=== PATIENT | male | born 1965 | race Caucasian/White ===

== ENCOUNTER → 2016-04-06 | Outpatient (REF) | payer MEDICARE ==
[~2016-04-06] MED LIST: /AUGM875TA PO; /ESOM40CA OR; /HYDR1TAB PO; /ONDA4TA PO; /PANT40TA PO; ACET65TA OR; ALBU0.084 INH; ALBU83IN INH; ALDA25TA2 PO; ALLE180T33 PO; ALLEGRA OR; ASTE0.15; ASTE0.15 INH; Allegra PO; CEFT2VL IV; CIPR500T4 OR; DOXYCYCLINE OR; EYESOL OU; FAMO20TA2 OR; FAMO40TA3 PO; FURO20TA2 PO; FURO40TA2 PO; GLUC500T OR; HYDR1CR TOP; INSULANT SC; LANTUS INSULIN SC; LASI40TA PO; LISI-542 PO; LISPRO SQ; MILK200C PO; MOM30SS PO; MULTIVIT PO; MULTTAB4 PO; NADO40TA PO; NOVOLOG100 MG/ML SC; No Historical Meds; PANT40TA2 PO; PEPC40SU PO; POTA-77 PO; PRIL20CA PO; PROA1AER INH; PROAAER INH; PROTPAK PO; SLF IV; SPIR50TA2 PO; SUCR1SS PO; VITA2000 PO; VITMTA PO; ZINC220C3 PO; [UNRECOGNIZED DRUG - CODE] IV; penicillin vk OR
[2016-04-06 14:26] LABS: BASO % 0.8 % (0.0-1.0); CALCIUM LEVEL 11.8 MG/DL (8.5-10.1); CREATININE FOR GFR 1.44 MG/DL (0.70-1.30); EOS # 0.1 K/mm3 (0.0-0.50); EOS % 2.9 % (0.0-3.0); GLOMERULAR FILTRATION RATE 55.3 (>56); LARGE UNSTAINED CELL # 0.1 K/mm3 (0.0-0.4); LARGE UNSTAINED CELL % 2.5 % (0.0-4.0); LYMPH # 0.5 K/mm3 (1.5-4.5); LYMPH % 12.9 % (24.0-44.0); MEAN CORPUSCULAR HEMOGLOBIN 32.1 pg (27.0-33.0); MEAN CORPUSCULAR HGB CONC 31.9 g/dl (32.0-36.5); MEAN CORPUSCULAR VOLUME 100.7 fl (80.0-96.0); MONO # 0.5 K/mm3 (0.0-0.8); MONO % 15.1 % (0.0-5.0); NEUTROPHILS % 65.7 % (36.0-66.0); POTASSIUM SERUM 4.1 MEQ/L (3.5-5.1); RED CELL DISTRIBUTION WIDTH 17.4 % (11.5-14.5); WHITE BLOOD COUNT 3.1 K/mm3 (4.0-10.0)
[2016-04-06 14:43] LABS: PLATELET COUNT, AUTOMATED 32 k/mm3 (150-450)
== END ==
LOC: M SFHCLERA 12:03
PROVIDERS: ATTEND Family Medicine
DX: D69.6 Thrombocytopenia, unspecified (principal); E83.52 Hypercalcemia; Z79.899 Other long term (current) drug therapy

== ENCOUNTER → 2016-05-16 | Outpatient (CLI) | payer MEDICARE ==
[~2016-05-16] VITALS: Ht 167.6 cm; Wt 81.6 kg
[~2016-05-16] MED LIST changes: +AFRI0.0511; +LIDOCAINE 2% INJ 100 MG/5 ML SDV (FOR ANES.) As Ordered ONE; +NS 1,000 ML IV SCH; +PROPOFOL 500 MG/50 ML VIAL As Ordered ONE; +TUMS500C PO
--- NOTE | 2016-05-16 09:20 | ROOR ---
Patient Name: Will Monet Procedure Date: 05/16/2016 9:02 AM Date of : 1965 Age: 50 Room: [facility] Gender: Male Note Status: Finalized Procedure: Upper GI endoscopy Indications: Cirrhosis rule out esophageal varices, Portal hypertension rule out esophageal varices, Follow-up of esophageal varices Providers: Gamaliel Lopez MD Referring MD: Padilla Zendejas Do Requesting Provider: Medicines: Monitored Anesthesia Care Complications: No immediate complications. Procedure: Pre-Anesthesia Assessment: - The heart rate, respiratory rate, oxygen saturations, blood pressure, adequacy of pulmonary ventilation, and response to care were monitored throughout the procedure. The Endoscope was introduced through the mouth, and advanced to the second part of duodenum. The upper GI endoscopy was accomplished without difficulty. The patient tolerated the procedure well. Findings: The Z-line was regular and was found 40 cm from the incisors. Grade I varices were found in the lower third of the esophagus. They were small in size. Moderate portal hypertensive gastropathy was found in the entire examined stomach. The exam of the duodenum was otherwise normal. Impression: - Z-line regular, 40 cm from the incisors. - Grade I esophageal varices. - Portal hypertensive gastropathy. - No specimens collected. - The examination was otherwise normal. Recommendation: - Patient has a contact number available for emergencies. The signs and symptoms of potential delayed complications were discussed with the patient. Return to normal activities tomorrow. Written discharge instructions were provided to the patient. - High fiber diet. - Discharge patient to home. - Continue present medications. - Return to referring physician. - The findings and recommendations were discussed with the patient's family. Gamaliel Lopez MD Gamaliel Lopez MD 05/16/2016 9:19:58 AM This report has been signed electronically. Number of Addenda: 0 Note Initiated On: 05/16/2016 9:02 AM Estimated Blood Loss: Estimated blood loss: none.
--- NOTE | 2016-05-16 09:44 | ROOR ---
Patient Name: Will Monet Procedure Date: 05/16/2016 9:03 AM Date of : 1965 Age: 50 Room: [facility] Gender: Male Note Status: Finalized Procedure: Colonoscopy to Cecum + Cold Snare Polypectomy + Hemoclips Indications: Rectal bleeding Providers: Gamaliel Lopez MD Referring MD: Padilla Zendejas Do Requesting Provider: Medicines: Monitored Anesthesia Care Complications: No immediate complications. Procedure: Pre-Anesthesia Assessment: - The heart rate, respiratory rate, oxygen saturations, blood pressure, adequacy of pulmonary ventilation, and response to care were monitored throughout the procedure. The Colonoscope was introduced through the anus and advanced to the cecum, identified by appendiceal orifice and ileocecal valve. The colonoscopy was performed without difficulty. The patient tolerated the procedure well. The quality of the bowel preparation was excellent. Findings: The perianal and digital rectal examinations were normal. A small polyp was found in the hepatic flexure. The polyp was sessile. The polyp was removed with a cold snare. Resection and retrieval were complete. To prevent bleeding after the polypectomy, one hemostatic clip was successfully placed (MR conditional). There was no bleeding at the end of the procedure. A small polyp was found at 60 cm proximal to the anus. The polyp was sessile. The polyp was removed with a cold snare. Resection and retrieval were complete. To prevent bleeding post-intervention, one hemostatic clip was successfully placed (MR conditional). There was no bleeding at the end of the procedure. Medium sized, non-bleeding rectal varices were found. The exam was otherwise without abnormality. Impression: - One small polyp at the hepatic flexure, removed with a cold snare. Resected and retrieved. Clip (MR conditional) was placed. - One small polyp at 60 cm proximal to the anus, removed with a cold snare. Resected and retrieved. Clip (MR conditional) was placed. - Rectal varices. - The examination was otherwise normal. - The exam was otherwise normal to the cecum. Recommendation: - Patient has a contact number available for emergencies. The signs and symptoms of potential delayed complications were discussed with the patient. Return to normal activities tomorrow. Written discharge instructions were provided to the patient. - High fiber diet. - Discharge patient to home. - Continue present medications. - Await pathology results. - Check Portal Online for Path Results. - Repeat colonoscopy in 5 years for surveillance based on pathology results. - Return to referring physician. - The findings and recommendations were discussed with the patient's family. Gamaliel Lopez MD Gamaliel Lopez MD 05/16/2016 9:44:11 AM This report has been signed electronically. Number of Addenda: 0 Note Initiated On: 05/16/2016 9:03 AM Estimated Blood Loss: Estimated blood loss: none.
[2016-05-16 10:15] VITALS: BP 133/57
== END | disposition home or self-care (01) ==
LOC: M OPP 08:02
PROVIDERS: ATTEND Internal Medicine Gastroenterology
DX: K62.5 Hemorrhage of anus and rectum (principal); D12.4 Benign neoplasm of descending colon; D12.3 Benign neoplasm of transverse colon; K64.8 Other hemorrhoids; K74.60 Unspecified cirrhosis of liver; I85.10 Secondary esophageal varices without bleeding; K76.6 Portal hypertension; K31.89 Other diseases of stomach and duodenum; Z86.79 Personal history of other diseases of the circulatory system; E10.9 Type 1 diabetes mellitus without complications; R12 Heartburn; D64.9 Anemia, unspecified; Z86.14 Personal history of Methicillin resistant Staphylococcus aureus infection; J45.909 Unspecified asthma, uncomplicated; G47.30 Sleep apnea, unspecified; F10.21 Alcohol dependence, in remission; Z79.4 Long term (current) use of insulin; Z79.899 Other long term (current) drug therapy

== ENCOUNTER 2016-07-30 10:19 | Inpatient (IN) | payer MEDICARE ==
[~2016-07-30] VITALS: Ht 167.6 cm; Wt 20.2 kg
[~2016-07-30 10:19] MED LIST changes: -LIDOCAINE 2% INJ 100 MG/5 ML SDV (FOR ANES.) As Ordered ONE; -NS 1,000 ML IV SCH; -PROPOFOL 500 MG/50 ML VIAL As Ordered ONE
[2016-07-30] MEDS ORDERED: SUCR1SS PO (10:33)
[2016-07-30] MEDS ORDERED: NADO40TA PO (10:33)
[2016-07-30] MEDS ORDERED: NS 500 ML IV ONE (13:00)
[2016-07-30 13:18] LABS: ALBUMIN 2.8 GM/DL (3.2-5.2); ALBUMIN/GLOBULIN RATIO 0.67 (1.00-1.93); ALKALINE PHOSPHATASE 156 U/L (45-117); ALT/SGPT 29 U/L (12-78); ANION GAP 11 MEQ/L (8-16); AST/SGOT 53 U/L (15-37); BILIRUBIN,DIRECT 3.3 MG/DL (0.0-0.2); BILIRUBIN,TOTAL 4.3 MG/DL (0.2-1.0); BLOOD UREA NITROGEN 31 MG/DL (7-18); CALCIUM LEVEL 12.7 MG/DL (8.5-10.1); CARBON DIOXIDE LEVEL 19 MEQ/L (21-32); CHLORIDE LEVEL 105 MEQ/L (98-107); CREATININE FOR GFR 2.06 MG/DL (0.70-1.30); GLOMERULAR FILTRATION RATE 36.6 (>56); GLUCOSE, FASTING 160 MG/DL (70-105); POTASSIUM SERUM 3.9 MEQ/L (3.5-5.1); SODIUM LEVEL 135 MEQ/L (136-145)
[2016-07-30 13:27] LABS: DIFF SLIDE NUMBER 255; MEAN CORPUSCULAR HEMOGLOBIN 26.7 pg (27.0-33.0); MEAN CORPUSCULAR VOLUME 88.9 fl (80.0-96.0); WHITE BLOOD COUNT 3.1 K/mm3 (4.0-10.0)
[2016-07-30 13:36] LABS: ADD MORPHOLOGY? YES; PLATELET COUNT, AUTOMATED 37 k/mm3 (150-450)
[2016-07-30 13:38] LABS: ANISOCYTOSIS 2+; HYPOCHROMASIA 3+; OVALOCYTES 2+
--- NOTE | 2016-07-30 14:19 | REP ---
PA and lateral chest: Comparison is a 2011. There are no focal infiltrates or pleural effusions. Cardiac size is mildly enlarged and has increased from the prior study. There is interstitial coarsening with cephalization of pulmonary vascular flow compatible with pulmonary vascular engorgement as an interval change. . The bandar and mediastinum are unremarkable. There is mild thoracic scoliosis convex right, unchanged. Signed by Trevon Sadler MD 07/30/2016 02:11 P
[2016-07-30 14:45] LABS: PERCENT SATURATION 8.1 % (19.7-37.4); TOTAL IRON BINDING CAPACITY 394 UG/DL (250-450)
[2016-07-30 14:50] LABS: FERRITIN 21 NG/ML (26-388)
[2016-07-30 15:01] LABS: RETIC HEMOGLOBIN CONTENT CHr 31.9 PG (24-36); RETICULOCYTE ABSOLUTE ADVIA212 98 x10(9)/L (17-77)
[2016-07-30] MEDS ORDERED: FURO40TA2 PO (15:11)
[2016-07-30] MEDS ORDERED: ONDANSETRON 4MG/2ML VIAL (J2405) IV PRN (16:00)
[2016-07-30] MEDS ORDERED: BISACODYL 5 MG TAB PO PRN (16:00)
[2016-07-30 16:07] LABS: INR 1.49
[2016-07-30] MEDS ORDERED: LORazepam 2 MG/ML VIAL (J2060) IV PRN (16:15)
[2016-07-30] MEDS ORDERED: CALCIUM CARBONATE 500 MG CHEW U/D PO PRN (16:15)
[2016-07-30] MEDS ORDERED: FEXOFENADINE 60 MG TAB PO PRN (16:15)
[2016-07-30] MEDS ORDERED: AZELASTINE 137MCG NASAL SPY 30 ML (ASTELIN) PRN (16:15)
[2016-07-30 17:50] VITALS: BP 140/71
--- NOTE | 2016-07-30 17:59 | REP ---
CT ABDOMEN: REASON: Elevated bilirubin. COMPARISON: 12/12/2015. The lack of intravenous contrast decreases the sensitivity of the exam. There are chronic lung base changes status quo. There are no pleural or pericardial effusions. Note is again made of a micronodular surface to the liver with an abnormal caudate to left lobe ratio. There is evidence of pericholecystic edema, difficult to evaluate on this noncontrast enhanced exam. There are no choleliths. There is splenomegaly. Limited evaluation of the pancreas and adrenal glands show no gross abnormalities or significant changes from the prior exam. There are no nephroliths. There is no evidence of ureterolithiasis or hydronephrosis. There is a small amount of free fluid anterior to the anterior hepatic edge representing a change from the prior exam. There is no evidence of free intraperitoneal air. The bowel loops and their mesenteries are within normal limits on this noncontrast enhanced exam. There is a small amount of fluid in the right pericolic gutter of uncertain etiology but representing a change from the prior exam. There is no free fluid or free air in the pelvis. There is no pelvic mass or adenopathy. Limited evaluation of the abdominal aorta and paraortic regions show no gross abnormalities or significant changes from the prior exam. Bone window technique throughout the examination shows the osseous structures to be stable and intact. IMPRESSION: 1. Cirrhosis of the liver and splenomegaly status quo. 2. Pericholecystic edema is suspected and seem in a limited fashion as described above but essentially unchanged from the contrast enhanced examination of 12/12/2015. This should be correlated clinically for acute cholecystitis. 3. Small amount of free intraperitoneal fluid of uncertain etiology as described above. Consider followup examination after the administration of both oral bowel preparatory contrast and intravenous contrast agents. 4. Other findings as described above. Signed by Maged Licea DO 07/31/2016 10:07 A
[2016-07-30] MEDS: HumaLOG INSULIN (NovoLOG) PER UNIT SC SCH ×2 (18:48→21:00)
[2016-07-30] MEDS: PANTOPRAZOLE 40MG INJ (PROTONIX) (C9113) IV SCH (18:50)
[2016-07-30 19:45] VITALS: BP 130/62
[2016-07-30 20:00] VITALS: BP 118/59
[2016-07-30] MEDS: cefTRIAXone SOD 1 GM in D5W MINI-BAG PLUS 50 ML IV SCH (21:00)
[2016-07-30] MEDS ORDERED: MULTIVITAMINS/MINERALS THERAP 1 TAB PO SCH (21:00)
[2016-07-30] MEDS: OXYMETAZOLINE NASAL SPRAY (AFRIN) SCH (21:00)
[2016-07-30] MEDS: VITAMIN D 1,000 INTERNATIONAL UNITS TABLET PO SCH (21:10)
[2016-07-30] MEDS: OXAZEPAM 10 MG CAP PO SCH (21:13)
[2016-07-30] MEDS: SUCRALFATE SUSP 1GM/10ML UD PO SCH (21:13)
[2016-07-30] MEDS: NADOLOL 20MG TABLET PO SCH (21:13)
[2016-07-30] MEDS: MULTIVITAMIN -ADULT INJECTION 10 ML, THIAMINE INJection 100 MG, FOLIC ACID 1 MG in NS 1... IV ONE (22:00)
[2016-07-30 22:20] VITALS: BP 115/57
[2016-07-30 23:30] VITALS: BP 107/54
[2016-07-31] VITALS (8 sets, daily range): BP systolic 97–133; BP diastolic 54–70
[2016-07-31] MEDS ORDERED: FUROSEMIDE 20 MG/2 ML VIAL (J1940) IV ONE (00:45)
[2016-07-31] MEDS: MULTIVITAMIN -ADULT INJECTION 10 ML, THIAMINE INJection 100 MG, FOLIC ACID 1 MG in NS 1... IV ONE (05:07)
[2016-07-31 05:39] LABS: DIFF SLIDE NUMBER 86; MEAN CORPUSCULAR HEMOGLOBIN 28.3 pg (27.0-33.0); MEAN CORPUSCULAR HGB CONC 31.9 g/dl (32.0-36.5); MEAN CORPUSCULAR VOLUME 88.7 fl (80.0-96.0); RED CELL DISTRIBUTION WIDTH 19.2 % (11.5-14.5)
[2016-07-31 05:46] LABS: PLATELET COUNT, AUTOMATED 41 k/mm3 (150-450)
[2016-07-31 05:49] LABS: ALBUMIN 2.9 GM/DL (3.2-5.2); ALBUMIN/GLOBULIN RATIO 0.66 (1.00-1.93); BILIRUBIN,TOTAL 6.6 MG/DL (0.2-1.0); CREATININE FOR GFR 1.83 MG/DL (0.70-1.30); GLOMERULAR FILTRATION RATE 41.9 (>56); MAGNESIUM LEVEL 1.4 MG/DL (1.8-2.4); POTASSIUM SERUM 3.4 MEQ/L (3.5-5.1); TOTAL PROTEIN 7.3 GM/DL (6.4-8.2)
[2016-07-31 06:15] LABS: ANISOCYTOSIS 2+; BANDS 1 % (< 11); BASOPHILS 1 % (0-4); EOSINOPHILS 2 % (0-5); NUCLEATED RED BLOOD CELL 1 % (0-0)
[2016-07-31] MEDS ORDERED: MAG SULF 1GM/100ML (MAG RUN) 1 GM in APPROPRIATE DILUENT 1 EA IV ONE (06:15)
[2016-07-31 06:16] LABS: HYPOCHROMASIA 2+
[2016-07-31 06:17] LABS: OVALOCYTES 2+
[2016-07-31] MEDS: OXAZEPAM 10 MG CAP PO SCH ×3 (06:36→21:55)
[2016-07-31] MEDS: HumaLOG INSULIN (NovoLOG) PER UNIT SC SCH ×4 (07:30→21:00)
--- NOTE | 2016-07-31 09:15 | HPE ---
DATE OF ADMISSION: 07/30/2016 PRIMARY CARE PHYSICIAN: Dr. Lee BREAKER MACHINE OPERATOR/ONCOLOGIST: Dr. Cardona DEV TECHNICAL MGR: Dr. Lopez CHIEF COMPLAINT: Weakness as well as shortness of breath. HISTORY OF PRESENT ILLNESS: Mr. Monet is a 50-year-old male with multiple past medical history who presented to emergency room (ER) due to experiencing weakness as well as shortness of breath since yesterday afternoon. 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 Patient expressed that his mother told him that he might have heat stroke. He went back home and he laid down and he felt better. However, he noticed that, with any activities, he became out of breath and he felt tired. This morning, patient continued to feel tired. Patient denies having hematochezia, hemoptysis, or melena. Patient also denied syncope or seizure-type activities; however, patient had two episodes of lightheadedness and he expressed that the lightheadedness and dizziness is not positional and he had them while he was standing. Patient denies sick contact. Patient denies fever, chills, or night sweats. Patient denies weight loss. Patient expressed that last time he drank alcohol was about a week and a half ago. Patient denies problem with bleeding, including when he is brushing his teeth or epistaxis. Patient denies losing his appetite, and he was tolerating oral. Patient expressed that he has been experiencing diarrhea, which started about on Saturday and he had more than five episodes of diarrhea; however, diarrhea became better until Saturday, when it was gone, and he did not have any diarrhea today. HOME MEDICATIONS: - azelastine hydrochloride two sprays NA daily as needed nasal congestion - Tums 500 mg by mouth daily as needed indigestion - vitamin D3, 2000 units by mouth nightly - Shamika Allergy 180 mg by mouth daily as needed congestion - furosemide 40 mg by mouth nightly - Lantus 30 dose subcutaneously (SC) every morning - Lantus 40 units SC nightly - multivitamin one tablet by mouth nightly - nadolol 40 mg by mouth nightly - Afrin 12 hours two sprays NA twice a day nasal congestion - pantoprazole sodium 40 mg by mouth nightly - spironolactone 100 mg by mouth nightly - Carafate 20 mL by mouth nightly ALLERGIES: Environmental allergies. However, patient does not have known drug allergies. PAST MEDICAL HISTORY: 1. Diabetes mellitus type 2. 2. Gastroesophageal reflux disease (GERD). 3. Asthma. 4. Alcoholic cirrhosis. 5. Subcutaneous bacterial endocarditis. 6. Hypertension. 7. Hypercholesterolemia. 8. 12/01/2011 colonoscopy plus adenomas, recurrent colonoscopy in 7-10 years. 9. 12/10/2011 esophagogastroduodenoscopy (EGD) none to mild small varices noted. 10. Grade 1 esophageal varices in one banding and portal hypertension, gastrotomy. 11. 10/15/2014 model for end-stage liver disease (MELD) score 17. PAST SURGICAL HISTORY: 1. Right rotator cuff surgery 2005. 2. EGD with varices banding 09/08/2014. 3. EGD 2015. 4. EGD 05/16/2016, which indicated rectal varices and one small polyp at 60 cm from proximal in anus and one small polyp at the hepatic flexure. 5. EGD which was done 05/16/2016, which indicated portal hypertensive gastrotomy and grade 1 esophageal varices. REVIEW OF SYSTEMS: GENERAL: Patient denies fevers, chills, night sweats, weight loss, weight gain. HEENT: Patient reported two episodes of lightheadedness and dizziness. However, patient denies acute vision or hearing changes. Patient denies sinusitis or problem with chewing food. NECK: Patient denies lumps, bumps, or decreased range of motion of his neck. HEART: Patient denies palpitations, racing or skipping heartbeat, chest pain. LUNGS: Patient expressed that he has been having dyspnea with activities since yesterday. Patient also has chronic cough. However, patient denies increase of his cough. ABDOMEN: Patient denies abdominal pain, nausea, vomiting, diarrhea, constipation , melena, hematochezia, hematemesis. NEUROLOGICAL: Patient denies history of transient ischemic attack (TIA), cerebrovascular accident (CVA), seizure-type activities. PHYSICAL EXAMINATION: VITAL SIGNS: Temperature 99.3, pulse 66, respiratory rate 18, blood pressure 116/55, pulse oximetry 94% on room air. GENERAL APPEARANCE: Patient was lying in bed in no acute distress. Patient was awake, alert, and oriented to time, place, and person. HEENT: Normocephalic, atraumatic. Pupils are equal and reactive to light. Patient has scleral icterus. Oral mucosa is moist. NECK: Soft, supple. No lymphadenopathy or thyromegaly. No jugular venous distention (JVD). HEART: Regular rate and rhythm. Normal S1, S2. ABDOMEN: Soft, extended. Positive bowel sounds in all quadrants. Patient has distended liver. LUNGS: Patient has clear breath sounds bilaterally. Good air movement. EXTREMITIES: Patient has lower extremity edema. +2 pulses in both lower extremities. Feet are warm. Patient's feet sensation has decreased, mostly on the toes, equally. However, patient has normal range of motion both upper and lower extremities. NEUROLOGICAL: Cranial nerves II-XII are intact. No focal deficiencies. LABORATORY DATA: White blood cells 3.1, red blood cells 2.24, hemoglobin 6, hematocrit 19.9, MCV 88.9, MCH 26.7, MCHC 30, RDW 20, platelet count 37, platelet estimate markedly decreased, hypochromasia 3+, anisocytosis 2+, ovalocytes 2+, absolute reticulocyte 98, percent reticulocyte 4.30, reticulocyte hemoglobin content (CHr) 31.9. PT 18.1, INR 1.49. Sodium 135, potassium 3.9, chloride 105, carbon dioxide 19, BUN 31, anion gap 11 , creatinine 2.06, glomerular filtration rate 36.6, fasting glucose 160. Lactic acid 2.1. Calcium 12.7, iron 32, TIBC 394, transferrin percentage saturation 8.1 , ferritin 21, total bilirubin 4.3, direct bilirubin 3.3, AST 53, ALT 29, alkaline phosphatase 156. Ammonia 68. Total creatinine kinase 63, CK-MB 1.8, CK-MB relative index 2.85, troponin I less than 0.02, total protein 7, albumin 2.8, TSH 3.23. Urinalysis (UA): Urine color yellow, urine appearance clear, urine pH 6, urine specific gravity 1.008, urine protein negative, urine glucose negative, urine ketones negative, urine blood negative, urine nitrite negative, urine bilirubin negative, urine urobilinogen 0.2, urine leukocyte esterase negative, urine white blood cells 1, urine red blood cells 0, urine hyaline casts 1, urine bacteria negative, urine squamous epithelial cells 0. Urine toxicology: Ethyl alcohol 0.14. Blood culture is pending. Chest x-ray, which is compared to 10/03/2011, shows no focal infiltrate or pleural effusion. Cardiac size is mildly enlarged and increased from the prior study. There is interstitial coarsening with cephalization of the pulmonary vascular flow compatible with the pulmonary vascular engorgement as an interval change. The bandar and mediastinum are unremarkable. There is mild thoracic scoliosis convex right, unchanged. ASSESSMENT AND PLAN: 1. Symptomatic anemia. This is possibly secondary to gastrointestinal (GI) bleeding. At this time, we made the patient nothing by mouth. Will give 2 units of red blood cells. We will continue monitoring the hemoglobin and hematocrit. I have consulted Dr. Lopez, who will see the patient tomorrow. Patient has had colonoscopy, which was done on 05/16/2016 which was done by Dr. Lopez, which indicated rectal varices and EGD on the same date, which was done by Dr. Lopez, which indicated grade 1 esophageal varices. these varices possibly contributed to patient's current GI bleeding. Also, we have performed iron studies, which indicated decreased iron, which is possibly secondary to GI bleeding. 2. Pancytopenia. This is possibly multifactorial, related to liver cirrhosis, alcoholism, folate deficiency. At this time, we will continue monitoring patient's complete blood count (CBC); however, we have not ordered platelet transfusion at this time due to patient being stable. However, if patient develop gross bleeding, we will infuse platelets. 3. Alcoholic cirrhosis. This is a chronic issue for the patient. At this time, we will continue patient on nadolol due to varices. Dr. Lopez will visit the patient tomorrow. 4. Diabetes type 2. At home, patient is on Levemir 40 units nightly and 30 units every morning; however, at this time, we made the patient nothing by mouth and, therefore, we have held the Levemir. We will continue patient on the sliding scale and fingersticks every 6 hours. 5. Acute kidney injury. This is possibly pre-azotemia (hepatorenal effect versus hypovolemia secondary to anemia) as well as azotemia (medications including spironolactone and furosemide). At this time, we have started patient with blood transfusion. Also, I have stopped spironolactone and furosemide. We will continue monitoring patient for any abnormal symptoms. 6. Deep venous thrombosis (DVT) prophylaxis. Patient has thrombocytopenia as well as GI bleeding disorder. At this time, we will continue patient on thromboembolism deterrents (TEDs) and sequentials. 7. Alcoholism. I have started patient on a banana bag for day. However, tomorrow , I have started patient on PO folic acid, B12, and thiamine. Also, due to patient continuing alcohol abuse and the toxicology indicated high level of ethyl alcohol, we have started patient on Serax 10 mg every 8 hours by mouth and Ativan 1 mg every 1 hour as needed agitation and withdrawal. 8. Elevated lactic acid. This is possibly secondary to stress. We will repeat the lactic acid in 4 hours. Result is pending at this time. However, we have ordered blood culture and the result is pending. 9. Allergies. We will continue patient on Astelin two sprays daily as needed nasal congestion as well as Shamika as well as Afrin one spray each nostril twice a day. 10. Antibiotic prophylaxis for patients with risk factors for spontaneous bacterial peritonitis (SBP): since patient has cirrhosis and gastrointestinal bleeding with possible Child-Flores class B or C cirrhosis, therefore I have started him on ceftriaxone for prophylaxis. 11. Iron deficiency: we have performed iron studies, which indicated decreased iron level, which is possibly secondary to GI bleeding. Patient schedule to receive two unit of RBC. My preceptor for this patient encounter was Dr. Bong Ayala. The preceptor was physically present in the building during the encounter and was fully available. As needed, all aspects of the patient interview, examination, medical decision making process, and medical care plan development were reviewed and approved by the preceptor. The preceptor is aware and concurs with the plan as stated in the body of this note and will attest to such by his/her cosignature. SIMI
--- NOTE | 2016-07-31 09:19 | ECGEPIP ---
Stationary ECG Study [facility] - ED Test Date: 2016-07-30 Pat Name: ROSE ARMIJO Department: Room: [place] [address] Gender: M Cable Splicer: kecia : 1965 Requested By: JORGE Giron Order Number: [id number] Reading MD: Dottie Eric Measurements Intervals [place] Rate: 64 P: 51 MN: 232 QRS: 94 QRSD: 118 T: 12 QT: 409 QTc: 423 Interpretive Statements SINUS RHYTHM WITH FIRST DEGREE AV BLOCK BORDERLINE RIGHT AXIS DEVIATION MODERATE INTRAVENTRICULAR CONDUCTION DELAY Electronically Signed On 07-31-2016 9:18:50 EDT by Dottie Eric
[2016-07-31] MEDS: OXYMETAZOLINE NASAL SPRAY (AFRIN) SCH ×2 (09:44→21:00)
[2016-07-31] MEDS: cefTRIAXone SOD 1 GM in D5W MINI-BAG PLUS 50 ML IV SCH ×2 (09:44→21:54)
[2016-07-31] MEDS: THIAMINE 100 MG TAB PO SCH (09:44)
[2016-07-31] MEDS: CYANOCOBALAMIN 500 MCG TAB PO SCH (09:44)
[2016-07-31] MEDS: FOLIC ACID 1 MG TAB PO SCH (09:44)
[2016-07-31] MEDS ORDERED: NS 1,000 ML IV SCH (12:26)
--- NOTE | 2016-07-31 15:00 | IPNPDOC ---
Subjective Date Seen The patient was seen on 07/31/16. Subjective Chief Complaint/HPI The patient is a 50-year-old male admitted with a reason for visit of Acute Renal Failure. Events since last encounter Feeling a little stronger, no blood per rectum, no melena, would like to try diet, no abd pain Constitutional: Denies: Chills, Fever Pulmonary: Denies: Dyspnea, Cough Cardiovascular: Denies: Chest Pain Gastrointestinal: Denies: Nausea, Vomiting Objective Physical Examination General Exam: Positive: Alert, Cooperative, No Acute Distress Eye Exam: Positive: PERRLA ENT Exam: Positive: Mucous membr. moist/pink Chest Exam: Positive: Clear to auscultation, Negative: Rales, Rhonchi Heart Exam: Positive: Rate Normal, Normal S1 Telemetry: Positive: No significant arrhythmia Abdomen Exam: Positive: BS Hypoactive, Soft, Negative: Tenderness Extremity Exam: Positive: Edema Assessment /Plan Problems (1) Anemia due to gastrointestinal blood loss Status: Acute Discussed With: Shampooer Problem Text: Symptomatic anemia, with heme positive stool Discussed plans for egd 08/01/[address] Lopez Can have diet today, NPO at midnight for procedure 3 Units PRBC transfused (2) ARF (acute renal failure) Status: Acute Response to Treatment: Improving Problem Text: Given IVF Now eating , will restart fluid in am (3) Alcohol withdrawal Status: Acute Problem Text: on serax, ativan received banana bag no tremor/anxiety/over sedation- monitor for withdrawal (4) Alcoholic cirrhosis Status: Chronic (5) Thrombocytopenia Status: Chronic (6) DM2 (diabetes mellitus, type 2) Status: Chronic Plan/VTE VTE Prophylaxis Ordered?: Yes VS, I&O, 24H, [facility] Vital Signs/I&O Vital Signs Date Time Temp Pulse Resp B/P (MAP) Pulse Ox O2 Delivery O2 Flow Rate FiO2 07/31/16 11:31 98.1 64 18 115/65 (82) 97 Room Air I&O- Last 24 Hours up to 6 AM 07/31/16 05:59 Intake Total 1497 ml Output Total 1650 ml Balance -153 ml Laboratory Data 24H LABS Laboratory Tests 2 07/30/16 17:12: Urine Appearance CLEAR, Urine Color YELLOW, Urine pH 6.0, Urine Specific Kemp 1.008, Urine Protein NEGATIVE, Urine Glucose (UA) NEGATIVE, Urine Ketones NEGATIVE, Urine Urobilinogen 0.2, Urine Bilirubin NEGATIVE, Urine Leukocyte Esterase NEGATIVE, Urine Blood NEGATIVE, Urine Nitrite NEGATIVE, Urine WBC (Auto) 1, Urine RBC (Auto) 0, Urine Hyaline Casts (Auto) 1, Urine Bacteria (Auto) NEGATIVE, Urine Squamous Epithelial Cells 0, Urine Sperm (Auto) 07/30/16 18:26: Lactic Acid Followup at 4 Hours 1.4, Total Creatine Kinase 80, Creatine Kinase MB 1.3, Creatine Kinase MB Relative Index 1.62, Troponin I < 0.02 07/30/16 21:17: Bedside Glucose (Misc Panel) 175H 07/30/16 23:29: Total Creatine Kinase 74, Creatine Kinase MB 1.6, Creatine Kinase MB Relative Index 2.16, Troponin I 0.04# 07/31/16 01:48: Bedside Glucose (Misc Panel) 158H 07/31/16 05:08: Neutrophils 75, Band Neutrophils 1, Lymphocytes (Manual) 14L, Monocytes (Manual ) 7, Eosinophils (Manual) 2, Basophils (Manual) 1, Nucleated Red Blood Cells 1H , Platelet Estimate MARKED DECREASE, Hypochromasia 2+, Anisocytosis 2+, Ovalocytes 2+, Anion Gap 9, Glomerular Filtration Rate 41.9L, Blood Urea Nitrogen 32H, Creatinine 1.83H, Sodium Level 137, Potassium Level 3.4L, Chloride Level 107, Carbon Dioxide Level 21, Calcium Level 12.0H, Aspartate Amino Transf (AST/SGOT) 53H, Alanine Aminotransferase (ALT/SGPT) 25, Alkaline Phosphatase 143H, Total Bilirubin 6.6#H, Total Protein 7.3, Albumin 2.9L, Magnesium Level 1.4L, Albumin/Globulin Ratio 0.66L 07/31/16 12:09: Bedside Glucose (Misc Panel) 167H CBC/BMP Laboratory Tests 07/30/16 18:26 07/30/16 23:29 07/31/16 05:08 Red Blood Count 2.98 L, Mean Corpuscular Volume 88.7, Mean Corpuscular Hemoglobin 28.3, Mean Corpuscular Hemoglobin Concent 31.9 L, Red Cell Distribution Width 19.2 H, Calcium Level 12.0 H, Aspartate Amino Transf (AST/ SGOT) 53 H, Alanine Aminotransferase (ALT/SGPT) 25, Alkaline Phosphatase 143 H, Total Bilirubin 6.6 #H, Total Protein 7.3, Albumin 2.9 L 07/31/16 10:14 Microbiology Microbiology 07/30/16 Blood Culture - Preliminary, Resulted No growth after 24 hours . All specim... 07/30/16 Blood Culture - Preliminary, Resulted No growth after 24 hours . All specim... JORGE TRUJILLO MD Jul 31, 2016 15:00
[2016-07-31] MEDS: PANTOPRAZOLE 40MG INJ (PROTONIX) (C9113) IV SCH (17:51)
[2016-07-31] MEDS: NADOLOL 20MG TABLET PO SCH (21:00)
[2016-07-31] MEDS: VITAMIN D 1,000 INTERNATIONAL UNITS TABLET PO SCH (21:54)
[2016-07-31] MEDS: SUCRALFATE SUSP 1GM/10ML UD PO SCH (21:55)
[2016-07-31] MEDS: MULTIVITAMINS/MINERALS THERAP 1 TAB PO SCH (21:55)
[2016-08-01] MEDS: OXAZEPAM 10 MG CAP PO SCH ×3 (05:13→22:16)
[2016-08-01 06:00] VITALS: BP 168/95
[2016-08-01 06:10] LABS: BASO % 0.8 % (0.0-1.0); EOS # 0.2 K/mm3 (0.0-0.50); EOS % 5.2 % (0.0-3.0); LARGE UNSTAINED CELL # 0.1 K/mm3 (0.0-0.4); LARGE UNSTAINED CELL % 3.8 % (0.0-4.0); LYMPH # 0.5 K/mm3 (1.5-4.5); LYMPH % 15.8 % (24.0-44.0); MEAN CORPUSCULAR HEMOGLOBIN 28.1 pg (27.0-33.0); MEAN CORPUSCULAR HGB CONC 31.1 g/dl (32.0-36.5); MEAN CORPUSCULAR VOLUME 90.3 fl (80.0-96.0); MONO # 0.4 K/mm3 (0.0-0.8); MONO % 13.1 % (0.0-5.0); NEUTROPHILS # 1.8 K/mm3 (1.8-7.7); NEUTROPHILS % 61.3 % (36.0-66.0); RED CELL DISTRIBUTION WIDTH 19.7 % (11.5-14.5); WHITE BLOOD COUNT 2.9 K/mm3 (4.0-10.0)
[2016-08-01 06:11] LABS: PLATELET COUNT, AUTOMATED 39 k/mm3 (150-450)
[2016-08-01 06:29] LABS: ALBUMIN 2.9 GM/DL (3.2-5.2); ALBUMIN/GLOBULIN RATIO 0.64 (1.00-1.93); BILIRUBIN,TOTAL 5.5 MG/DL (0.2-1.0); CALCIUM LEVEL 11.6 MG/DL (8.5-10.1); CREATININE FOR GFR 1.57 MG/DL (0.70-1.30); MAGNESIUM LEVEL 1.4 MG/DL (1.8-2.4); POTASSIUM SERUM 3.2 MEQ/L (3.5-5.1); TOTAL PROTEIN 7.4 GM/DL (6.4-8.2)
[2016-08-01] MEDS: HumaLOG INSULIN (NovoLOG) PER UNIT SC SCH ×4 (07:30→21:00)
[2016-08-01] MEDS: THIAMINE 100 MG TAB PO SCH (07:52)
[2016-08-01] MEDS: FOLIC ACID 1 MG TAB PO SCH (07:52)
[2016-08-01] MEDS: CYANOCOBALAMIN 500 MCG TAB PO SCH (07:53)
[2016-08-01] MEDS ORDERED: KCL 10MEQ IN 100ML SWI (KRUN) 10 MEQ in APPROPRIATE DILUENT 1 EA IV ONE ×2 (08:00)
[2016-08-01] MEDS ORDERED: NS 1,000 ML IV SCH (08:00)
[2016-08-01] MEDS: OXYMETAZOLINE NASAL SPRAY (AFRIN) SCH (09:00)
[2016-08-01] MEDS: cefTRIAXone SOD 1 GM in D5W MINI-BAG PLUS 50 ML IV SCH ×2 (09:28→22:18)
[2016-08-01] MEDS: MAG SULF 1GM/100ML (MAG RUN) 1 GM in APPROPRIATE DILUENT 1 EA IV SCH ×2 (09:29→10:44)
[2016-08-01] MEDS ORDERED: PROPOFOL 200 MG/20 ML VIAL As Ordered ONE (15:00)
[2016-08-01] MEDS ORDERED: LIDOCAINE 2% INJ 100 MG/5 ML SDV (FOR ANES.) As Ordered ONE (15:00)
--- NOTE | 2016-08-01 15:22 | IPNPDOC ---
Subjective Date Seen The patient was seen on 08/01/16. Subjective Chief Complaint/HPI The patient is a 50-year-old male admitted with a reason for visit of Acute Renal Failure. Events since last encounter Somewhat anxious about egd, not tremulous, not hungry, no pain, no n/v Constitutional: Denies: Chills, Fever Pulmonary: Denies: Dyspnea, Cough Cardiovascular: Denies: Chest Pain, Palpitations Gastrointestinal: Denies: Nausea, Vomiting, Abdominal Pain Psych: Reports: Anxiety Objective Physical Examination General Exam: Positive: Alert, Cooperative, No Acute Distress Eye Exam: Positive: PERRLA, Negative: Sclera icteric ENT Exam: Positive: Mucous membr. moist/pink Chest Exam: Positive: Clear to auscultation, Negative: Rales, Rhonchi, Wheezing Heart Exam: Positive: Rate Normal, Normal S1 Abdomen Exam: Positive: BS Hypoactive, Soft, Negative: Tenderness Extremity Exam: Positive: Edema Assessment /Plan Problems (1) Anemia due to gastrointestinal blood loss Status: Acute Discussed With: Manager Academic Problem Text: Symptomatic anemia, with heme positive stool Discussed plans for egd 08/01/[address] Lopez NPO for procedure today, egd with banding if needed 3 Units PRBC transfused (2) ARF (acute renal failure) Status: Acute Response to Treatment: Improving Problem Text: on IVF while npo (3) Alcohol withdrawal Status: Acute Problem Text: on serax, ativan received banana bag no tremor/anxiety/over sedation- monitor for withdrawal- not interested in rehab (4) Alcoholic cirrhosis Status: Chronic (5) Thrombocytopenia Status: Chronic (6) DM2 (diabetes mellitus, type 2) Status: Chronic Plan/VTE VTE Prophylaxis Ordered?: Yes VS, I&O, 24H, Fishbone Vital Signs/I&O Vital Signs Date Time Temp Pulse Resp B/P (MAP) Pulse Ox O2 Delivery O2 Flow Rate FiO2 08/01/16 06:00 98.0 57 17 168/95 (119) 95 Room Air I&O- Last 24 Hours up to 6 AM 08/01/16 06:00 Intake Total 1862.5 ml Output Total 800 ml Balance 1062.5 ml Laboratory Data 24H LABS Laboratory Tests 2 07/31/16 17:16: Bedside Glucose (Misc Panel) 165H 07/31/16 21:12: Bedside Glucose (Misc Panel) 179H 08/01/16 05:37: White Blood Count 2.9L, Red Blood Count 3.09L, Hemoglobin 8.7L, Hematocrit 27.9L , Mean Corpuscular Volume 90.3, Mean Corpuscular Hemoglobin 28.1, Mean Corpuscular Hemoglobin Concent 31.1L, Red Cell Distribution Width 19.7H, Platelet Count 39L, Neutrophils (%) (Auto) 61.3, Lymphocytes (%) (Auto) 15.8L, Monocytes (%) (Auto) 13.1H, Eosinophils (%) (Auto) 5.2H, Basophils (%) (Auto) 0.8, Neutrophils # (Auto) 1.8, Lymphocytes # (Auto) 0.5L, Monocytes # (Auto) 0.4 , Eosinophils # (Auto) 0.2, Basophils # (Auto) 0.0, Large Unclassified Cells % 3.8, Large Unclassified Cells # 0.1, Anion Gap 9, Glomerular Filtration Rate 50.0L, Blood Urea Nitrogen 28H, Creatinine 1.57H, Sodium Level 141, Potassium Level 3.2L, Chloride Level 111H, Carbon Dioxide Level 21, Calcium Level 11.6H, Aspartate Amino Transf (AST/SGOT) 59H, Alanine Aminotransferase (ALT/SGPT) 30, Alkaline Phosphatase 125H, Total Bilirubin 5.5H, Total Protein 7.4, Albumin 2.9L , Magnesium Level 1.4L, Albumin/Globulin Ratio 0.64L CBC/BMP Laboratory Tests 07/31/16 15:55 07/31/16 22:00 08/01/16 05:37 Red Blood Count 3.09 L, Mean Corpuscular Volume 90.3, Mean Corpuscular Hemoglobin 28.1, Mean Corpuscular Hemoglobin Concent 31.1 L, Red Cell Distribution Width 19.7 H, Neutrophils (%) (Auto) 61.3, Lymphocytes (%) (Auto) 15.8 L, Monocytes (%) (Auto) 13.1 H, Eosinophils (%) (Auto) 5.2 H, Basophils (% ) (Auto) 0.8, Neutrophils # (Auto) 1.8, Lymphocytes # (Auto) 0.5 L, Monocytes # (Auto) 0.4, Eosinophils # (Auto) 0.2, Basophils # (Auto) 0.0, Calcium Level 11.6 H, Aspartate Amino Transf (AST/SGOT) 59 H, Alanine Aminotransferase (ALT/ SGPT) 30, Alkaline Phosphatase 125 H, Total Bilirubin 5.5 H, Total Protein 7.4, Albumin 2.9 L Microbiology Microbiology 07/30/16 Blood Culture - Preliminary, Resulted No Growth after 48 hours. All Specime... 07/30/16 Blood Culture - Preliminary, Resulted No Growth after 48 hours. All Specime... JORGE TRUJILLO MD Aug 01, 2016 15:22
[2016-08-01] MEDS: PANTOPRAZOLE 40MG INJ (PROTONIX) (C9113) IV SCH (17:18)
[2016-08-01 22:00] VITALS: BP 139/71
[2016-08-01] MEDS: SUCRALFATE SUSP 1GM/10ML UD PO SCH (22:16)
[2016-08-01] MEDS: MULTIVITAMINS/MINERALS THERAP 1 TAB PO SCH (22:16)
[2016-08-01] MEDS: VITAMIN D 1,000 INTERNATIONAL UNITS TABLET PO SCH (22:16)
[2016-08-01 22:18] VITALS: BP 139/73
[2016-08-01] MEDS: NADOLOL 20MG TABLET PO SCH (22:18)
[2016-08-02 05:47] LABS: BASO # 0.1 K/mm3 (0.0-0.2); EOS # 0.1 K/mm3 (0.0-0.50); EOS % 4.8 % (0.0-3.0); LARGE UNSTAINED CELL # 0.1 K/mm3 (0.0-0.4); LARGE UNSTAINED CELL % 3.8 % (0.0-4.0); LYMPH # 0.5 K/mm3 (1.5-4.5); LYMPH % 16.8 % (24.0-44.0); MEAN CORPUSCULAR HEMOGLOBIN 27.5 pg (27.0-33.0); MEAN CORPUSCULAR HGB CONC 30.1 g/dl (32.0-36.5); MEAN CORPUSCULAR VOLUME 91.4 fl (80.0-96.0); MONO # 0.4 K/mm3 (0.0-0.8); MONO % 12.9 % (0.0-5.0); NEUTROPHILS # 1.8 K/mm3 (1.8-7.7); NEUTROPHILS % 59.6 % (36.0-66.0); RED CELL DISTRIBUTION WIDTH 19.7 % (11.5-14.5)
[2016-08-02 05:48] LABS: PLATELET COUNT, AUTOMATED 34 k/mm3 (150-450)
[2016-08-02 05:51] LABS: ALBUMIN 2.6 GM/DL (3.2-5.2); ALBUMIN/GLOBULIN RATIO 0.58 (1.00-1.93); CALCIUM LEVEL 10.8 MG/DL (8.5-10.1); CREATININE FOR GFR 1.52 MG/DL (0.70-1.30); GLOMERULAR FILTRATION RATE 51.9 (>56); MAGNESIUM LEVEL 1.7 MG/DL (1.8-2.4); POTASSIUM SERUM 3.4 MEQ/L (3.5-5.1); TOTAL PROTEIN 7.1 GM/DL (6.4-8.2)
[2016-08-02 06:00] VITALS: BP 107/66
[2016-08-02] MEDS: OXAZEPAM 10 MG CAP PO SCH (06:16)
[2016-08-02] MEDS: HumaLOG INSULIN (NovoLOG) PER UNIT SC SCH ×2 (07:30→12:00)
[2016-08-02] MEDS: THIAMINE 100 MG TAB PO SCH (09:36)
[2016-08-02] MEDS: CYANOCOBALAMIN 500 MCG TAB PO SCH (09:36)
[2016-08-02] MEDS: FOLIC ACID 1 MG TAB PO SCH (09:36)
[2016-08-02] MEDS: cefTRIAXone SOD 1 GM in D5W MINI-BAG PLUS 50 ML IV SCH (09:37)
[2016-08-02] MEDS ORDERED: OXAZ10CA PO (11:23)
[2016-08-02] MEDS ORDERED: VITA100T60 PO (11:23)
[2016-08-02] MEDS ORDERED: FOLI1TAB2 PO (11:23)
[2016-08-02] MEDS ORDERED: POTASSIUM CHLORIDE 10 MEQ SR TABLET PO ONE (11:30)
--- NOTE | 2016-08-02 21:54 | CR ---
DATE OF CONSULTATION: 08/01/2016 This is a 50-year-old white male who was admitted to [facility] ([facility]) for evaluation of acute anemia. The patient has a known history of heavy alcohol abuse. He has had an upper endoscopy and colonoscopy in April which showed some grade 1 varices, but no obvious active bleeding. The patient now admitted to the emergency room for increasing weakness and shortness of breath. The patient denies any complaints of melena, hematochezia, or bright blood per rectum. The patient continues to drink alcohol and he refuses to stop drinking. The patient is now being admitted for treatment of his anemia and evaluation. PAST MEDICAL HISTORY: Includes: 1. Diabetes mellitus. 2. Reflux. 3. Asthma. 4. Alcoholic induced cirrhosis. 5. History of subcutaneous bacterial endocarditis. 6. Hypertension. 7. Hypercholesterolemia. 8. History of EGD and colonoscopy back in April of this year. PAST SURGICAL HISTORY: Status post rotator cuff surgery in 2005, EGD with varices and banding in 2014, EGD 05/16/2016 positive rectal varices with small polyp and the patient had an upper endoscopy which showed portal hypertension with grade 1 varices. REVIEW OF SYSTEMS: Noncontributory to the above problem. PHYSICAL EXAMINATION: He is a well-developed, well-nourished white male who is obviously icteric. Chest: Clear to auscultation. Cardiovascular exam showed regular rhythm. No murmurs or gallops. Normal physiological split of S1, S2. Abdomen: Soft, nontender. No masses, guarding or rebound. No hepatosplenomegaly. Bowel sounds positive. Diagnostic imaging showed abdominal CT on 07/30/2016, which showed cirrhosis and hepatosplenomegaly. No other clinical pathology was noted on CT. Laboratory studies on admission showed a hemoglobin and hematocrit of 6 and 19.9, platelets of 37,000. White count was 2000. The patient has pancytopenia. Chemistry shows a total bilirubin of 5.5, AST 59, alkaline phosphatase 125, albumin is 2.9. ANALYSIS: Anemia secondary to probable hypertensive portal gastropathy due to alcohol induced cirrhosis. PLAN: Will be to set the patient up for an upper endoscopy for evaluation of his upper gastrointestinal (GI) tract and to transfuse as needed. I have discussed cessation of alcohol. The patient refuses.
--- NOTE | 2016-08-03 06:40 | DSES ---
DATE OF ADMISSION: 07/30/2016 DATE OF DISCHARGE: 08/02/2016 SPECIALISTS INVOLVED IN CARE: Dr. Lopez. PROCEDURES PERFORMED DURING STAY: Esophagogastroduodenoscopy (EGD). DISCHARGE DIAGNOSES: 1. Anemia due to suspected gastrointestinal (GI) blood loss. 2. Acute renal failure. 3. Alcohol withdrawal. 4. Alcoholic cirrhosis. 5. Thrombocytopenia. 6. Type two diabetes. SUMMARY OF HOSPITALIZATION: This is a 50-year-old who presented with weakness, thought he might need another blood transfusion again. Was found to have heme-positive stool in the emergency department. Was admitted to the hospitalist service. Received three units of blood in total during his stay. Underwent and EGD which showed no evidence of active bleeding. There is no banding required. Diet was advanced. Hemoglobin and hematocrit (H and H) remained stable. On the day of discharge, he is feeling well, felt back to his baseline. No complaints of pain, chest pain, shortness of breath. OBJECTIVE: VITAL SIGNS: Temperature 97.9, pulse 65, respiratory rate 17, blood pressure 107/66, 96% on room air. LUNGS: Breathing is symmetrical and rested. HEART: Regular rate and rhythm. ABDOMEN: Soft, doughy, nontender. LABORATORY DATA: White cell count is 3.0, hemoglobin 8.7, and platelets of 30. Pancytopenia appears to be chronic. He has had a previous peripheral smear that appeared to show that pancytopenia was related to cirrhosis. DISCHARGE INSTRUCTIONS: Followup with Dr. Lozano on 08/10 at 11 a.m. at the resident clinic. Call outpatient rehabilitation, followup as soon as possible. Activity as tolerated. Diet as tolerated. Avoid alcohol. Medications include: - folic acid 1 mg by mouth daily - Serax tapering dose over the course of five days - thiamine 100 mg by mouth daily - Astelin nasal spray once daily as needed - calcium carbonate once daily as needed - vitamin D supplement - Shamika 180 mg as needed - Lasix 40 mg by mouth daily at bedtime - Lantus 30 units every morning, 40 units at bedtime - multivitamin tablet daily - nadolol 40 mg by mouth daily at bedtime - Afrin nasal spray as needed - Protonix 40 mg by mouth daily at bedtime - spironolactone 100 mg by mouth daily at bedtime - Sucralfate 20 mg by mouth daily at bedtime
== END 2016-08-02 12:50 | disposition home or self-care (01) | DRG 812 ==
LOC: M ED 11:33 → M ED INP 15:38 → M PCU 17:35 → M MSPAV 07-31 17:03
PROVIDERS: ADMIT Internal Medicine; ATTEND Internal Medicine
PROC: 30233N1 Transfusion of Nonautologous Red Blood Cells into Peripheral Vein, Percutaneous Approach (ICD-10-PCS; 2016-07-30)
PROC: 0DJ08ZZ Inspection of Upper Intestinal Tract, Via Natural or Artificial Opening Endoscopic (ICD-10-PCS; principal; 2016-08-01 14:45)
DX: D64.9 Anemia, unspecified (principal); K92.2 Gastrointestinal hemorrhage, unspecified; N17.9 Acute kidney failure, unspecified; F10.239 Alcohol dependence with withdrawal, unspecified; K70.30 Alcoholic cirrhosis of liver without ascites; E78.00 Pure hypercholesterolemia, unspecified; J30.89 Other allergic rhinitis; I10 Essential (primary) hypertension; K21.9 Gastro-esophageal reflux disease without esophagitis; E11.9 Type 2 diabetes mellitus without complications; Z79.4 Long term (current) use of insulin; Z79.899 Other long term (current) drug therapy

== ENCOUNTER → 2016-08-09 | Outpatient (REF) | payer MEDICAID, MEDICARE ==
[~2016-08-09] MED LIST changes: +FOLI1TAB4 PO; +OXAZ10CA3 PO; -PROA1AER INH; +PROAAER10 INH; +VITA100T60 PO
== END ==
LOC: M SFHCPLAZ 11:43
PROVIDERS: ATTEND Family Medicine
DX: E11.9 Type 2 diabetes mellitus without complications (principal)

== ENCOUNTER → 2016-08-09 | Outpatient (CLI) | payer MEDICAID, MEDICARE ==
[2016-08-09 14:09] LABS: BASO # 0.1 K/mm3 (0.0-0.2); BASO % 1.4 % (0.0-1.0); EOS # 0.1 K/mm3 (0.0-0.50); EOS % 3.1 % (0.0-3.0); LARGE UNSTAINED CELL # 0.1 K/mm3 (0.0-0.4); LARGE UNSTAINED CELL % 1.8 % (0.0-4.0); LYMPH # 0.7 K/mm3 (1.5-4.5); LYMPH % 15.8 % (24.0-44.0); MEAN CORPUSCULAR HEMOGLOBIN 27.9 pg (27.0-33.0); MEAN CORPUSCULAR HGB CONC 31.6 g/dl (32.0-36.5); MEAN CORPUSCULAR VOLUME 88.3 fl (80.0-96.0); MONO # 0.3 K/mm3 (0.0-0.8); MONO % 7.1 % (0.0-5.0); NEUTROPHILS # 3.3 K/mm3 (1.8-7.7); NEUTROPHILS % 70.8 % (36.0-66.0); WHITE BLOOD COUNT 4.6 K/mm3 (4.0-10.0)
[2016-08-09 14:14] LABS: PLATELET COUNT, AUTOMATED 39 k/mm3 (150-450)
== END ==
LOC: M LRY 11:36
PROVIDERS: ATTEND Internal Medicine Gastroenterology
DX: E11.9 Type 2 diabetes mellitus without complications (principal); K76.6 Portal hypertension; I85.10 Secondary esophageal varices without bleeding; K70.31 Alcoholic cirrhosis of liver with ascites

== ENCOUNTER → 2016-11-30 | Outpatient (REF) | payer MEDICARE ==
[2016-11-30 16:50] LABS: MEAN CORPUSCULAR HEMOGLOBIN 31.5 pg (27.0-33.0); MEAN CORPUSCULAR HGB CONC 31.8 g/dl (32.0-36.5); MEAN CORPUSCULAR VOLUME 98.8 fl (80.0-96.0); RED CELL DISTRIBUTION WIDTH 17.1 % (11.5-14.5); WHITE BLOOD COUNT 2.3 10^3/uL (4.0-10.0)
[2016-11-30 17:01] LABS: INR 1.31
[2016-11-30 17:30] LABS: PLATELET COUNT, AUTOMATED 19 10^3/uL (150-450); POS COUNT POS FLAG
[2016-11-30 18:17] LABS: IMMATURE PLATELET FRACTION % 5.8 % (0.0-10.9)
== END ==
LOC: M SFHCPLAZ 12:13
PROVIDERS: ATTEND Student in an Organized Health Care Education/Training Program
DX: K70.30 Alcoholic cirrhosis of liver without ascites (principal); R58 Hemorrhage, not elsewhere classified; Z79.899 Other long term (current) drug therapy

== ENCOUNTER 2016-12-04 15:02 | Outpatient (CLI) | payer MEDICAID, MEDICARE ==
[~2016-12-04 15:02] MED LIST changes: +diphenhydrAMINE 25 MG CAP PO SCH
[2016-12-04] MEDS ORDERED: diphenhydrAMINE 50 MG CAP PO ONE (17:15)
[2016-12-04 17:26] VITALS: BP 136/70
[2016-12-04 18:26] VITALS: BP 130/64
[2016-12-04 22:00] VITALS: BP 132/60
== END 2016-12-05 03:30 | disposition home or self-care (01) ==
LOC: M INFU 15:02 → M MSPAV 16:30 → M INFU 12-05 03:30
PROVIDERS: ATTEND Family Medicine
DX: D64.9 Anemia, unspecified (principal); Z79.4 Long term (current) use of insulin; Z79.899 Other long term (current) drug therapy; E11.9 Type 2 diabetes mellitus without complications; M19.90 Unspecified osteoarthritis, unspecified site; M54.9 Dorsalgia, unspecified; N19 Unspecified kidney failure; K76.9 Liver disease, unspecified; K74.69 Other cirrhosis of liver; J30.9 Allergic rhinitis, unspecified
CPT/HCPCS: 36430; 86850; 86900; 86901; 86920; G0463; P9016; P9034

== ENCOUNTER → 2016-12-25 | Outpatient (REF) | payer MEDICARE ==
[~2016-12-25] MED LIST changes: -diphenhydrAMINE 25 MG CAP PO SCH
== END ==
LOC: M SFHCPLAZ 08:55
PROVIDERS: ATTEND Student in an Organized Health Care Education/Training Program
DX: D64.9 Anemia, unspecified (principal); Z53.9 Procedure and treatment not carried out, unspecified reason

== ENCOUNTER → 2016-12-26 | Outpatient (REF) | payer MEDICARE ==
[2016-12-26 16:51] LABS: MEAN CORPUSCULAR HEMOGLOBIN 31.7 pg (27.0-33.0); MEAN CORPUSCULAR HGB CONC 32.3 g/dl (32.0-36.5); RED CELL DISTRIBUTION WIDTH 20.5 % (11.5-14.5); WHITE BLOOD COUNT 3.3 10^3/uL (4.0-10.0)
[2016-12-26 17:27] LABS: POS COUNT POS FLAG
[2016-12-26 17:29] LABS: IMMATURE PLATELET FRACTION % 6.7 % (0.0-10.9); REASON FOR REVIEW COMPREHENSIVE REVIEW
[2016-12-26 17:42] LABS: ALBUMIN/GLOBULIN RATIO 0.64 (1.00-1.93); ALKALINE PHOSPHATASE 197 U/L (45-117); ALT/SGPT 38 U/L (12-78); ANION GAP 7 MEQ/L (8-16); AST/SGOT 124 U/L (7-37); BILIRUBIN,TOTAL 10.4 MG/DL (0.2-1.0); BLOOD UREA NITROGEN 17 MG/DL (7-18); CALCIUM LEVEL 10.7 MG/DL (8.5-10.1); CARBON DIOXIDE LEVEL 24 MEQ/L (21-32); CHLORIDE LEVEL 103 MEQ/L (98-107); CREATININE FOR GFR 1.11 MG/DL (0.70-1.30); GLOMERULAR FILTRATION RATE > 60.0 (>56); GLUCOSE, FASTING 190 MG/DL (70-105); POTASSIUM SERUM 4.4 MEQ/L (3.5-5.1); SODIUM LEVEL 134 MEQ/L (136-145); TOTAL PROTEIN 7.7 GM/DL (6.4-8.2)
[2016-12-26 22:09] LABS: PLATELET COUNT, AUTOMATED 17 10^3/uL (150-450)
== END ==
LOC: M SFHCPLAZ 10:33
PROVIDERS: ATTEND Family Medicine
DX: D64.9 Anemia, unspecified (principal)

== ENCOUNTER → 2016-12-28 | Outpatient (CLI) | payer MEDICARE | LOC: M LRY 15:31 | PROVIDERS: ATTEND Family Medicine | DX: D64.9 Anemia, unspecified (principal) ==

== ENCOUNTER 2017-01-05 09:18 | Emergency (ER) | payer MEDICARE ==
[~2017-01-05] VITALS: Ht 167.6 cm; Wt 84.0 kg
[2017-01-05] MEDS ORDERED: MORPHINE 30 MG TAB **MSIR PO PRN (10:45)
[2017-01-05 11:08] LABS: BASO % 0.7 % (0.0-1.0); EOS % 0.3 % (0.0-3.0); IMMATURE GRANULOCYTE % 0.7 % (0-0); LYMPH # 0.5 10^3/uL (1.5-4.5); LYMPH % 15.7 % (24.0-44.0); MEAN CORPUSCULAR HEMOGLOBIN 33.5 pg (27.0-33.0); MEAN CORPUSCULAR HGB CONC 33.3 g/dl (32.0-36.5); MEAN CORPUSCULAR VOLUME 100.4 fl (80.0-96.0); MONO # 0.3 10^3/uL (0.0-0.8); MONO % 10.9 % (0.0-5.0); NEUTROPHILS # 2.1 10^3/uL (1.8-7.7); NEUTROPHILS % 71.7 % (36.0-66.0); RED CELL DISTRIBUTION WIDTH 20.9 % (11.5-14.5); WHITE BLOOD COUNT 2.9 10^3/uL (4.0-10.0)
[2017-01-05 11:11] LABS: PLATELET COUNT, AUTOMATED 23 10^3/uL (150-450); POS COUNT POS FLAG
[2017-01-05 11:16] LABS: IMMATURE PLATELET FRACTION % 3.4 % (0.0-10.9)
[2017-01-05 11:23] LABS: ANION GAP 11 MEQ/L (8-16); BLOOD UREA NITROGEN 17 MG/DL (7-18); CALCIUM LEVEL 10.4 MG/DL (8.5-10.1); CARBON DIOXIDE LEVEL 20 MEQ/L (21-32); CHLORIDE LEVEL 105 MEQ/L (98-107); CREATININE FOR GFR 1.25 MG/DL (0.70-1.30); GLOMERULAR FILTRATION RATE > 60.0 (>56); GLUCOSE, FASTING 184 MG/DL (70-105); INR 1.36; POTASSIUM SERUM 3.6 MEQ/L (3.5-5.1); SODIUM LEVEL 136 MEQ/L (136-145)
[2017-01-05 12:35] VITALS: BP 168/88
[2017-01-06] MEDS ORDERED: SPIR100T PO (22:21)
== END 2017-01-05 12:36 | disposition home or self-care (01) ==
LOC: M ED 09:18 → EDBD 09:18 → M ED 12:36
DX: R04.0 Epistaxis (principal); D64.9 Anemia, unspecified; D69.6 Thrombocytopenia, unspecified; K70.30 Alcoholic cirrhosis of liver without ascites; E11.9 Type 2 diabetes mellitus without complications; J30.2 Other seasonal allergic rhinitis; K21.9 Gastro-esophageal reflux disease without esophagitis; Z79.84 Long term (current) use of oral hypoglycemic drugs; Z79.899 Other long term (current) drug therapy

== ENCOUNTER 2017-01-06 18:11 | Inpatient (IN) | payer MEDICARE ==
[~2017-01-06] VITALS: Ht 167.6 cm; Wt 84.3 kg
--- NOTE | 2017-01-06 19:25 | REP ---
Clinical: Trauma. Fall. Findings: Mild atrophy is appreciated. The ventricles and sulci are symmetric. Delgado-white differentiation is maintained. There is no evidence for acute intracranial hemorrhage, mass/mass effect, pathology or trauma/injury. No extra-axial fluid collection. Calvarium is intact. Paranasal sinuses demonstrate mixed fluid and gas consistent with maxillofacial trauma. A small scalp hematoma/contusion overlies the midline frontal bones. Impression: 1. Mild atrophy. No acute intracranial pathology or trauma/injury. 2. Mixed fluid and gas throughout the sinuses consistent with facial trauma. 3. Small scalp contusion/hematoma overlies the midline frontal bones. Signed by Sadi Uriarte MD 01/06/2017 07:17 P
[2017-01-06] MEDS ORDERED: ONDANSETRON 4MG/2ML VIAL (J2405) IV ONE (19:30)
--- NOTE | 2017-01-06 19:38 | REP ---
Clinical: Trauma. Fall. Technique: Axial noncontrast images through the facial bones to include the entire mandible with coronal and sagittal re-formations. Findings: Comminuted bilateral nasal bone fractures are identified with fracture fragments demonstrating mild maximal displacement of approximately 2.3 mm. Fracture of the nasal septum is also appreciated and fractures of the struts through multiple ethmoid air cells cannot be excluded as well. The bilateral orbits are intact and without pathology or trauma in the orbital barr remain intact. Very subtle nondisplaced fracture involving the posterior aspect of the medial wall of the left maxillary sinus and lamina papyracea cannot definitively be excluded. The bilateral zygomatic arches, temporomandibular joints and mandible are intact. The maxilla appears intact. Mixed hemorrhage/fluid and gas is noted throughout the ethmoid, sphenoid, maxillary sinuses and visualized nasopharynx. Soft tissue traumatic swelling and contusions overly the nasal bones as well as a area of contusion and hematoma overlying the midline frontal bones appreciated. Impression: 1. Comminuted fractures with minimal displacement involving the bilateral nasal bones and nasal septum. Subtle associated fractures of the ethmoid air struts, left lamina papyracea and posterior aspect of the medial wall left maxillary sinus cannot definitively be excluded. 2. Overlying traumatic swelling and infiltration over the midline face overlying the nose as well as swelling and scalp contusion overlying the midline frontal bone. Signed by Sadi Uriarte MD 01/06/2017 07:30 P
[2017-01-06 19:50] LABS: BASO # 0.1 10^3/uL (0.0-0.2); BASO % 0.9 % (0.0-1.0); IMMATURE GRANULOCYTE % 0.5 % (0-0); LYMPH # 0.5 10^3/uL (1.5-4.5); LYMPH % 8.6 % (24.0-44.0); MEAN CORPUSCULAR HEMOGLOBIN 34.4 pg (27.0-33.0); MEAN CORPUSCULAR HGB CONC 33.5 g/dl (32.0-36.5); MEAN CORPUSCULAR VOLUME 102.7 fl (80.0-96.0); MONO # 0.5 10^3/uL (0.0-0.8); MONO % 8.8 % (0.0-5.0); NEUTROPHILS # 4.6 10^3/uL (1.8-7.7); NEUTROPHILS % 81.2 % (36.0-66.0); RED CELL DISTRIBUTION WIDTH 21.3 % (11.5-14.5); WHITE BLOOD COUNT 5.6 10^3/uL (4.0-10.0)
[2017-01-06 19:51] LABS: PLATELET COUNT, AUTOMATED 40 10^3/uL (150-450)
[2017-01-06 19:53] LABS: IMMATURE PLATELET FRACTION % 3.2 % (0.0-10.9)
[2017-01-06 20:01] LABS: INR 1.49
[2017-01-06 20:20] LABS: ALBUMIN 2.5 GM/DL (3.2-5.2); ALBUMIN/GLOBULIN RATIO 0.61 (1.00-1.93); BILIRUBIN,DIRECT 10.4 MG/DL (0.0-0.2); BILIRUBIN,TOTAL 14.4 MG/DL (0.2-1.0); CREATININE FOR GFR 1.7 MG/DL (0.70-1.30); GLOMERULAR FILTRATION RATE 45.5 (>56); POTASSIUM SERUM 3.6 MEQ/L (3.5-5.1); TOTAL PROTEIN 6.6 GM/DL (6.4-8.2)
[2017-01-06] MEDS ORDERED: LANSOPRAZOLE SUSPENSION 30 MG/10 ML ORAL SYRINGE (FIRST-LANSOPRAZOLE) PO SCH (21:00)
[2017-01-06] MEDS ORDERED: LEVEMIR (INSULIN DETEMIR) 1 UNITS/0.01ML SC SCH (21:00)
[2017-01-06 21:05] LABS: VENOUS BASE EXCESS -5.1 (-2.0-2.0); VENOUS O2 SATURATION 99.7 % (60.0-80.0); VENOUS PARTIAL PRESSURE CO2 25.8 mmHg (38.0-50.0); VENOUS PARTIAL PRESSURE O2 222.4 mmHg (30.0-50.0); VENOUS STANDARD HCO3 20.3 MEQ/L; VENOUS TOTAL CO2 18.8 MEQ/L (24.0-28.0)
[2017-01-06] MEDS ORDERED: TETANUS/DIPHTHERIA TOX ADSORB ADULT 0.5ML SYR/VIAL (90714) IM ONE (21:45)
[2017-01-06] MEDS ORDERED: CLINDAMYCIN 600 MG in APPROPRIATE DILUENT 1 EA IV ONE (21:45)
[2017-01-06] MEDS ORDERED: SPIR100T PO (22:21)
[2017-01-06] MEDS ORDERED: FEXOFENADINE 60 MG TAB PO PRN (22:30)
[2017-01-06] MEDS ORDERED: CALCIUM CARBONATE 500 MG CHEW U/D PO PRN (22:30)
[2017-01-06] MEDS ORDERED: AZELASTINE 137MCG NASAL SPY 30 ML (ASTELIN) PRN (22:30)
[2017-01-06] MEDS: SPIRONOLACTONE 50 MG TAB PO SCH (23:30)
[2017-01-06] MEDS: NADOLOL 20MG TABLET PO SCH (23:30)
[2017-01-06] MEDS: FUROSEMIDE 40 MG TAB PO SCH (23:30)
[2017-01-06] MEDS: SUCRALFATE SUSP 1GM/10ML UD PO SCH (23:30)
[2017-01-07] VITALS (11 sets, daily range): BP systolic 100–115; BP diastolic 51–59
--- NOTE | 2017-01-07 01:47 | HPE ---
DATE OF ADMISSION: 01/06/2017 The patient, Will Monet, is a 51-year-old male. Patient comes in with chief complaint of having fallen on his face. Patient claims that the fall was mechanical in nature. Denies any lightheadedness or passing out before the fall. Patient noted that he was bleeding from his nose and hit himself pretty hard, so he came to the emergency department (ED). While in the ED, patient had imaging which showed head CT of mild atrophy, no acute intracranial pathology or trauma injury, mixed fluid and gas throughout the sinuses consistent with facial trauma, small scalp contusion, hematoma overlies the midline frontal bones. Maxillofacial CT which shows comminuted fractures with minimal displacement involving the bilateral nasal bones and nasal septum. Subtle associated fractures of the ethmoid air struts, left lamina papyracea and posterior aspect of the medial wall left maxillary sinus cannot be definitively excluded. Overlying traumatic swelling and infiltration midline face overlying the nose, as well as swelling, scalp contusion overlying the midfrontal bone. Otolaryngology (ENT) contacted, will see the patient in the morning. Request admission to medicine. Patient being admitted to medical service. PREVIOUS MEDICAL HISTORY: 1. Anemia secondary to previous gastrointestinal (GI) bleed. 2. History of acute renal injury. 3. Ethyl alcohol (EtOH), continues to drink, alcoholic cirrhosis. 4. Thrombocytopenia. 5. Type 2 diabetes mellitus. 6. History of gastroesophageal reflux disease (GERD). 7. Asthma. 8. Hypercholesterolemia. 9. Colon adenomas. 10. Mild varices. 11. End-stage liver disease. Patient denies any known drug allergies, only environmental allergies. Denies significant family history. PHYSICAL EXAMINATION: Patient is extremely jaundiced on presentation. Significant swelling on the face. Bleeding from the nose. Patient alert and oriented times three. Normal affect, normal mood. Patient has significant scleral icterus. S1, S2. No apparent wheezes or rales, however, patient not taking deep breaths. Abdomen is soft. No rigidity. No tenderness at this time. Patient able to move all four extremities. Patient's face in significant pain. Cranial nerve exam limited at this time. Vital signs on admission: Temperature 97.2, pulse 121, respiratory rate 20, blood pressure 116/61, pulse oximetry is 96% on room air. LABORATORY RESULTS: Show hemoglobin and hematocrit 7.7/23.0, platelet count low at 40. Blood gas VBG pH 7.461, pCO2 25.8, VBG pO2 222.4. Patient obviously on oxygen supplementation. Bicarbonate 18.0, total CO2 is 18.8, oxygen saturation 99.7. Patient's ethyl alcohol level is 0.014. Coagulation: PT 18.4, INR 1.49, aPTT 37.9. IMAGING: As noted in history of present illness (HPI). ASSESSMENT AND PLAN: Patient is a 51-year-old male status post significant maxillofacial fractures, also being admitted for multiple medical comorbidities including active bleed with anemia. Patient receiving one packed red blood cells (PRBCs) and platelets in the emergency department (ED). Orders placed for followup complete blood count (CBC) checks every six. First to take place after transfusions are complete. Continue patient's home medications excepting nasal sprays at this time given patient's inability to use the use the nasal sprays given the fractures. Otolaryngology (ENT) to see patient in the morning. No specific recommendations other than were noted above. For asthma, patient not currently on DuoNebs, will give DuoNebs as needed. Deep venous thrombosis (DVT) prophylaxis. Patient is actively bleeding, anemic with low platelets. Sequential compression devices (SCDs) only at this time. Gastrointestinal (GI) prophylaxis/gastroesophageal reflux disease (GERD). Continue proton pump inhibitors (PPIs). Fluid overload management. Continue patient's home medications. Given the significant trauma to the face, the anemia, the requirement for transfusion and evaluation by ENT, I expect this admission to be greater than two midnights. I initially saw patient 01/06/2017. Patient to be monitored in progressive care unit (PCU) unless followup imaging warrants upgrade to intensive care unit (ICU). At this time, however, patient is stable enough for PCU management.
[2017-01-07] MEDS: MULTIVITAMINS/MINERALS THERAP 1 TAB PO SCH ×2 (02:03→08:45)
[2017-01-07] MEDS: SUCRALFATE SUSP 1GM/10ML UD PO SCH (02:03)
[2017-01-07] MEDS: VITAMIN D 1,000 INTERNATIONAL UNITS TABLET PO SCH (02:03)
[2017-01-07] MEDS: CHLORHEXIDINE ORAL RINSE 0.12%/15ML 120ML BOTTLE MT SCH ×3 (02:09→21:00)
[2017-01-07] MEDS ORDERED: DEXTROSE 50% 50 ML SYRINGE IV PRN (02:45)
[2017-01-07] MEDS ORDERED: GLUCAGON FOR INJ 1 MG VIAL (J1610) SC PRN (02:45)
[2017-01-07] MEDS ORDERED: GLUCOSE 4 GM CHEW TABLET PO PRN (02:45)
[2017-01-07 06:31] LABS: BASO % 0.6 % (0.0-1.0); IMMATURE GRANULOCYTE % 0.4 % (0-0); LYMPH # 0.5 10^3/uL (1.5-4.5); LYMPH % 11.3 % (24.0-44.0); MEAN CORPUSCULAR HEMOGLOBIN 33.3 pg (27.0-33.0); MEAN CORPUSCULAR HGB CONC 33.7 g/dl (32.0-36.5); MONO # 0.6 10^3/uL (0.0-0.8); MONO % 12.8 % (0.0-5.0); NEUTROPHILS # 3.6 10^3/uL (1.8-7.7); NEUTROPHILS % 74.9 % (36.0-66.0); WHITE BLOOD COUNT 4.8 10^3/uL (4.0-10.0)
[2017-01-07] MEDS: NS 1,000 ML IV SCH ×2 (06:31→22:54)
[2017-01-07] MEDS: HumaLOG INSULIN (NovoLOG) PER UNIT SC SCH ×4 (06:34→17:48)
[2017-01-07 06:35] LABS: PLATELET COUNT, AUTOMATED 48 10^3/uL (150-450)
[2017-01-07 06:42] LABS: INR 1.59
[2017-01-07 07:04] LABS: ALBUMIN 2.4 GM/DL (3.2-5.2); ALBUMIN/GLOBULIN RATIO 0.73 (1.00-1.93); BILIRUBIN,TOTAL 12.4 MG/DL (0.2-1.0); CALCIUM LEVEL 9.2 MG/DL (8.5-10.1); CREATININE FOR GFR 1.96 MG/DL (0.70-1.30); GLOMERULAR FILTRATION RATE 38.6 (>56); MAGNESIUM LEVEL 1.1 MG/DL (1.8-2.4); POTASSIUM SERUM 3.3 MEQ/L (3.5-5.1); TOTAL PROTEIN 5.7 GM/DL (6.4-8.2)
[2017-01-07] MEDS: SPIRONOLACTONE 50 MG TAB PO SCH ×2 (08:45→21:00)
[2017-01-07] MEDS: THIAMINE 100 MG TAB PO SCH (08:45)
[2017-01-07] MEDS: FOLIC ACID 1 MG TAB PO SCH (08:45)
[2017-01-07] MEDS ORDERED: MAG SULF 1GM/100ML (MAG RUN) 1 GM in APPROPRIATE DILUENT 1 EA IV ONE (09:00)
[2017-01-07] MEDS ORDERED: LEVEMIR (INSULIN DETEMIR) 1 UNITS/0.01ML SC SCH ×4 (09:00→21:00)
[2017-01-07] MEDS ORDERED: POTASSIUM BICARBONATE 25 MEQ TAB PO ONE (10:00)
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
[2017-01-07 12:08] LABS: ALBUMIN 2.3 GM/DL (3.2-5.2); ALBUMIN/GLOBULIN RATIO 0.66 (1.00-1.93); BILIRUBIN,TOTAL 11.8 MG/DL (0.2-1.0); CALCIUM LEVEL 9.5 MG/DL (8.5-10.1); CREATININE FOR GFR 1.92 MG/DL (0.70-1.30); GLOMERULAR FILTRATION RATE 39.5 (>56); POTASSIUM SERUM 4.1 MEQ/L (3.5-5.1); TOTAL PROTEIN 5.8 GM/DL (6.4-8.2)
[2017-01-07 18:14] LABS: MEAN CORPUSCULAR HEMOGLOBIN 33.8 pg (27.0-33.0); MEAN CORPUSCULAR HGB CONC 34.4 g/dl (32.0-36.5); MEAN CORPUSCULAR VOLUME 98.3 fl (80.0-96.0); RED CELL DISTRIBUTION WIDTH 22.1 % (11.5-14.5); WHITE BLOOD COUNT 4.8 10^3/uL (4.0-10.0)
[2017-01-07 18:18] LABS: PLATELET COUNT, AUTOMATED 44 10^3/uL (150-450)
[2017-01-07 18:41] LABS: ALBUMIN 2.3 GM/DL (3.2-5.2); ALBUMIN/GLOBULIN RATIO 0.72 (1.00-1.93); BILIRUBIN,TOTAL 11.2 MG/DL (0.2-1.0); CALCIUM LEVEL 9.2 MG/DL (8.5-10.1); CREATININE FOR GFR 1.87 MG/DL (0.70-1.30); GLOMERULAR FILTRATION RATE 40.7 (>56); POTASSIUM SERUM 3.8 MEQ/L (3.5-5.1); TOTAL PROTEIN 5.5 GM/DL (6.4-8.2)
[2017-01-07] MEDS: FUROSEMIDE 40 MG TAB PO SCH (21:00)
[2017-01-07] MEDS: NADOLOL 20MG TABLET PO SCH (21:00)
[2017-01-07] MEDS ORDERED: PANTOPRAZOLE 40MG TAB (PROTONIX) PO SCH (21:00)
[2017-01-07] MEDS: PANTOPRAZOLE 40MG INJ (PROTONIX) (C9113) IV SCH (22:59)
[2017-01-07 23:16] LABS: INR 1.55
[2017-01-07 23:22] LABS: ALBUMIN 2.3 GM/DL (3.2-5.2); ALBUMIN/GLOBULIN RATIO 0.61 (1.00-1.93); BILIRUBIN,TOTAL 11.6 MG/DL (0.2-1.0); CALCIUM LEVEL 9.2 MG/DL (8.5-10.1); CREATININE FOR GFR 1.9 MG/DL (0.70-1.30); POTASSIUM SERUM 3.8 MEQ/L (3.5-5.1); TOTAL PROTEIN 6.1 GM/DL (6.4-8.2)
[2017-01-08] VITALS (7 sets, daily range): BP systolic 100–115; BP diastolic 48–73
[2017-01-08] MEDS: SUCRALFATE SUSP 1GM/10ML UD PO SCH ×2 (00:46→20:19)
[2017-01-08] MEDS: MULTIVITAMINS/MINERALS THERAP 1 TAB PO SCH ×2 (00:46→20:19)
[2017-01-08] MEDS: VITAMIN D 1,000 INTERNATIONAL UNITS TABLET PO SCH ×2 (00:47→20:19)
[2017-01-08] MEDS: HumaLOG INSULIN (NovoLOG) PER UNIT SC SCH ×4 (06:00→18:40)
[2017-01-08 06:09] LABS: MEAN CORPUSCULAR HEMOGLOBIN 33.1 pg (27.0-33.0); MEAN CORPUSCULAR HGB CONC 33.2 g/dl (32.0-36.5); MEAN CORPUSCULAR VOLUME 99.6 fl (80.0-96.0); RED CELL DISTRIBUTION WIDTH 23.6 % (11.5-14.5); WHITE BLOOD COUNT 4.9 10^3/uL (4.0-10.0)
[2017-01-08 06:10] LABS: PLATELET COUNT, AUTOMATED 66 10^3/uL (150-450)
[2017-01-08 06:11] LABS: IMMATURE PLATELET FRACTION % 5.4 % (0.0-10.9)
[2017-01-08 06:32] LABS: ALBUMIN 2.5 GM/DL (3.2-5.2); ALBUMIN/GLOBULIN RATIO 0.6 (1.00-1.93); BILIRUBIN,TOTAL 12.6 MG/DL (0.2-1.0); CALCIUM LEVEL 9.6 MG/DL (8.5-10.1); CREATININE FOR GFR 1.9 MG/DL (0.70-1.30); POTASSIUM SERUM 3.7 MEQ/L (3.5-5.1); TOTAL PROTEIN 6.7 GM/DL (6.4-8.2)
[2017-01-08] MEDS: SPIRONOLACTONE 50 MG TAB PO SCH ×2 (08:43→20:20)
[2017-01-08] MEDS: CHLORHEXIDINE ORAL RINSE 0.12%/15ML 120ML BOTTLE MT SCH ×2 (08:43→20:20)
[2017-01-08] MEDS: FOLIC ACID 1 MG TAB PO SCH (08:43)
[2017-01-08] MEDS: THIAMINE 100 MG TAB PO SCH (08:43)
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
[2017-01-08 11:07] LABS: ALBUMIN 2.6 GM/DL (3.2-5.2); ALBUMIN/GLOBULIN RATIO 0.67 (1.00-1.93); BILIRUBIN,TOTAL 13.8 MG/DL (0.2-1.0); CALCIUM LEVEL 9.3 MG/DL (8.5-10.1); CREATININE FOR GFR 1.87 MG/DL (0.70-1.30); GLOMERULAR FILTRATION RATE 40.7 (>56); MAGNESIUM LEVEL 1.5 MG/DL (1.8-2.4); PHOSPHORUS LEVEL 2.3 MG/DL (2.5-4.9); POTASSIUM SERUM 4.2 MEQ/L (3.5-5.1); TOTAL PROTEIN 6.5 GM/DL (6.4-8.2)
[2017-01-08] MEDS: NS 1,000 ML IV SCH (11:26)
[2017-01-08] MEDS: PANTOPRAZOLE 40MG INJ (PROTONIX) (C9113) IV SCH (20:19)
[2017-01-08] MEDS: NADOLOL 20MG TABLET PO SCH (20:19)
[2017-01-08] MEDS: FUROSEMIDE 40 MG TAB PO SCH (20:19)
[2017-01-08 23:17] LABS: INR 1.6
[2017-01-09] MEDS: NS 1,000 ML IV SCH (01:09)
[2017-01-09 06:00] VITALS: BP 109/53
[2017-01-09] MEDS: HumaLOG INSULIN (NovoLOG) PER UNIT SC SCH ×5 (06:00→20:32)
[2017-01-09 06:23] LABS: MEAN CORPUSCULAR HEMOGLOBIN 33.8 pg (27.0-33.0); MEAN CORPUSCULAR HGB CONC 33.8 g/dl (32.0-36.5); RED CELL DISTRIBUTION WIDTH 22.8 % (11.5-14.5)
[2017-01-09 06:25] LABS: PLATELET COUNT, AUTOMATED 37 10^3/uL (150-450)
[2017-01-09 06:44] LABS: ALBUMIN 2.2 GM/DL (3.2-5.2); ALBUMIN/GLOBULIN RATIO 0.61 (1.00-1.93); BILIRUBIN,TOTAL 10.8 MG/DL (0.2-1.0); CALCIUM LEVEL 9.4 MG/DL (8.5-10.1); CREATININE FOR GFR 1.9 MG/DL (0.70-1.30); POTASSIUM SERUM 3.4 MEQ/L (3.5-5.1); TOTAL PROTEIN 5.8 GM/DL (6.4-8.2)
[2017-01-09 09:00] VITALS: BP 113/56
[2017-01-09] MEDS: CHLORHEXIDINE ORAL RINSE 0.12%/15ML 120ML BOTTLE MT SCH ×2 (09:00→20:53)
[2017-01-09] MEDS ORDERED: MAG SULF 1GM/100ML (MAG RUN) 1 GM in APPROPRIATE DILUENT 1 EA IV ONE (09:30)
[2017-01-09] MEDS: SPIRONOLACTONE 50 MG TAB PO SCH ×2 (10:19→20:50)
[2017-01-09] MEDS: FOLIC ACID 1 MG TAB PO SCH (10:19)
[2017-01-09] MEDS: THIAMINE 100 MG TAB PO SCH (10:19)
[2017-01-09] MEDS ORDERED: POTASSIUM PHOSPHATE INJ 18 MMOL in D5W 250 ML IV ONE (11:00)
[2017-01-09 12:31] LABS: MEAN CORPUSCULAR HEMOGLOBIN 33.3 pg (27.0-33.0); MEAN CORPUSCULAR HGB CONC 33.6 g/dl (32.0-36.5); MEAN CORPUSCULAR VOLUME 99.2 fl (80.0-96.0); WHITE BLOOD COUNT 3.6 10^3/uL (4.0-10.0)
[2017-01-09 12:35] LABS: PLATELET COUNT, AUTOMATED 51 10^3/uL (150-450)
[2017-01-09 14:00] VITALS: BP 146/67
[2017-01-09 19:04] LABS: MEAN CORPUSCULAR HEMOGLOBIN 33.5 pg (27.0-33.0); MEAN CORPUSCULAR HGB CONC 33.3 g/dl (32.0-36.5); MEAN CORPUSCULAR VOLUME 100.4 fl (80.0-96.0); RED CELL DISTRIBUTION WIDTH 23.3 % (11.5-14.5); WHITE BLOOD COUNT 4.6 10^3/uL (4.0-10.0)
[2017-01-09 19:08] LABS: PLATELET COUNT, AUTOMATED 61 10^3/uL (150-450)
[2017-01-09] MEDS ORDERED: GLUCAGON FOR INJ 1 MG VIAL (J1610) SC PRN (19:30)
[2017-01-09] MEDS ORDERED: GLUCOSE 4 GM CHEW TABLET PO PRN (19:30)
[2017-01-09] MEDS ORDERED: DEXTROSE 50% 50 ML SYRINGE IV PRN (19:30)
[2017-01-09 20:01] VITALS: BP 115/63
[2017-01-09] MEDS ORDERED: POTASSIUM CHLORIDE 10 MEQ SR TABLET PO ONE (20:15)
[2017-01-09] MEDS: FUROSEMIDE 40 MG TAB PO SCH (20:50)
[2017-01-09] MEDS: MULTIVITAMINS/MINERALS THERAP 1 TAB PO SCH (20:50)
[2017-01-09] MEDS: NADOLOL 20MG TABLET PO SCH (20:51)
[2017-01-09] MEDS: SUCRALFATE SUSP 1GM/10ML UD PO SCH (20:52)
[2017-01-09] MEDS: VITAMIN D 1,000 INTERNATIONAL UNITS TABLET PO SCH (20:52)
[2017-01-09] MEDS: PANTOPRAZOLE 40MG INJ (PROTONIX) (C9113) IV SCH (20:52)
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
[2017-01-09 22:00] VITALS: BP 115/63
[2017-01-10] VITALS (9 sets, daily range): BP systolic 115–140; BP diastolic 59–70
[2017-01-10 06:58] LABS: MEAN CORPUSCULAR HEMOGLOBIN 32.6 pg (27.0-33.0); MEAN CORPUSCULAR HGB CONC 32.7 g/dl (32.0-36.5); MEAN CORPUSCULAR VOLUME 99.6 fl (80.0-96.0); RED CELL DISTRIBUTION WIDTH 23.2 % (11.5-14.5); WHITE BLOOD COUNT 3.4 10^3/uL (4.0-10.0)
[2017-01-10 07:01] LABS: PLATELET COUNT, AUTOMATED 47 10^3/uL (150-450)
[2017-01-10 07:03] LABS: IMMATURE PLATELET FRACTION % 3.9 % (0.0-10.9)
[2017-01-10 07:18] LABS: ALBUMIN 2.4 GM/DL (3.2-5.2); ALBUMIN/GLOBULIN RATIO 0.55 (1.00-1.93); BILIRUBIN,TOTAL 10.3 MG/DL (0.2-1.0); CALCIUM LEVEL 10.3 MG/DL (8.5-10.1); CREATININE FOR GFR 1.66 MG/DL (0.70-1.30); GLOMERULAR FILTRATION RATE 46.7 (>56); MAGNESIUM LEVEL 1.2 MG/DL (1.8-2.4); POTASSIUM SERUM 4.1 MEQ/L (3.5-5.1); TOTAL PROTEIN 6.8 GM/DL (6.4-8.2)
[2017-01-10] MEDS: MAG SULF 1GM/100ML (MAG RUN) 1 GM in APPROPRIATE DILUENT 1 EA IV SCH ×3 (08:48→10:05)
[2017-01-10] MEDS: THIAMINE 100 MG TAB PO SCH (09:44)
[2017-01-10] MEDS: SPIRONOLACTONE 50 MG TAB PO SCH ×2 (09:44→21:15)
[2017-01-10] MEDS: FOLIC ACID 1 MG TAB PO SCH (09:44)
[2017-01-10] MEDS: CHLORHEXIDINE ORAL RINSE 0.12%/15ML 120ML BOTTLE MT SCH ×2 (09:44→21:17)
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
[2017-01-10] MEDS: HumaLOG INSULIN (NovoLOG) PER UNIT SC SCH ×4 (10:05→21:17)
[2017-01-10 11:03] LABS: VITAMIN B12 LEVEL > 2000 PG/ML (247-911)
[2017-01-10 11:04] LABS: FOLATE 16.4 NG/ML (>5.4)
[2017-01-10] MEDS: FUROSEMIDE 40 MG TAB PO SCH (21:00)
[2017-01-10] MEDS: MULTIVITAMINS/MINERALS THERAP 1 TAB PO SCH (21:15)
[2017-01-10] MEDS: VITAMIN D 1,000 INTERNATIONAL UNITS TABLET PO SCH (21:16)
[2017-01-10] MEDS: SUCRALFATE SUSP 1GM/10ML UD PO SCH (21:16)
[2017-01-10] MEDS: NADOLOL 20MG TABLET PO SCH (21:16)
[2017-01-11 06:00] VITALS: BP 122/57
[2017-01-11 06:59] LABS: MEAN CORPUSCULAR HEMOGLOBIN 33.2 pg (27.0-33.0); MEAN CORPUSCULAR HGB CONC 32.9 g/dl (32.0-36.5); MEAN CORPUSCULAR VOLUME 100.8 fl (80.0-96.0); RED CELL DISTRIBUTION WIDTH 22.5 % (11.5-14.5); WHITE BLOOD COUNT 2.6 10^3/uL (4.0-10.0)
[2017-01-11 07:15] LABS: ALBUMIN 2.2 GM/DL (3.2-5.2); ALBUMIN/GLOBULIN RATIO 0.54 (1.00-1.93); BILIRUBIN,TOTAL 9.5 MG/DL (0.2-1.0); CALCIUM LEVEL 10.1 MG/DL (8.5-10.1); CREATININE FOR GFR 1.46 MG/DL (0.70-1.30); GLOMERULAR FILTRATION RATE 54.2 (>56); MAGNESIUM LEVEL 1.4 MG/DL (1.8-2.4); POTASSIUM SERUM 3.8 MEQ/L (3.5-5.1); TOTAL PROTEIN 6.3 GM/DL (6.4-8.2)
[2017-01-11 07:19] LABS: PLATELET COUNT, AUTOMATED 35 10^3/uL (150-450)
[2017-01-11 07:20] LABS: IMMATURE PLATELET FRACTION % 4.2 % (0.0-10.9)
[2017-01-11] MEDS ORDERED: MAGNESIUM OXIDE 400 MG TAB (MAG-OX) PO ONE (08:00)
[2017-01-11] MEDS: FOLIC ACID 1 MG TAB PO SCH (08:52)
[2017-01-11] MEDS: THIAMINE 100 MG TAB PO SCH (08:52)
[2017-01-11] MEDS: SPIRONOLACTONE 50 MG TAB PO SCH (08:52)
[2017-01-11] MEDS: CHLORHEXIDINE ORAL RINSE 0.12%/15ML 120ML BOTTLE MT SCH (08:53)
[2017-01-11] MEDS: HumaLOG INSULIN (NovoLOG) PER UNIT SC SCH ×2 (08:54→12:35)
[2017-01-11 09:00] VITALS: BP 122/52
[2017-01-11] MEDS ORDERED: THIA100TA PO (09:39)
[2017-01-11] MEDS ORDERED: FOLI1TAB4 PO (09:39)
[2017-01-11] MEDS ORDERED: MAG400TA PO (09:46)
--- NOTE | 2017-01-11 10:01 | DS.PDOC ---
Discharge Summary General Date of Admission Jan 06, 2017 at 22:24 Date of Discharge 01/10/17 Primary Care Physician: HARVINDER PINK MD Attending Physician: BRANDO GARCES MD Specialist/Consultants Involve: CAMILLE REN MD Discharge Summary PROCEDURES PERFORMED DURING STAY: None ADMITTING DIAGNOSES: 1. bleed from mechanical fall 2. JAKE DISCHARGE DIAGNOSES: 1. nasal bone fractures & frontal hematoma 2. End Stage Liver Disease 2/2 Alcoholic Cirrhosis 3. Anemia 2/2 ESDL 4. Thrombocytopenia 2/2 ESLD 5. Alcohol abuse 6. Type 2 diabetes mellitus 7. GERD 8. Asthma. 9. Hypercholesterolemia 10. HTN 11. hx variceal bleeds (s/p banding + portal HTN & HTN gastrotomy), 05/2016 EGD 12. hx spontaneous bacterial endocarditis COMPLICATIONS/CHIEF COMPLAINT: Nasal Bone Fractures. HISTORY OF PRESENT ILLNESS: Pt presented to ED after falling over a step in his garage in the dark, denied presyncopal symptoms and LOC. Admitted to coughing and vomiting blood immediately after the fall. Denied vision changes or difficulty breathing, shortness of breath, chest pain, slurred speech. Pt has history of pancytopenia 2/2 alcoholic cirrhosis. EtOH level on admission was 0.014. He presented with severe bruising haroldo-orbitally and haroldo-nasally, edematous eyelids bilaterally, vision intact, dry blood on mid-forehead and nose. In ED, H&H were 7.0/20.8 and platelets 40, and he was transfused 2 U PRBC and 1 unit platelets. HOSPITAL COURSE: Pt had JAKE on admission, resolved with volume repletion with IV fluids and transfusions. Maxillofacial CT revealed comminuted fractures along b/l nasal bones & septum, and contusion along frontal bone. ENT was consulted, and Dr. Ren recommended outpatient followup as no surgical intervention was necessary acutely. Pt was stable throughout stay and cleared physical therapy. He felt better, tolerated diet, and had no chest pain or respiratory distress or vision changes throughout stay. Pt was instructed to f/ u with PCP in 3-5 days and ENT within the week. DISCHARGE MEDICATIONS: Please see below. ALLERGIES: Please see below. PHYSICAL EXAMINATION ON DISCHARGE: VITAL SIGNS: Please see below. GENERAL: NAD, A&Ox3 HEENT: EOMI, sclera icteric, bruising encircling both eyes, spread more caudally around nose and cheeks, edematous eyelids bilaterally, vision intact, tongue midline, dry blood on mid-forehead and nose. No active bleeding currently. Conjunctival hemorrhage present b/l, no airway edema NECK: supple, no adenopathy CARDIOVASCULAR EXAMINATION: RRR, systolic murmur on left sternal border RESPIRATORY EXAMINATION: CTAB, good air movement ABDOMINAL EXAMINATION: soft, NT, ND EXTREMITIES: no edema, clubbing, cyanosis, tenderness SKIN: small petechia on b/l UE & chest, pt states is chronic. Jaundice NEUROLOGICAL EXAMINATION: no motor or sensory deficit PSYCHIATRIC EXAMINATION: normal mood, flat affect LABORATORY DATA: Please see below. IMAGING: * 01/[address]: Mild atrophy. No acute intracranial pathology or trauma/ injury. Mixed fluid and gas throughout the sinuses consistent with facial trauma. Small scalp contusion/hematoma overlies the midline frontal bones. * 01/[address]: Comminuted fractures with minimal displacement involving the bilateral nasal bones and nasal septum. Subtle associated fractures of the ethmoid air struts, left lamina papyracea and posterior aspect of the medial wall left maxillary sinus cannot definitively be excluded. Overlying traumatic swelling and infiltration over the midline face overlying the nose as well as swelling and scalp contusion overlying the midline frontal bone. PROGNOSIS: fair ACTIVITY: As tolerated DIET: low fat DISPOSITION: home DISCHARGE INSTRUCTIONS: 1. F/u with PCP in 3-5 days 2. F/u with Ear, Nose, Throat (ENT) within 1 week 3. Return to ED for emergency DISCHARGE CONDITION: Stable TIME SPENT ON DISCHARGE: Greater than 40 minutes. Vital Signs/I&Os Vital Signs Date Time Temp Pulse Resp B/P (MAP) Pulse Ox O2 Delivery O2 Flow Rate FiO2 01/10/17 06:00 98.2 65 18 123/63 (83) 96 Room Air Laboratory Data Labs 24H Laboratory Tests 2 01/09/17 12:12: Bedside Glucose (Misc Panel) 200H 01/09/17 12:14: Nucleated Red Blood Cells % (auto) 0.0 01/09/17 18:53: Nucleated Red Blood Cells % (auto) 0.4H 01/09/17 20:15: Bedside Glucose (Misc Panel) 163H 01/10/17 06:21: Nucleated Red Blood Cells % (auto) 0.0, Immature Platelet Fraction 3.9, Anion Gap 9, Glomerular Filtration Rate 46.7L, Blood Urea Nitrogen 23H, Creatinine 1.66H, Sodium Level 136, Potassium Level 4.1#, Chloride Level 102, Carbon Dioxide Level 25, Calcium Level 10.3H, Phosphorus Level 3.0#, Aspartate Amino Transf (AST/SGOT) 109H, Alanine Aminotransferase (ALT/SGPT) 50, Alkaline Phosphatase 173H, Total Bilirubin 10.3H, Total Protein 6.8, Albumin 2.4L, Magnesium Level 1.2L, Albumin/Globulin Ratio 0.55L CBC/BMP Laboratory Tests 01/09/17 12:14 Red Blood Count 2.55 L, Mean Corpuscular Volume 99.2 H, Mean Corpuscular Hemoglobin 33.3 H, Mean Corpuscular Hemoglobin Concent 33.6, Red Cell Distribution Width 23.0 H 01/09/17 18:53 Red Blood Count 2.69 L, Mean Corpuscular Volume 100.4 H, Mean Corpuscular Hemoglobin 33.5 H, Mean Corpuscular Hemoglobin Concent 33.3, Red Cell Distribution Width 23.3 H 01/10/17 06:21 Red Blood Count 2.73 L, Mean Corpuscular Volume 99.6 H, Mean Corpuscular Hemoglobin 32.6, Mean Corpuscular Hemoglobin Concent 32.7, Red Cell Distribution Width 23.2 H, Calcium Level 10.3 H, Phosphorus Level 3.0 #, Aspartate Amino Transf (AST/SGOT) 109 H, Alanine Aminotransferase (ALT/SGPT) 50 , Alkaline Phosphatase 173 H, Total Bilirubin 10.3 H, Total Protein 6.8, Albumin 2.4 L FSBS Laboratory Tests Test 01/09/17 12:12 01/09/17 20:15 Range/Units Bedside Glucose (Misc Panel) 200 163 70-105 MG/DL Microbiology Microbiology 01/07/17 Blood Culture - Preliminary, Resulted No Growth after 72 hours. All specime... 01/07/17 Blood Culture - Preliminary, Resulted No Growth after 72 hours. All specime... 01/07/17 Urine Culture - Final, Complete Discharge Medications Scheduled Cholecalciferol (Vitamin D3) 2,000 Unit Cap, 2,000 UNIT PO QHS, (Reported) Folic Acid (Folic Acid) 1 Mg Tab, 1 MG PO DAILY Furosemide (Furosemide) 40 Mg Tab, 40 MG PO QHS, (Reported) Insulin Glargine (Lantus) 1 Units/0.01 Ml Susp, 30 UNITS SC QAM, (Reported) Insulin Glargine (Lantus) 1 Units/0.01 Ml Susp, 40 UNITS SC QHS, (Reported) Magnesium Oxide (Magnesium Oxide) 400 Mg Tab, 400 MG PO BID Multivitamins *SMC STOCKED* (Thera M Plus *[facility]C STOCKED*) 1 Tab Tab, 1 TAB PO QHS , (Reported) Nadolol (Nadolol) 40 Mg Tab, 40 MG PO QHS, (Reported) Pantoprazole Sodium (Pantoprazole Sodium) 40 Mg Tab, 40 MG PO QHS, (Reported) Spironolactone (Spironolactone) 50 Mg Tab, 50 MG PO QHS, (Reported) Spironolactone (Spironolactone) 100 Mg Tab, 100 MG PO DAILY, (Reported) Sucralfate (Carafate) 1 Gm/10 Ml Maria G, 20 ML PO QHS, (Reported) Thiamine Hcl (Thiamine Hcl) 100 Mg Tab, 100 MG PO DAILY Scheduled PRN Calcium Carbonate (Tums) 500 Mg Chw, 500 MG PO DAILY PRN for INDIGESTION, ( Reported) Fexofenadine Hydrochloride (Shamika Allergy) 180 Mg Tab, 180 MG PO DAILY PRN for NASAL CONGESTION, (Reported) Allergies Coded Allergies: ENVIROMENTAL (Verified Allergy, Unknown, 09/12/11) GME ATTESTATION GME ATTESTATION My faculty preceptor for this patient encounter was physically present during the encounter and was fully available. All aspects of the patient interview, examination, medical decision making process, and medical care plan development were reviewed and approved by the faculty preceptor. The faculty preceptor is aware and concurs with the plan as stated in the body of this note and will attest to such by his/her cosignature. DARNELL HAILE DO Jan 10, 2017 08:42
== END 2017-01-11 15:10 | disposition home or self-care (01) | DRG 154 ==
LOC: M ED 18:11 → EDBD 18:11 → M ED INP 22:24 → M PCU 01-07 14:45 → M MS4PR 01-08 13:22 → M MSPAV 01-08 20:45
PROVIDERS: ADMIT Internal Medicine; ATTEND Internal Medicine
PROC: 30233N1 Transfusion of Nonautologous Red Blood Cells into Peripheral Vein, Percutaneous Approach (ICD-10-PCS; principal; 2017-01-06)
DX: S02.2XXA Fracture of nasal bones, initial encounter for closed fracture (principal); K76.7 Hepatorenal syndrome; K76.6 Portal hypertension; D69.6 Thrombocytopenia, unspecified; J45.909 Unspecified asthma, uncomplicated; E78.00 Pure hypercholesterolemia, unspecified; I10 Essential (primary) hypertension; F10.10 Alcohol abuse, uncomplicated; K21.9 Gastro-esophageal reflux disease without esophagitis; E11.9 Type 2 diabetes mellitus without complications; K70.30 Alcoholic cirrhosis of liver without ascites; W10.8XXA Fall (on) (from) other stairs and steps, initial encounter; Y92.009 Unspecified place in unspecified non-institutional (private) residence as the place of occurrence of the external cause; Z79.899 Other long term (current) drug therapy; Z79.4 Long term (current) use of insulin; E87.6 Hypokalemia; E83.39 Other disorders of phosphorus metabolism; Z91.19 Patient's noncompliance with other medical treatment and regimen

== ENCOUNTER 2017-02-19 19:29 | Observation (INO) | payer MEDICARE ==
[2017-02-19] MEDS: PHENYLEPHRINE 0.5% NASAL SPRAY 15 ML ×2 (23:06)
[2017-02-19 23:22] LABS: BASO % 0.6 % (0.0-1.0); HEMATOCRIT 25.7 % (42.0-52.0); HEMOGLOBIN 8.3 g/dl (14.0-18.0); IMMATURE GRANULOCYTE % 0.6 % (0-0); LYMPH # 0.7 10^3/uL (1.5-4.5); LYMPH % 19.9 % (24.0-44.0); MEAN CORPUSCULAR HEMOGLOBIN 31.4 pg (27.0-33.0); MEAN CORPUSCULAR HGB CONC 32.3 g/dl (32.0-36.5); MEAN CORPUSCULAR VOLUME 97.3 fl (80.0-96.0); MONO # 0.3 10^3/uL (0.0-0.8); MONO % 10.1 % (0.0-5.0); NEUTROPHILS # 2.3 10^3/uL (1.8-7.7); NEUTROPHILS % 68.8 % (36.0-66.0); RED BLOOD COUNT 2.64 10^6/uL (4.30-6.10); RED CELL DISTRIBUTION WIDTH 17.2 % (11.5-14.5); WHITE BLOOD COUNT 3.4 10^3/uL (4.0-10.0)
[2017-02-19 23:34] LABS: INR 1.37; PROTHROMBIN TIME 17.2 SECONDS (12.4-14.5)
[2017-02-19 23:35] LABS: PARTIAL THROMBOPLASTIN TIME 43.7 SECONDS (26.8-37.9)
[2017-02-19 23:40] LABS: AMMONIA 27 uMOL/L (<32)
[2017-02-19 23:42] LABS: PLATELET COUNT, AUTOMATED 27 10^3/uL (150-450); POS COUNT POS FLAG
[2017-02-19 23:44] LABS: IMMATURE PLATELET FRACTION % 3.6 % (0.0-10.9)
[2017-02-19 23:53] LABS: ALBUMIN 2.8 GM/DL (3.2-5.2); ALKALINE PHOSPHATASE 209 U/L (45-117); ALT/SGPT 28 U/L (12-78); ANION GAP 9 MEQ/L (8-16); AST/SGOT 77 U/L (7-37); BILIRUBIN,DIRECT 4.6 MG/DL (0.0-0.2); BILIRUBIN,TOTAL 6.2 MG/DL (0.2-1.0); BLOOD UREA NITROGEN 15 MG/DL (7-18); CALCIUM LEVEL 10.2 MG/DL (8.5-10.1); CARBON DIOXIDE LEVEL 23 MEQ/L (21-32); CHLORIDE LEVEL 104 MEQ/L (98-107); CREATININE FOR GFR 1.11 MG/DL (0.70-1.30); GLOMERULAR FILTRATION RATE > 60.0 (>56); GLUCOSE, FASTING 200 MG/DL (70-105); POTASSIUM SERUM 3.7 MEQ/L (3.5-5.1); SODIUM LEVEL 136 MEQ/L (136-145); TOTAL PROTEIN 7.5 GM/DL (6.4-8.2)
[2017-02-20 05:45] LABS: TYPE AND SCREEN 1 1
[2017-02-20] MEDS ORDERED: ONDANSETRON 4MG/2ML VIAL (J2405) IV ×2 (07:45)
[2017-02-20] MEDS: PHYTONADIONE 5 MG TAB PO ×2 (08:13)
[2017-02-20] MEDS: AUGMENTIN 875 MG TAB PO ×4 (08:13→21:09)
[2017-02-20 08:52] LABS: HEMATOCRIT 23.7 % (42.0-52.0); HEMOGLOBIN 7.7 g/dl (14.0-18.0); MEAN CORPUSCULAR HEMOGLOBIN 31.8 pg (27.0-33.0); MEAN CORPUSCULAR HGB CONC 32.5 g/dl (32.0-36.5); MEAN CORPUSCULAR VOLUME 97.9 fl (80.0-96.0); RED BLOOD COUNT 2.42 10^6/uL (4.30-6.10); RED CELL DISTRIBUTION WIDTH 17.2 % (11.5-14.5); WHITE BLOOD COUNT 3.4 10^3/uL (4.0-10.0)
[2017-02-20 09:00] LABS: PLATELET COUNT, AUTOMATED 37 10^3/uL (150-450)
[2017-02-20 09:09] LABS: ANION GAP 12 MEQ/L (8-16); BLOOD UREA NITROGEN 15 MG/DL (7-18); CALCIUM LEVEL 9.8 MG/DL (8.5-10.1); CARBON DIOXIDE LEVEL 21 MEQ/L (21-32); CHLORIDE LEVEL 105 MEQ/L (98-107); CREATININE FOR GFR 1.02 MG/DL (0.70-1.30); GLOMERULAR FILTRATION RATE > 60.0 (>56); GLUCOSE, FASTING 233 MG/DL (70-105); POTASSIUM SERUM 3.8 MEQ/L (3.5-5.1); SODIUM LEVEL 138 MEQ/L (136-145)
[2017-02-20 09:30] LABS: PROTHROMBIN TIME 17.5 SECONDS (12.4-14.5)
[2017-02-20 09:32] LABS: IMMEDIATE SPIN CROSSMATCH 1 2
[2017-02-20 09:35] LABS: PARTIAL THROMBOPLASTIN TIME 39.2 SECONDS (26.8-37.9)
[2017-02-20] MEDS: cloNIDine 0.2 MG TAB PO ×2 (09:57)
[2017-02-20] MEDS: amLODIPine 10 MG TAB PO ×2 (09:57)
[2017-02-20 10:30] LABS: KETONE, URINE AUTO RFX TRACE mg/dL (NEGATIVE); LEUKOCYTE ESTERASE UR AUTO RFX NEGATIVE (NEGATIVE); NITRITE, URINE AUTO RFX NEGATIVE (NEGATIVE); RBC, URINE AUTO RFX 15 /HPF (0-3); SPECIFIC GRAVITY UR AUTO RFX 1.006 (1.002-1.035); SQUAM EPITHELIAL CELL UR AURFX 0 /HPF (0-6); WBC, URINE AUTO RFX 0 /HPF (0-3)
[2017-02-20] MEDS ORDERED: FEXOFENADINE 60 MG TAB PO ×2 (11:00)
[2017-02-20] MEDS ORDERED: GLUCAGON FOR INJ 1 MG VIAL (J1610) SC ×2 (11:00)
[2017-02-20] MEDS ORDERED: ALBUTEROL 90 MCG/ACT 8GM HFA INHALER INH ×2 (11:00)
[2017-02-20] MEDS ORDERED: DEXTROSE 50% 50 ML SYRINGE IV ×2 (11:00)
[2017-02-20] MEDS ORDERED: GLUCOSE 4 GM CHEW TABLET PO ×2 (11:00)
[2017-02-20] MEDS ORDERED: ALBUTEROL SULFATE 2.5 MG/0.5 ML INH NEB SOLN INH ×2 (11:00)
[2017-02-20] MEDS: HumaLOG INSULIN (NovoLOG) PER UNIT SC ×6 (11:58→21:11)
[2017-02-20] MEDS: SUCRALFATE SUSP 1GM/10ML UD PO ×2 (11:59)
[2017-02-20] MEDS: PANTOPRAZOLE 40MG TAB (PROTONIX) PO ×2 (11:59)
[2017-02-20] MEDS: SPIRONOLACTONE 50 MG TAB PO ×4 (11:59→16:48)
[2017-02-20] MEDS: FOLIC ACID 1 MG TAB PO ×2 (11:59)
[2017-02-20] MEDS: **hydrALAZINE** 10 MG TAB PO ×6 (11:59→21:00)
[2017-02-20] MEDS: THIAMINE 100 MG TAB PO ×2 (11:59)
[2017-02-20] MEDS: CALCIUM CARBONATE 500 MG CHEW U/D PO ×2 (11:59)
[2017-02-20] MEDS: FUROSEMIDE 20 MG TAB PO ×4 (11:59→16:48)
[2017-02-20] MEDS: MULTIVITAMINS/MINERALS THERAP 1 TAB PO ×2 (11:59)
[2017-02-20] MEDS: MAGNESIUM OXIDE 400 MG TAB (MAG-OX) PO ×4 (11:59→21:10)
[2017-02-20] MEDS: NADOLOL 20MG TABLET PO ×2 (12:00)
[2017-02-20 16:41] LABS: BEDSIDE GLUCOSE 324 MG/DL (70-105)
[2017-02-20 19:13] LABS: HEMATOCRIT 26.1 % (42.0-52.0); HEMOGLOBIN 8.7 g/dl (14.0-18.0); MEAN CORPUSCULAR HEMOGLOBIN 30.6 pg (27.0-33.0); MEAN CORPUSCULAR HGB CONC 33.3 g/dl (32.0-36.5); MEAN CORPUSCULAR VOLUME 91.9 fl (80.0-96.0); RED BLOOD COUNT 2.84 10^6/uL (4.30-6.10); RED CELL DISTRIBUTION WIDTH 17.9 % (11.5-14.5)
[2017-02-20 19:23] LABS: PLATELET COUNT, AUTOMATED 28 10^3/uL (150-450); POS COUNT POS FLAG
[2017-02-20 20:37] LABS: BEDSIDE GLUCOSE 283 MG/DL (70-105)
[2017-02-20] MEDS: VITAMIN D 1,000 INTERNATIONAL UNITS TABLET PO ×2 (21:10)
[2017-02-20] MEDS: LEVEMIR (INSULIN DETEMIR) 1 UNITS/0.01ML SC ×2 (21:11)
[2017-02-21 02:56] LABS: IMMEDIATE SPIN CROSSMATCH 1
[2017-02-21 06:59] LABS: HEMATOCRIT 24.3 % (42.0-52.0); HEMOGLOBIN 8.1 g/dl (14.0-18.0); MEAN CORPUSCULAR HEMOGLOBIN 31.5 pg (27.0-33.0); MEAN CORPUSCULAR HGB CONC 33.3 g/dl (32.0-36.5); MEAN CORPUSCULAR VOLUME 94.6 fl (80.0-96.0); RED BLOOD COUNT 2.57 10^6/uL (4.30-6.10); RED CELL DISTRIBUTION WIDTH 18.8 % (11.5-14.5); WHITE BLOOD COUNT 5.4 10^3/uL (4.0-10.0)
[2017-02-21 07:00] LABS: PLATELET COUNT, AUTOMATED 30 10^3/uL (150-450)
[2017-02-21 07:02] LABS: IMMATURE PLATELET FRACTION % 3.4 % (0.0-10.9)
[2017-02-21 07:17] LABS: INR 1.45
[2017-02-21 07:18] LABS: ALBUMIN 2.6 GM/DL (3.2-5.2); ANION GAP 10 MEQ/L (8-16); BLOOD UREA NITROGEN 16 MG/DL (7-18); CALCIUM LEVEL 9.7 MG/DL (8.5-10.1); CARBON DIOXIDE LEVEL 27 MEQ/L (21-32); CHLORIDE LEVEL 101 MEQ/L (98-107); CREATININE FOR GFR 1.01 MG/DL (0.70-1.30); FIBRINOGEN 306 MG/DL (221-452); GLOMERULAR FILTRATION RATE > 60.0 (>56); GLUCOSE, FASTING 85 MG/DL (70-105); PARTIAL THROMBOPLASTIN TIME 40.8 SECONDS (26.8-37.9); SODIUM LEVEL 138 MEQ/L (136-145)
[2017-02-21 07:21] LABS: D-DIMER QUANT 698.5 ng/ml (<500)
[2017-02-21 07:28] LABS: POTASSIUM SERUM 2.8 MEQ/L (3.5-5.1)
[2017-02-21] MEDS: HumaLOG INSULIN (NovoLOG) PER UNIT SC ×4 (07:30→12:10)
[2017-02-21] MEDS: **hydrALAZINE** 10 MG TAB PO ×2 (09:00)
[2017-02-21] MEDS: AUGMENTIN 875 MG TAB PO ×2 (09:23)
[2017-02-21] MEDS: SUCRALFATE SUSP 1GM/10ML UD PO ×2 (09:23)
[2017-02-21] MEDS: SPIRONOLACTONE 50 MG TAB PO ×2 (09:24)
[2017-02-21] MEDS: NADOLOL 20MG TABLET PO ×2 (09:24)
[2017-02-21] MEDS: MAGNESIUM OXIDE 400 MG TAB (MAG-OX) PO ×2 (09:24)
[2017-02-21] MEDS: MULTIVITAMINS/MINERALS THERAP 1 TAB PO ×2 (09:24)
[2017-02-21] MEDS: THIAMINE 100 MG TAB PO ×2 (09:24)
[2017-02-21] MEDS: PANTOPRAZOLE 40MG TAB (PROTONIX) PO ×2 (09:24)
[2017-02-21] MEDS: POTASSIUM CHLORIDE 10 MEQ SR TABLET PO ×4 (09:25→12:09)
[2017-02-21] MEDS: FOLIC ACID 1 MG TAB PO ×2 (09:25)
[2017-02-21] MEDS: FUROSEMIDE 20 MG TAB PO ×2 (09:25)
[2017-02-21] MEDS: PHYTONADIONE 5 MG TAB PO ×2 (09:26)
[2017-02-21] MEDS: LEVEMIR (INSULIN DETEMIR) 1 UNITS/0.01ML SC ×2 (09:26)
[2017-02-21 11:55] LABS: BEDSIDE GLUCOSE 165 MG/DL (70-105)
[2017-02-21 14:17] LABS: POTASSIUM SERUM 3.9 MEQ/L (3.5-5.1)
[2017-02-21 14:35] LABS: TYPE AND SCREEN 1
[2017-02-21 16:41] LABS: BEDSIDE GLUCOSE 150 MG/DL (70-105)
== END 2017-02-21 17:00 | disposition home or self-care (01) ==
LOC: M ED INP 02-20 07:41 → M ED 19:29 → M ED INP 19:31 → M MSPAV 02-20 14:18
DX: D62 Acute posthemorrhagic anemia (principal); R04.0 Epistaxis; D61.818 Other pancytopenia; E11.9 Type 2 diabetes mellitus without complications; K21.9 Gastro-esophageal reflux disease without esophagitis; J45.909 Unspecified asthma, uncomplicated; K70.30 Alcoholic cirrhosis of liver without ascites; I10 Essential (primary) hypertension; E78.00 Pure hypercholesterolemia, unspecified; F10.10 Alcohol abuse, uncomplicated; Z79.4 Long term (current) use of insulin; Z79.899 Other long term (current) drug therapy
CPT/HCPCS: 36430

== ENCOUNTER → 2017-02-22 | Outpatient (CLI) | payer MEDICARE ==
[2017-02-22 16:29] LABS: ANION GAP 10 MEQ/L (8-16); BLOOD UREA NITROGEN 18 MG/DL (7-18); CALCIUM LEVEL 10.1 MG/DL (8.5-10.1); CARBON DIOXIDE LEVEL 24 MEQ/L (21-32); CHLORIDE LEVEL 100 MEQ/L (98-107); CREATININE FOR GFR 1.27 MG/DL (0.70-1.30); GLOMERULAR FILTRATION RATE > 60.0 (>56); GLUCOSE, FASTING 200 MG/DL (70-105); SODIUM LEVEL 134 MEQ/L (136-145)
[2017-02-22 16:30] LABS: HEMATOCRIT 30.1 % (42.0-52.0); HEMOGLOBIN 9.5 g/dl (14.0-18.0); MEAN CORPUSCULAR HGB CONC 31.6 g/dl (32.0-36.5); MEAN CORPUSCULAR VOLUME 98.4 fl (80.0-96.0); RED BLOOD COUNT 3.06 10^6/uL (4.30-6.10); RED CELL DISTRIBUTION WIDTH 19.5 % (11.5-14.5); WHITE BLOOD COUNT 9.2 10^3/uL (4.0-10.0)
[2017-02-22 17:12] LABS: POS COUNT POS FLAG; POSITIVE MORPH POS FLAG; SUSPECT SAMPLE POS FLAG
== END ==
LOC: M LRY 11:04
DX: E87.6 Hypokalemia (principal); D61.818 Other pancytopenia
CPT/HCPCS: 80048

== ENCOUNTER 2017-06-01 21:15 | Inpatient (IN) | payer MEDICARE ==
[2017-06-01 22:45] LABS: BASO # 0.1 10^3/uL (0.0-0.2); BASO % 0.8 % (0.0-1.0); HEMATOCRIT 30.6 % (42.0-52.0); HEMOGLOBIN 9.5 g/dl (13.5-17.5); IMMATURE GRANULOCYTE % 0.3 % (0-3.0); LYMPH # 0.8 10^3/uL (1.5-4.5); LYMPH % 11.7 % (24.0-44.0); MEAN CORPUSCULAR HEMOGLOBIN 31.5 pg (27.0-33.0); MEAN CORPUSCULAR VOLUME 101.3 fl (80.0-96.0); MONO # 0.7 10^3/uL (0.0-0.8); MONO % 10.1 % (0.0-5.0); NEUTROPHILS # 5.1 10^3/uL (1.8-7.7); NEUTROPHILS % 77.1 % (36.0-66.0); RED BLOOD COUNT 3.02 10^6/uL (4.30-6.10); RED CELL DISTRIBUTION WIDTH 18.6 % (11.5-14.5); WHITE BLOOD COUNT 6.7 10^3/uL (4.0-10.0)
[2017-06-01 22:54] LABS: INR 1.67; PROTHROMBIN TIME 20.2 SECONDS (12.4-14.5)
[2017-06-01 22:55] LABS: PARTIAL THROMBOPLASTIN TIME 39.1 SECONDS (26.8-37.9)
[2017-06-01] MEDS: PANTOPRAZOLE 40MG INJ (PROTONIX) (C9113) IV (22:59)
[2017-06-01 23:01] LABS: AMMONIA < 10 uMOL/L (<32)
[2017-06-01 23:07] LABS: ALBUMIN 2.5 GM/DL (3.2-5.2); ALKALINE PHOSPHATASE 205 U/L (45-117); ALT/SGPT 30 U/L (12-78); ANION GAP 8 MEQ/L (8-16); AST/SGOT 39 U/L (7-37); BILIRUBIN,DIRECT 5.8 MG/DL (0.0-0.2); BILIRUBIN,TOTAL 7.9 MG/DL (0.2-1.0); BLOOD UREA NITROGEN 34 MG/DL (7-18); CALCIUM LEVEL 10.9 MG/DL (8.5-10.1); CARBON DIOXIDE LEVEL 24 MEQ/L (21-32); CHLORIDE LEVEL 93 MEQ/L (98-107); CK-MB VALUE MASS 1.3 NG/ML (<3.6); CPK CREATINE PHOSPHOKINASE 35 U/L (39-308); CREATININE FOR GFR 2.08 MG/DL (0.70-1.30); MB/CK RELATIVE INDEX 3.71 (< OR =4); POTASSIUM SERUM 4.4 MEQ/L (3.5-5.1); SODIUM LEVEL 125 MEQ/L (136-145); TOTAL PROTEIN 7.5 GM/DL (6.4-8.2); TROPONIN I < 0.02 NG/ML (< 0.10)
[2017-06-01 23:16] LABS: LACTIC ACID SEPSIS PROTOCOL 3.2 MMOL/L (0.4-2.0)
[2017-06-01 23:17] LABS: GLUCOSE, FASTING 700 MG/DL (70-100); LIPASE 1658 U/L (73-393)
[2017-06-01 23:21] LABS: PLATELET COUNT, AUTOMATED 52 10^3/uL (150-450)
[2017-06-01 23:22] LABS: IMMATURE PLATELET FRACTION % 3.2 % (0.0-10.9)
[2017-06-01] MEDS: NS 500 ML IV (23:30)
[2017-06-01] MEDS: LEVEMIR (INSULIN DETEMIR) 1 UNITS/0.01ML SC (23:30)
[2017-06-01] MEDS ORDERED: INSULIN HUMAN REGULAR 100 UNITS in NS 99 ML IV (23:47)
[2017-06-02] MEDS: NS 1,000 ML IV ×4 (00:25→18:13)
[2017-06-02] MEDS: INSULIN HUMAN REGULAR 100 UNITS in NS 99 ML IV (00:25)
[2017-06-02 00:30] LABS: OSMOLALITY SERUM 313 MOSM/KG (275-295)
[2017-06-02] MEDS: HumuLIN R (REGULAR) INSULIN (NovoLIN R) **100U/ML** PER UNIT SC (00:30)
[2017-06-02] MEDS ORDERED: MORPHINE 4 MG/ML 1ML VIAL/SYRINGE (J2270) IV (01:00)
[2017-06-02] MEDS ORDERED: ONDANSETRON 4MG/2ML VIAL (J2405) IV (01:00)
[2017-06-02] MEDS ORDERED: PANTOPRAZOLE 40MG INJ (PROTONIX) (C9113) IV ×2 (01:00→09:00)
[2017-06-02 02:53] LABS: SOURCE, BODY FLUID ALBUMIN ASCITES
[2017-06-02 03:01] LABS: SPEC. GRAVITY BODY FLUIDS 1.016 (NOT ESTABLISHED)
[2017-06-02 03:05] LABS: BF MONONUCLEAR CELL % 71.3 % (0-0); BF POLYMORPHONUCLEAR CELL % 28.7 % (0-0); RBC BODY FLUID < 2 10^3/uL (<2); WBC BODY FLUID 199 /uL (0-10)
[2017-06-02 03:07] LABS: APPEARANCE, BODY FLUID HAZY (CLEAR); ASCITES FL COLOR YELLOW (COLORLESS); BF DIFF IF INDICATED? YES (NO); SOURCE, BODY FLUID ASCITES
[2017-06-02 03:16] LABS: ANION GAP 13 MEQ/L (8-16); BLOOD UREA NITROGEN 34 MG/DL (7-18); CALCIUM LEVEL 10.3 MG/DL (8.5-10.1); CARBON DIOXIDE LEVEL 19 MEQ/L (21-32); CHLORIDE LEVEL 101 MEQ/L (98-107); CREATININE FOR GFR 1.97 MG/DL (0.70-1.30); GLOMERULAR FILTRATION RATE 38.3 (>56); MAGNESIUM LEVEL 1.5 MG/DL (1.8-2.4); POTASSIUM SERUM 3.6 MEQ/L (3.5-5.1); SODIUM LEVEL 133 MEQ/L (136-145)
[2017-06-02 03:17] LABS: SOURCE, BODY FLUID GLUCOSE ASCITES; SOURCE, BODY FLUID TOT PROTEIN ASCITES; TOTAL PROTEIN, BODY FLUID 1.5 G/DL (NOT ESTABLISHED)
[2017-06-02 03:22] LABS: ETHYL ALCOHOL (ETHANOL) < 0.003 % (0.000-0.010); GLUCOSE, FASTING 535 MG/DL (70-100)
[2017-06-02 03:32] LABS: TYPE AND SCREEN 1
[2017-06-02] MEDS: MEROPENEM INJ 1 GM in APPROPRIATE DILUENT 1 EA IV ×2 (04:13→14:04)
[2017-06-02] MEDS: KCL 20MEQ in NS 1000ML 1,000 ML IV ×2 (04:17→11:44)
[2017-06-02 04:24] LABS: BEDSIDE GLUCOSE 359 MG/DL (70-105)
[2017-06-02 04:24] LABS: BEDSIDE GLUCOSE 488 MG/DL (70-105)
[2017-06-02] MEDS: INSULIN IV RATE CHANGE DOCUMENTATION ML/HR XX ×4 (04:35→10:18)
[2017-06-02] MEDS: MAG SULF 1GM/100ML (MAG RUN) 1 GM in APPROPRIATE DILUENT 1 EA IV ×2 (05:07→09:39)
[2017-06-02 05:22] LABS: BEDSIDE GLUCOSE 239 MG/DL (70-105)
[2017-06-02 05:25] LABS: BASO # 0.1 10^3/uL (0.0-0.2); EOS % 0.2 % (0.0-3.0); HEMATOCRIT 26.8 % (42.0-52.0); HEMOGLOBIN 8.8 g/dl (13.5-17.5); IMMATURE GRANULOCYTE % 0.3 % (0-3.0); LYMPH % 15.3 % (24.0-44.0); MEAN CORPUSCULAR HEMOGLOBIN 31.5 pg (27.0-33.0); MEAN CORPUSCULAR HGB CONC 32.8 g/dl (32.0-36.5); MEAN CORPUSCULAR VOLUME 96.1 fl (80.0-96.0); MONO % 15.5 % (0.0-5.0); NEUTROPHILS # 4.2 10^3/uL (1.8-7.7); NEUTROPHILS % 67.7 % (36.0-66.0); RED BLOOD COUNT 2.79 10^6/uL (4.30-6.10); RED CELL DISTRIBUTION WIDTH 18.7 % (11.5-14.5); WHITE BLOOD COUNT 6.2 10^3/uL (4.0-10.0)
[2017-06-02 05:28] LABS: PLATELET COUNT, AUTOMATED 46 10^3/uL (150-450)
[2017-06-02 05:43] LABS: ALBUMIN 2.2 GM/DL (3.2-5.2); ALBUMIN/GLOBULIN RATIO 0.49 (1.00-1.93); ALKALINE PHOSPHATASE 162 U/L (45-117); ALT/SGPT 28 U/L (12-78); ANION GAP 10 MEQ/L (8-16); AST/SGOT 31 U/L (7-37); BILIRUBIN,TOTAL 5.7 MG/DL (0.2-1.0); BLOOD UREA NITROGEN 34 MG/DL (7-18); CALCIUM LEVEL 10.7 MG/DL (8.5-10.1); CARBON DIOXIDE LEVEL 21 MEQ/L (21-32); CHLORIDE LEVEL 102 MEQ/L (98-107); CREATININE FOR GFR 1.81 MG/DL (0.70-1.30); GLOMERULAR FILTRATION RATE 42.3 (>56); GLUCOSE, FASTING 232 MG/DL (70-100); LIPASE 1273 U/L (73-393); MAGNESIUM LEVEL 1.3 MG/DL (1.8-2.4); POTASSIUM SERUM 3.2 MEQ/L (3.5-5.1); SODIUM LEVEL 133 MEQ/L (136-145); TOTAL PROTEIN 6.7 GM/DL (6.4-8.2)
[2017-06-02 06:26] LABS: BEDSIDE GLUCOSE 209 MG/DL (70-105)
[2017-06-02 07:28] LABS: BEDSIDE GLUCOSE 177 MG/DL (70-105)
[2017-06-02 08:15] LABS: BEDSIDE GLUCOSE 178 MG/DL (70-105)
[2017-06-02 08:23] LABS: TYPE AND SCREEN 1
[2017-06-02] MEDS: NADOLOL 20MG TABLET PO (09:00)
[2017-06-02] MEDS: SENOKOT S TAB PO ×2 (09:06→21:57)
[2017-06-02] MEDS: MAGNESIUM OXIDE 400 MG TAB (MAG-OX) PO ×2 (09:06→21:57)
[2017-06-02] MEDS: SUCRALFATE SUSP 1GM/10ML UD PO (09:06)
[2017-06-02] MEDS: THIAMINE 100 MG TAB PO (09:06)
[2017-06-02] MEDS: MULTIVITAMINS/MINERALS THERAP 1 TAB PO (09:07)
[2017-06-02 09:09] LABS: HEMATOCRIT 27.1 % (42.0-52.0); HEMOGLOBIN 8.9 g/dl (13.5-17.5)
[2017-06-02 09:26] LABS: APPEARANCE, URINE CLEAR (CLEAR); BACTERIA, URINE AUTO NEGATIVE (NEGATIVE); BILIRUBIN, URINE AUTO NEGATIVE (NEGATIVE); BLOOD, URINE BLOOD NEGATIVE (NEGATIVE); COLOR, URINE AMBER (YELLOW); GLUCOSE, URINE (UA) AUTO 3+ mg/dL (NEGATIVE); KETONE, URINE AUTO NEGATIVE (NEGATIVE); LEUKOCYTE ESTERASE, URINE AUTO NEGATIVE (NEGATIVE); NITRITE, URINE AUTO NEGATIVE (NEGATIVE); PROTEIN, URINE AUTO NEGATIVE (NEGATIVE); RBC, URINE AUTO 0 /HPF (0-3); SPECIFIC GRAVITY URINE AUTO 1.016 (1.002-1.035); SQUAMOUS EPITHELIAL CELL UR AU 0 /HPF (0-6); UROBILINOGEN, URINE AUTO 0.2 mg/dL (0.0-2.0); WBC, URINE AUTO 1 /HPF (0-3)
[2017-06-02 09:34] LABS: ANION GAP 9 MEQ/L (8-16); BLOOD UREA NITROGEN 33 MG/DL (7-18); CALCIUM LEVEL 10.5 MG/DL (8.5-10.1); CARBON DIOXIDE LEVEL 23 MEQ/L (21-32); CHLORIDE LEVEL 104 MEQ/L (98-107); CREATININE FOR GFR 1.67 MG/DL (0.70-1.30); GLOMERULAR FILTRATION RATE 46.4 (>56); GLUCOSE, FASTING 153 MG/DL (70-100); MAGNESIUM LEVEL 1.6 MG/DL (1.8-2.4); POTASSIUM SERUM 3.3 MEQ/L (3.5-5.1); SODIUM LEVEL 136 MEQ/L (136-145)
[2017-06-02 09:40] LABS: CHLORIDE,RANDOM URINE 11 MEQ/L
[2017-06-02 09:44] LABS: OSMOLALITY URINE 447 MOSM/KG (500-800)
[2017-06-02 09:48] LABS: AMPHETAMINES LEVEL URINE NEGATIVE (NEGATIVE); BARBITURATES URINE NEGATIVE (NEGATIVE); BENZODIAZEPINES URINE NEGATIVE (NEGATIVE); CANNABINOIDS URINE NEGATIVE (NEGATIVE); COCAINE METABOLITE URINE NEGATIVE (NEGATIVE); CREATININE,RANDOM URINE 60.4 MG/DL; METHADONE URINE NEGATIVE (NEGATIVE); OPIATES URINE NEGATIVE (NEGATIVE); PHENCYCLIDINE URINE NEGATIVE (NEGATIVE); POTASSIUM RANDOM URINE 21.6 MEQ/L; SODIUM,RANDOM URINE 15 MEQ/L; TOTAL PROTEIN,RANDOM URINE 14.5 MG/DL (0.0-12.0)
[2017-06-02 10:23] LABS: BEDSIDE GLUCOSE 146 MG/DL (70-105)
[2017-06-02] MEDS: PANTOPRAZOLE 40MG TAB (PROTONIX) PO ×2 (11:44→21:57)
[2017-06-02] MEDS: POTASSIUM CHLORIDE 10 MEQ SR TABLET PO (11:44)
[2017-06-02 12:01] LABS: BEDSIDE GLUCOSE 108 MG/DL (70-105)
[2017-06-02 13:41] LABS: BEDSIDE GLUCOSE > 600 MG/DL (70-105)
[2017-06-02 13:44] LABS: ANION GAP 9 MEQ/L (8-16); BLOOD UREA NITROGEN 33 MG/DL (7-18); CALCIUM LEVEL 9.9 MG/DL (8.5-10.1); CARBON DIOXIDE LEVEL 21 MEQ/L (21-32); CHLORIDE LEVEL 107 MEQ/L (98-107); CREATININE FOR GFR 1.59 MG/DL (0.70-1.30); GLOMERULAR FILTRATION RATE 49.1 (>56); GLUCOSE, FASTING 57 MG/DL (70-100); MAGNESIUM LEVEL 1.8 MG/DL (1.8-2.4); POTASSIUM SERUM 3.3 MEQ/L (3.5-5.1); SODIUM LEVEL 137 MEQ/L (136-145)
[2017-06-02] MEDS: PENTOXIFYLLINE 400 MG TAB PO ×2 (14:04→21:57)
[2017-06-02] MEDS ORDERED: DEXTROSE 50% 50 ML SYRINGE As Ordered (14:07)
[2017-06-02] MEDS: DEXTROSE 50% 50 ML SYRINGE IV (14:15)
[2017-06-02 14:27] LABS: BEDSIDE GLUCOSE 45 MG/DL (70-105)
[2017-06-02 14:52] LABS: TYPE AND SCREEN 1
[2017-06-02 16:07] LABS: BEDSIDE GLUCOSE 143 MG/DL (70-105)
[2017-06-02 16:07] LABS: BEDSIDE GLUCOSE 170 MG/DL (70-105)
[2017-06-02 17:01] LABS: BEDSIDE GLUCOSE 198 MG/DL (70-105)
[2017-06-02 17:12] LABS: HEMATOCRIT 26.7 % (42.0-52.0); HEMOGLOBIN 8.6 g/dl (13.5-17.5)
[2017-06-02] MEDS ORDERED: DEXTROSE 50% 50 ML SYRINGE IV (17:15)
[2017-06-02] MEDS ORDERED: GLUCAGON FOR INJ 1 MG VIAL (J1610) SC (17:15)
[2017-06-02] MEDS ORDERED: GLUCOSE 4 GM CHEW TABLET PO (17:15)
[2017-06-02 17:21] LABS: ANION GAP 10 MEQ/L (8-16); BLOOD UREA NITROGEN 33 MG/DL (7-18); CALCIUM LEVEL 10.1 MG/DL (8.5-10.1); CARBON DIOXIDE LEVEL 20 MEQ/L (21-32); CHLORIDE LEVEL 105 MEQ/L (98-107); CREATININE FOR GFR 1.64 MG/DL (0.70-1.30); GLOMERULAR FILTRATION RATE 47.4 (>56); GLUCOSE, FASTING 173 MG/DL (70-100); MAGNESIUM LEVEL 1.8 MG/DL (1.8-2.4); SODIUM LEVEL 135 MEQ/L (136-145)
[2017-06-02] MEDS: HumaLOG INSULIN (NovoLOG) PER UNIT SC ×2 (17:41→21:00)
[2017-06-02] MEDS: LEVEMIR (INSULIN DETEMIR) 1 UNITS/0.01ML SC (17:41)
[2017-06-02 20:12] LABS: TYPE AND SCREEN 1
[2017-06-02 21:01] LABS: HEMATOCRIT 24.2 % (42.0-52.0); HEMOGLOBIN 7.8 g/dl (13.5-17.5)
[2017-06-02 21:24] LABS: ANION GAP 10 MEQ/L (8-16); BLOOD UREA NITROGEN 33 MG/DL (7-18); CALCIUM LEVEL 9.6 MG/DL (8.5-10.1); CARBON DIOXIDE LEVEL 19 MEQ/L (21-32); CHLORIDE LEVEL 106 MEQ/L (98-107); CREATININE FOR GFR 1.72 MG/DL (0.70-1.30); GLOMERULAR FILTRATION RATE 44.9 (>56); GLUCOSE, FASTING 218 MG/DL (70-100); MAGNESIUM LEVEL 1.6 MG/DL (1.8-2.4); POTASSIUM SERUM 3.9 MEQ/L (3.5-5.1); SODIUM LEVEL 135 MEQ/L (136-145)
[2017-06-02 21:59] LABS: BEDSIDE GLUCOSE 215 MG/DL (70-105)
[2017-06-03 01:11] LABS: HEMATOCRIT 22.8 % (42.0-52.0); HEMOGLOBIN 7.4 g/dl (13.5-17.5)
[2017-06-03 01:29] LABS: ANION GAP 8 MEQ/L (8-16); BLOOD UREA NITROGEN 35 MG/DL (7-18); CALCIUM LEVEL 9.8 MG/DL (8.5-10.1); CARBON DIOXIDE LEVEL 20 MEQ/L (21-32); CHLORIDE LEVEL 108 MEQ/L (98-107); CREATININE FOR GFR 1.61 MG/DL (0.70-1.30); GLOMERULAR FILTRATION RATE 48.4 (>56); GLUCOSE, FASTING 172 MG/DL (70-100); MAGNESIUM LEVEL 1.6 MG/DL (1.8-2.4); POTASSIUM SERUM 3.8 MEQ/L (3.5-5.1); SODIUM LEVEL 136 MEQ/L (136-145)
[2017-06-03] MEDS: MEROPENEM INJ 1 GM in APPROPRIATE DILUENT 1 EA IV ×2 (01:57→12:22)
[2017-06-03] MEDS: NS 1,000 ML IV (02:00)
[2017-06-03 03:37] LABS: IMMEDIATE SPIN CROSSMATCH 1 2
[2017-06-03] MEDS: PENTOXIFYLLINE 400 MG TAB PO ×3 (06:09→20:37)
[2017-06-03 07:54] LABS: BASO % 0.9 % (0.0-1.0); HEMATOCRIT 29.6 % (42.0-52.0); IMMATURE GRANULOCYTE % 0.4 % (0-3.0); LYMPH # 0.9 10^3/uL (1.5-4.5); LYMPH % 18.4 % (24.0-44.0); MEAN CORPUSCULAR HEMOGLOBIN 30.6 pg (27.0-33.0); MEAN CORPUSCULAR HGB CONC 32.8 g/dl (32.0-36.5); MEAN CORPUSCULAR VOLUME 93.4 fl (80.0-96.0); MONO # 0.6 10^3/uL (0.0-0.8); NEUTROPHILS # 3.1 10^3/uL (1.8-7.7); NEUTROPHILS % 67.3 % (36.0-66.0); RED BLOOD COUNT 3.17 10^6/uL (4.30-6.10); RED CELL DISTRIBUTION WIDTH 24.4 % (11.5-14.5); WHITE BLOOD COUNT 4.6 10^3/uL (4.0-10.0)
[2017-06-03 08:02] LABS: HEMOGLOBIN 9.7 g/dl (13.5-17.5); IMMATURE PLATELET FRACTION % 3.1 % (0.0-10.9); PLATELET COUNT, AUTOMATED 36 10^3/uL (150-450); PLATELET F 37
[2017-06-03 08:16] LABS: INR 1.65
[2017-06-03 08:22] LABS: ALBUMIN 2.8 GM/DL (3.2-5.2); ALBUMIN/GLOBULIN RATIO 0.76 (1.00-1.93); ALKALINE PHOSPHATASE 151 U/L (45-117); ALT/SGPT 26 U/L (12-78); ANION GAP 10 MEQ/L (8-16); AST/SGOT 49 U/L (7-37); BLOOD UREA NITROGEN 30 MG/DL (7-18); CALCIUM LEVEL 9.3 MG/DL (8.5-10.1); CARBON DIOXIDE LEVEL 20 MEQ/L (21-32); CHLORIDE LEVEL 109 MEQ/L (98-107); CREATININE FOR GFR 1.63 MG/DL (0.70-1.30); GLOMERULAR FILTRATION RATE 47.7 (>56); GLUCOSE, FASTING 201 MG/DL (70-100); LIPASE 475 U/L (73-393); MAGNESIUM LEVEL 1.7 MG/DL (1.8-2.4); PHOSPHORUS LEVEL 2.2 MG/DL (2.5-4.9); POTASSIUM SERUM 3.8 MEQ/L (3.5-5.1); SODIUM LEVEL 139 MEQ/L (136-145); TOTAL PROTEIN 6.5 GM/DL (6.4-8.2)
[2017-06-03 08:33] LABS: BEDSIDE GLUCOSE 227 MG/DL (70-105)
[2017-06-03] MEDS: LEVEMIR (INSULIN DETEMIR) 1 UNITS/0.01ML SC (09:00)
[2017-06-03] MEDS: SENOKOT S TAB PO ×2 (09:00→20:37)
[2017-06-03] MEDS: NADOLOL 20MG TABLET PO (09:00)
[2017-06-03] MEDS: PANTOPRAZOLE 40MG TAB (PROTONIX) PO ×2 (09:01→20:36)
[2017-06-03] MEDS: MAGNESIUM OXIDE 400 MG TAB (MAG-OX) PO ×2 (09:01→20:36)
[2017-06-03] MEDS: HumaLOG INSULIN (NovoLOG) PER UNIT SC ×4 (09:01→20:36)
[2017-06-03] MEDS: THIAMINE 100 MG TAB PO (09:01)
[2017-06-03] MEDS: MULTIVITAMINS/MINERALS THERAP 1 TAB PO (09:01)
[2017-06-03] MEDS: SUCRALFATE SUSP 1GM/10ML UD PO (09:02)
[2017-06-03 10:46] LABS: PREALBUMIN 6.7 MG/DL (20.0-40.0)
[2017-06-03 12:20] LABS: HEMATOCRIT 31.9 % (42.0-52.0); HEMOGLOBIN 10.3 g/dl (13.5-17.5)
[2017-06-03 12:21] LABS: BEDSIDE GLUCOSE 295 MG/DL (70-105)
[2017-06-03 12:52] LABS: ANION GAP 10 MEQ/L (8-16); BLOOD UREA NITROGEN 32 MG/DL (7-18); CALCIUM LEVEL 10.1 MG/DL (8.5-10.1); CARBON DIOXIDE LEVEL 18 MEQ/L (21-32); CHLORIDE LEVEL 108 MEQ/L (98-107); GLOMERULAR FILTRATION RATE 45.5 (>56); GLUCOSE, FASTING 276 MG/DL (70-100); MAGNESIUM LEVEL 1.7 MG/DL (1.8-2.4); POTASSIUM SERUM 3.7 MEQ/L (3.5-5.1); SODIUM LEVEL 136 MEQ/L (136-145)
[2017-06-03 16:57] LABS: HEMATOCRIT 32.9 % (42.0-52.0); HEMOGLOBIN 10.6 g/dl (13.5-17.5)
[2017-06-03 16:57] LABS: BEDSIDE GLUCOSE 321 MG/DL (70-105)
[2017-06-03 19:51] LABS: BEDSIDE GLUCOSE 200 MG/DL (70-105)
[2017-06-04] MEDS: MEROPENEM INJ 1 GM in APPROPRIATE DILUENT 1 EA IV ×2 (01:00→14:15)
[2017-06-04 04:26] LABS: BASO % 0.8 % (0.0-1.0); HEMATOCRIT 28.1 % (42.0-52.0); HEMOGLOBIN 9.1 g/dl (13.5-17.5); IMMATURE GRANULOCYTE % 0.3 % (0-3.0); LYMPH # 0.7 10^3/uL (1.5-4.5); LYMPH % 17.8 % (24.0-44.0); MEAN CORPUSCULAR HGB CONC 32.4 g/dl (32.0-36.5); MEAN CORPUSCULAR VOLUME 92.7 fl (80.0-96.0); MONO # 0.5 10^3/uL (0.0-0.8); NEUTROPHILS # 2.6 10^3/uL (1.8-7.7); NEUTROPHILS % 68.1 % (36.0-66.0); RED BLOOD COUNT 3.03 10^6/uL (4.30-6.10); RED CELL DISTRIBUTION WIDTH 24.1 % (11.5-14.5); WHITE BLOOD COUNT 3.8 10^3/uL (4.0-10.0)
[2017-06-04 04:31] LABS: PLATELET COUNT, AUTOMATED 29 10^3/uL (150-450); POS COUNT POS FLAG
[2017-06-04 04:36] LABS: INR 1.74; PROTHROMBIN TIME 20.8 SECONDS (12.4-14.5)
[2017-06-04 04:43] LABS: ALBUMIN 2.6 GM/DL (3.2-5.2); ALBUMIN/GLOBULIN RATIO 0.65 (1.00-1.93); ALKALINE PHOSPHATASE 159 U/L (45-117); ALT/SGPT 26 U/L (12-78); ANION GAP 9 MEQ/L (8-16); AST/SGOT 50 U/L (7-37); BILIRUBIN,TOTAL 5.6 MG/DL (0.2-1.0); BLOOD UREA NITROGEN 30 MG/DL (7-18); CALCIUM LEVEL 9.5 MG/DL (8.5-10.1); CARBON DIOXIDE LEVEL 19 MEQ/L (21-32); CHLORIDE LEVEL 111 MEQ/L (98-107); CREATININE FOR GFR 1.46 MG/DL (0.70-1.30); GLOMERULAR FILTRATION RATE 54.2 (>56); GLUCOSE, FASTING 217 MG/DL (70-100); LIPASE 468 U/L (73-393); MAGNESIUM LEVEL 1.3 MG/DL (1.8-2.4); POTASSIUM SERUM 3.6 MEQ/L (3.5-5.1); SODIUM LEVEL 139 MEQ/L (136-145); TOTAL PROTEIN 6.6 GM/DL (6.4-8.2)
[2017-06-04] MEDS: PENTOXIFYLLINE 400 MG TAB PO ×3 (06:00→21:46)
[2017-06-04] MEDS: HumaLOG INSULIN (NovoLOG) PER UNIT SC ×4 (07:31→21:00)
[2017-06-04] MEDS: LEVEMIR (INSULIN DETEMIR) 1 UNITS/0.01ML SC ×2 (07:31→21:46)
[2017-06-04] MEDS: SUCRALFATE SUSP 1GM/10ML UD PO (08:02)
[2017-06-04] MEDS: MAGNESIUM OXIDE 400 MG TAB (MAG-OX) PO ×2 (08:02→21:46)
[2017-06-04] MEDS: THIAMINE 100 MG TAB PO (08:03)
[2017-06-04] MEDS: MULTIVITAMINS/MINERALS THERAP 1 TAB PO (08:03)
[2017-06-04] MEDS: SENOKOT S TAB PO ×2 (08:03→21:00)
[2017-06-04] MEDS: PANTOPRAZOLE 40MG TAB (PROTONIX) PO ×2 (08:03→21:46)
[2017-06-04] MEDS: NADOLOL 20MG TABLET PO (08:03)
[2017-06-04 08:30] LABS: REASON FOR REVIEW PLATELET MORPHOLOGY; SLIDE REVIEW Report; SOURCE PERIPHERAL SMEAR
[2017-06-04 11:23] LABS: BEDSIDE GLUCOSE 292 MG/DL (70-105)
[2017-06-04] MEDS: FUROSEMIDE 100 MG/10 ML VIAL (J1940) IV (11:57)
[2017-06-04] MEDS: SPIRONOLACTONE 50 MG TAB PO ×2 (11:57→16:48)
[2017-06-04 16:35] LABS: BEDSIDE GLUCOSE 236 MG/DL (70-105)
[2017-06-04 21:49] LABS: BEDSIDE GLUCOSE 205 MG/DL (70-105)
[2017-06-05 04:07] LABS: BASO % 1.1 % (0.0-1.0); HEMATOCRIT 28.9 % (42.0-52.0); HEMOGLOBIN 9.4 g/dl (13.5-17.5); IMMATURE GRANULOCYTE % 0.3 % (0-3.0); LYMPH # 0.7 10^3/uL (1.5-4.5); LYMPH % 19.9 % (24.0-44.0); MEAN CORPUSCULAR HEMOGLOBIN 30.3 pg (27.0-33.0); MEAN CORPUSCULAR HGB CONC 32.5 g/dl (32.0-36.5); MEAN CORPUSCULAR VOLUME 93.2 fl (80.0-96.0); MONO # 0.4 10^3/uL (0.0-0.8); MONO % 11.6 % (0.0-5.0); NEUTROPHILS # 2.4 10^3/uL (1.8-7.7); NEUTROPHILS % 67.1 % (36.0-66.0); RED CELL DISTRIBUTION WIDTH 23.2 % (11.5-14.5); WHITE BLOOD COUNT 3.5 10^3/uL (4.0-10.0)
[2017-06-05 04:09] LABS: PLATELET COUNT, AUTOMATED 32 10^3/uL (150-450)
[2017-06-05 04:10] LABS: IMMATURE PLATELET FRACTION % 2.7 % (0.0-10.9)
[2017-06-05 04:21] LABS: INR 1.68; PROTHROMBIN TIME 20.3 SECONDS (12.4-14.5)
[2017-06-05 04:24] LABS: ALBUMIN 2.5 GM/DL (3.2-5.2); ALBUMIN/GLOBULIN RATIO 0.61 (1.00-1.93); ALKALINE PHOSPHATASE 163 U/L (45-117); ALT/SGPT 29 U/L (12-78); ANION GAP 8 MEQ/L (8-16); AST/SGOT 53 U/L (7-37); BILIRUBIN,TOTAL 5.7 MG/DL (0.2-1.0); BLOOD UREA NITROGEN 25 MG/DL (7-18); CALCIUM LEVEL 9.3 MG/DL (8.5-10.1); CARBON DIOXIDE LEVEL 22 MEQ/L (21-32); CHLORIDE LEVEL 108 MEQ/L (98-107); CREATININE FOR GFR 1.44 MG/DL (0.70-1.30); GLOMERULAR FILTRATION RATE 55.1 (>56); GLUCOSE, FASTING 129 MG/DL (70-100); LIPASE 380 U/L (73-393); MAGNESIUM LEVEL 1.3 MG/DL (1.8-2.4); POTASSIUM SERUM 3.6 MEQ/L (3.5-5.1); SODIUM LEVEL 138 MEQ/L (136-145); TOTAL PROTEIN 6.6 GM/DL (6.4-8.2)
[2017-06-05] MEDS: PENTOXIFYLLINE 400 MG TAB PO (05:57)
[2017-06-05 07:43] LABS: BEDSIDE GLUCOSE 125 MG/DL (70-105)
[2017-06-05] MEDS: SUCRALFATE SUSP 1GM/10ML UD PO (08:15)
[2017-06-05] MEDS: HumaLOG INSULIN (NovoLOG) PER UNIT SC ×2 (08:16→11:53)
[2017-06-05] MEDS: MULTIVITAMINS/MINERALS THERAP 1 TAB PO (08:16)
[2017-06-05] MEDS: THIAMINE 100 MG TAB PO (08:16)
[2017-06-05] MEDS: SENOKOT S TAB PO (08:16)
[2017-06-05] MEDS: MAGNESIUM OXIDE 400 MG TAB (MAG-OX) PO (08:16)
[2017-06-05] MEDS: PANTOPRAZOLE 40MG TAB (PROTONIX) PO (08:17)
[2017-06-05] MEDS: SPIRONOLACTONE 50 MG TAB PO (08:17)
[2017-06-05] MEDS: NADOLOL 20MG TABLET PO (08:17)
[2017-06-05] MEDS: FUROSEMIDE 20 MG TAB PO (08:17)
[2017-06-05] MEDS: LEVEMIR (INSULIN DETEMIR) 1 UNITS/0.01ML SC (08:18)
== END 2017-06-05 12:10 | disposition home or self-care (01) | DRG 438 ==
LOC: M ED INP 06-02 00:57 → M MSPAV 06-05 10:32 → M ICU 06-02 02:44 → M ED 21:15
PROC: 0W9G3ZX Drainage of Peritoneal Cavity, Percutaneous Approach, Diagnostic (ICD-10-PCS; principal; 2017-06-02)
DX: K85.20 Alcohol induced acute pancreatitis without necrosis or infection (principal); E11.00 Type 2 diabetes mellitus with hyperosmolarity without nonketotic hyperglycemic-hyperosmolar coma (NKHHC); N17.9 Acute kidney failure, unspecified; E87.1 Hypo-osmolality and hyponatremia; D61.818 Other pancytopenia; I85.10 Secondary esophageal varices without bleeding; K70.31 Alcoholic cirrhosis of liver with ascites; K70.11 Alcoholic hepatitis with ascites; I12.9 Hypertensive chronic kidney disease with stage 1 through stage 4 chronic kidney disease, or unspecified chronic kidney disease; N18.9 Chronic kidney disease, unspecified; D69.6 Thrombocytopenia, unspecified; K80.20 Calculus of gallbladder without cholecystitis without obstruction; Z79.899 Other long term (current) drug therapy; Z79.4 Long term (current) use of insulin; K21.9 Gastro-esophageal reflux disease without esophagitis; J45.909 Unspecified asthma, uncomplicated; E87.6 Hypokalemia; I95.9 Hypotension, unspecified; E87.70 Fluid overload, unspecified

== ENCOUNTER → 2017-06-24 | Outpatient (REF) | payer MEDICARE ==
[2017-06-24 12:34] LABS: ANION GAP 10 MEQ/L (8-16); BLOOD UREA NITROGEN 16 MG/DL (7-18); CALCIUM LEVEL 10.2 MG/DL (8.5-10.1); CARBON DIOXIDE LEVEL 23 MEQ/L (21-32); CHLORIDE LEVEL 104 MEQ/L (98-107); CREATININE FOR GFR 1.12 MG/DL (0.70-1.30); GLOMERULAR FILTRATION RATE > 60.0 (>56); GLUCOSE, FASTING 262 MG/DL (70-100); POTASSIUM SERUM 4.1 MEQ/L (3.5-5.1); SODIUM LEVEL 137 MEQ/L (136-145)
[2017-06-24 13:41] LABS: ESTIMATED AVERAGE GLUCOSE 183 MG/DL (60-110)
[2017-06-25 10:36] LABS: ALPHA FETOPROTEIN TUMOR QUANT 1.5 NG/ML (<8.1)
== END ==
LOC: M SFHCPLAZ 08:39
DX: K70.31 Alcoholic cirrhosis of liver with ascites (principal); N17.9 Acute kidney failure, unspecified; E11.00 Type 2 diabetes mellitus with hyperosmolarity without nonketotic hyperglycemic-hyperosmolar coma (NKHHC)
CPT/HCPCS: 83036

== ENCOUNTER 2017-08-20 07:01 | Emergency (ER) | payer MEDICARE ==
[2017-08-20 08:35] LABS: HEMOGLOBIN 10.4 g/dl (13.5-17.5); MEAN CORPUSCULAR HEMOGLOBIN 32.7 pg (27.0-33.0); MEAN CORPUSCULAR HGB CONC 33.5 g/dl (32.0-36.5); MEAN CORPUSCULAR VOLUME 97.5 fl (80.0-96.0); RED BLOOD COUNT 3.18 10^6/uL (4.30-6.10); WHITE BLOOD COUNT 3.7 10^3/uL (4.0-10.0)
[2017-08-20 08:49] LABS: ALBUMIN/GLOBULIN RATIO 0.61 (1.00-1.93); ALKALINE PHOSPHATASE 183 U/L (45-117); ALT/SGPT 34 U/L (12-78); AMYLASE 25 U/L (25-115); ANION GAP 9 MEQ/L (8-16); AST/SGOT 56 U/L (7-37); BILIRUBIN,DIRECT 4.7 MG/DL (0.0-0.2); BILIRUBIN,TOTAL 7.6 MG/DL (0.2-1.0); BLOOD UREA NITROGEN 25 MG/DL (7-18); CALCIUM LEVEL 11.9 MG/DL (8.5-10.1); CARBON DIOXIDE LEVEL 26 MEQ/L (21-32); CHLORIDE LEVEL 99 MEQ/L (98-107); CK-MB VALUE MASS < 1.0 NG/ML (<3.6); CPK CREATINE PHOSPHOKINASE 27 U/L (39-308); CREATININE FOR GFR 1.61 MG/DL (0.70-1.30); GLOMERULAR FILTRATION RATE 48.4 (>56); GLUCOSE, FASTING 349 MG/DL (70-100); LIPASE 122 U/L (73-393); SODIUM LEVEL 134 MEQ/L (136-145); TOTAL PROTEIN 7.9 GM/DL (6.4-8.2); TROPONIN I < 0.02 NG/ML (< 0.10)
[2017-08-20 08:51] LABS: LACTIC ACID SEPSIS PROTOCOL 2.3 MMOL/L (0.4-2.0)
[2017-08-20 09:01] LABS: PLATELET COUNT, AUTOMATED 31 10^3/uL (150-450)
[2017-08-20 10:07] LABS: IMMATURE PLATELET FRACTION % 2.7 % (0.0-10.9)
[2017-08-20 10:47] LABS: BEDSIDE GLUCOSE 330 MG/DL (70-105)
== END 2017-08-20 12:50 | disposition home or self-care (01) ==
LOC: M ED 07:01
DX: K70.30 Alcoholic cirrhosis of liver without ascites (principal); E80.6 Other disorders of bilirubin metabolism; R53.83 Other fatigue; F10.20 Alcohol dependence, uncomplicated; D64.9 Anemia, unspecified; J45.909 Unspecified asthma, uncomplicated; K21.9 Gastro-esophageal reflux disease without esophagitis; I10 Essential (primary) hypertension; M54.9 Dorsalgia, unspecified; Z87.19 Personal history of other diseases of the digestive system; Z79.899 Other long term (current) drug therapy; Z79.4 Long term (current) use of insulin
CPT/HCPCS: 76705

== ENCOUNTER → 2017-08-28 | Outpatient (REF) | payer MEDICARE ==
[2017-08-28 16:30] LABS: ANION GAP 9 MEQ/L (8-16); BLOOD UREA NITROGEN 37 MG/DL (7-18); CALCIUM LEVEL 13.2 MG/DL (8.5-10.1); CARBON DIOXIDE LEVEL 31 MEQ/L (21-32); CHLORIDE LEVEL 96 MEQ/L (98-107); CREATININE FOR GFR 1.95 MG/DL (0.70-1.30); GLOMERULAR FILTRATION RATE 38.8 (>56); GLUCOSE, FASTING 154 MG/DL (70-100); POTASSIUM SERUM 4.2 MEQ/L (3.5-5.1); SODIUM LEVEL 136 MEQ/L (136-145)
== END ==
LOC: M SFHCPLAZ 12:36
DX: E11.9 Type 2 diabetes mellitus without complications (principal)
CPT/HCPCS: 80048

== ENCOUNTER → 2017-09-09 | Outpatient (REF) | payer MEDICARE | LOC: M SFHCPLAZ 10:46 | DX: R89.9 Unspecified abnormal finding in specimens from other organs, systems and tissues (principal); E11.00 Type 2 diabetes mellitus with hyperosmolarity without nonketotic hyperglycemic-hyperosmolar coma (NKHHC); E78.5 Hyperlipidemia, unspecified ==

== ENCOUNTER → 2017-12-16 | Outpatient (REF) | payer MEDICARE | LOC: M SFHCPLAZ 15:45 | DX: K70.30 Alcoholic cirrhosis of liver without ascites (principal); Z53.8 Procedure and treatment not carried out for other reasons ==

== ENCOUNTER → 2018-02-20 | Outpatient (CLI) | payer MEDICARE ==
[~2018-02-20] MED LIST changes: +FOLI1TAB11 PO; -FOLI1TAB4 PO; +K-TA1TAB PO; +LANTINJ4 SC; +MAG400TA PO; +MAGN400T PO; +MIRA3350 PO; -PANT40TA2 PO; +PANT40TA3 PO; +PATIENT COMMENTS; +PENT40TASA PO; +SPIR100T3 PO; -SPIR50TA2 PO; +SPIR50TA4 PO; +THIA100T7 PO; +THIA100TA PO; +VENTAER INH
--- NOTE | 2018-02-20 10:18 | REP ---
Right upper quadrant sonography: History: Alcoholic liver cirrhosis. Comparison study: August 20, 2017. Comparison CT study June 01, 2017. Sonographic findings: Scanning through right upper quadrant of the abdomen demonstrates shadowing gallstones in a nontender gallbladder without evidence of wall thickening or pericholecystic fluid. Coarse liver texture is seen. Common bile duct is normal at 0.1 cm. The main portal vein is 14 mm in diameter and demonstrates reversal of flow direction. There are varices at the tomas hepatis. These findings are compatible with portal hypertension. No focal liver lesion is seen. There is no visible ascites. Limited views of the pancreas show no abnormality other than a somewhat prominent splenic vein. Increased echogenicity is seen in the cortex of the right kidney. No hydronephrosis seen. Right kidney measures 12.2 x 4.4 x 6.3 cm. Impression: Evidence of cirrhosis and portal hypertension. No focal mass lesion seen. No evidence of ascites. Electronically Signed by Sixto Scott MD 02/20/2018 10:50 A
== END ==
LOC: M RAD 08:30
PROVIDERS: ATTEND Internal Medicine
DX: K70.30 Alcoholic cirrhosis of liver without ascites (principal)

== ENCOUNTER 2018-03-01 07:46 | Emergency (ER) | payer MEDICARE ==
[~2018-03-01] VITALS: Ht 167.6 cm; Wt 77.3 kg
[2018-03-01 08:31] LABS: BASO % 0.7 % (0.0-1.0); HEMATOCRIT 28.3 % (42.0-52.0); HEMOGLOBIN 8.3 g/dl (13.5-17.5); LYMPH # 0.4 10^3/uL (1.5-4.5); LYMPH % 12.5 % (24.0-44.0); MEAN CORPUSCULAR HEMOGLOBIN 28.4 pg (27.0-33.0); MEAN CORPUSCULAR HGB CONC 29.3 g/dl (32.0-36.5); MEAN CORPUSCULAR VOLUME 96.9 fl (80.0-96.0); MONO # 0.4 10^3/uL (0.0-0.8); MONO % 14.7 % (0.0-5.0); NEUTROPHILS % 71.7 % (36.0-66.0); RED BLOOD COUNT 2.92 10^6/uL (4.30-6.10); WHITE BLOOD COUNT 2.8 10^3/uL (4.0-10.0)
[2018-03-01 08:40] LABS: PLATELET COUNT, AUTOMATED 23 10^3/uL (150-450)
[2018-03-01 08:57] LABS: ALBUMIN 2.4 GM/DL (3.2-5.2); ALT/SGPT 38 U/L (12-78); BILIRUBIN,DIRECT 4.5 MG/DL (0.0-0.2); BILIRUBIN,TOTAL 5.5 MG/DL (0.2-1.0); BLOOD UREA NITROGEN 22 MG/DL (7-18); CALCIUM LEVEL 9.1 MG/DL (8.5-10.1); CARBON DIOXIDE LEVEL 20 MEQ/L (21-32); CHLORIDE LEVEL 103 MEQ/L (98-107); CREATININE FOR GFR 1.32 MG/DL (0.70-1.30); GLOMERULAR FILTRATION RATE > 60.0 (>56); GLUCOSE, FASTING 108 MG/DL (70-100); MAGNESIUM LEVEL 1.4 MG/DL (1.8-2.4); PHOSPHORUS LEVEL 2.2 MG/DL (2.5-4.9); POTASSIUM SERUM 3.8 MEQ/L (3.5-5.1); SODIUM LEVEL 136 MEQ/L (136-145); TOTAL PROTEIN 7.1 GM/DL (6.4-8.2)
[2018-03-01 08:59] LABS: CPK CREATINE PHOSPHOKINASE 87 U/L (39-308); MB/CK RELATIVE INDEX 3.33 (< OR =4); TROPONIN I < 0.02 NG/ML (< 0.10)
[2018-03-01] MEDS ORDERED: NEUTRA-PHOS 1.25 GM PACKET PO ONE (09:15)
[2018-03-01] MEDS ORDERED: MAGNESIUM OXIDE 400 MG TAB (MAG-OX) PO ONE (09:15)
[2018-03-01 09:28] VITALS: BP 141/64
--- NOTE | 2018-03-02 09:20 | ECGEPIP ---
Stationary ECG Study [facility] - ED Test Date: 2018-03-01 Pat Name: ROSE ARMIJO Department: Room: - Gender: M Catia Designer: : 1965 Requested By: ERI Huff Order Number: [id number] Reading MD: Violeta Auguste Measurements Intervals [place] Rate: 90 P: 231 TN: 129 QRS: 74 QRSD: 112 T: 31 QT: 387 QTc: 475 Interpretive Statements PROBABLE ECTOPIC ATRIAL RHYTHM MODERATE INTRAVENTRICULAR CONDUCTION DELAY ABNORMAL RHYTHM ECG NONSPECIFIC ST T WAVE CHANGES DELAYED R WAVE PROGRESSION CW 08/20/[address] T WAVE CHANGES Electronically Signed On 03-02-2018 9:20:13 EST by Violeta Auguste
== END 2018-03-01 09:44 | disposition home or self-care (01) ==
LOC: EDBD 07:46 → M ED 07:46
DX: E83.42 Hypomagnesemia (principal); E83.39 Other disorders of phosphorus metabolism; E11.9 Type 2 diabetes mellitus without complications; K64.9 Unspecified hemorrhoids; D64.9 Anemia, unspecified; I10 Essential (primary) hypertension; E78.9 Disorder of lipoprotein metabolism, unspecified; J45.909 Unspecified asthma, uncomplicated; K21.9 Gastro-esophageal reflux disease without esophagitis; K70.30 Alcoholic cirrhosis of liver without ascites; I85.10 Secondary esophageal varices without bleeding; Z79.899 Other long term (current) drug therapy; Z79.4 Long term (current) use of insulin

== ENCOUNTER → 2018-03-27 | Outpatient (REF) | payer MEDICARE ==
[2018-03-27 20:27] LABS: ALBUMIN 2.7 GM/DL (3.2-5.2); BILIRUBIN,TOTAL 4.6 MG/DL (0.2-1.0); CALCIUM LEVEL 10.2 MG/DL (8.5-10.1); CREATININE FOR GFR 1.54 MG/DL (0.70-1.30); GLOMERULAR FILTRATION RATE 50.8 (>56); POTASSIUM SERUM 3.8 MEQ/L (3.5-5.1); TOTAL PROTEIN 7.5 GM/DL (6.4-8.2)
[2018-03-27 20:28] LABS: HEMATOCRIT 25.3 % (42.0-52.0); HEMOGLOBIN 7.6 g/dl (13.5-17.5); MEAN CORPUSCULAR HEMOGLOBIN 29.5 pg (27.0-33.0); MEAN CORPUSCULAR VOLUME 98.1 fl (80.0-96.0); RED BLOOD COUNT 2.58 10^6/uL (4.30-6.10)
[2018-03-27 20:41] LABS: INR 1.32; PROTHROMBIN TIME 16.6 SECONDS (12.1-14.4)
[2018-03-27 20:44] LABS: PLATELET COUNT, AUTOMATED 28 10^3/uL (150-450)
== END ==
LOC: M SFHCPLAZ 15:56
PROVIDERS: ATTEND Obstetrics & Gynecology
DX: K70.31 Alcoholic cirrhosis of liver with ascites (principal)

== ENCOUNTER → 2018-04-01 | Outpatient (REF) | payer MEDICARE | LOC: M LABDRAWP 14:50 | PROVIDERS: ATTEND Family Medicine | DX: K70.30 Alcoholic cirrhosis of liver without ascites (principal) | CPT/HCPCS: 36415; 86850; 86900; 86901; 86920; G0463 ==

== ENCOUNTER → 2018-04-03 | Outpatient (CLI) | payer MEDICARE | LOC: M LAB 12:14 | PROVIDERS: ATTEND Family Medicine | DX: D64.9 Anemia, unspecified (principal) ==

== ENCOUNTER 2018-04-04 08:11 | Outpatient (CLI) | payer MEDICARE ==
[~2018-04-04] VITALS: Ht 167.6 cm; Wt 77.3 kg
[2018-04-04 08:15] VITALS: BP 135/62
[2018-04-04 08:45] VITALS: BP 133/64
[2018-04-04 10:47] VITALS: BP 169/77
== END 2018-04-04 10:40 | disposition home or self-care (01) ==
LOC: M INFU 08:11
PROVIDERS: ATTEND Family Medicine
DX: D64.9 Anemia, unspecified (principal); D69.6 Thrombocytopenia, unspecified; K70.30 Alcoholic cirrhosis of liver without ascites; Z88.0 Allergy status to penicillin; J30.2 Other seasonal allergic rhinitis
CPT/HCPCS: 36430; P9016

== ENCOUNTER → 2018-04-29 | Outpatient (REF) | payer MEDICARE ==
[2018-04-29 20:11] LABS: BASO # 0.1 10^3/uL (0.0-0.2); BASO % 1.1 % (0.0-1.0); HEMATOCRIT 26.7 % (42.0-52.0); LYMPH # 0.9 10^3/uL (1.5-4.5); LYMPH % 14.4 % (24.0-44.0); MEAN CORPUSCULAR HEMOGLOBIN 29.4 pg (27.0-33.0); MEAN CORPUSCULAR VOLUME 98.2 fl (80.0-96.0); MONO # 0.6 10^3/uL (0.0-0.8); MONO % 9.3 % (0.0-5.0); NEUTROPHILS # 4.8 10^3/uL (1.8-7.7); NEUTROPHILS % 74.3 % (36.0-66.0); RED BLOOD COUNT 2.72 10^6/uL (4.30-6.10); WHITE BLOOD COUNT 6.4 10^3/uL (4.0-10.0)
[2018-04-29 20:34] LABS: ALBUMIN 2.3 GM/DL (3.2-5.2); BILIRUBIN,TOTAL 5.4 MG/DL (0.2-1.0); CALCIUM LEVEL 10.4 MG/DL (8.5-10.1); CREATININE FOR GFR 1.45 MG/DL (0.70-1.30); GLOMERULAR FILTRATION RATE 54.4 (>56); PLATELET COUNT, AUTOMATED 28 10^3/uL (150-450); POTASSIUM SERUM 4.2 MEQ/L (3.5-5.1); TOTAL PROTEIN 7.1 GM/DL (6.4-8.2)
== END ==
LOC: M SFHCPLAZ 16:28
PROVIDERS: ATTEND Student in an Organized Health Care Education/Training Program
DX: R60.0 Localized edema (principal); R06.02 Shortness of breath

== ENCOUNTER → 2018-05-02 | Outpatient (CLI) | payer MEDICARE ==
--- NOTE | 2018-05-02 16:19 | REP ---
Chest one-view HISTORY: Cirrhosis Comparison: 02/20/2017 The lungs are clear. The heart is normal in size. The pulmonary vasculature is normal in appearance. Impression: No acute disease. Electronically Signed by Dale Delgado MD 05/02/2018 04:11 P
== END ==
LOC: M SMT 14:29
PROVIDERS: ATTEND Family Medicine
DX: K70.30 Alcoholic cirrhosis of liver without ascites (principal)

== ENCOUNTER 2018-05-12 17:52 | Inpatient (IN) | payer MEDICARE ==
[~2018-05-12] VITALS: Ht 167.6 cm; Wt 75.6 kg
[~2018-05-12 17:52] MED LIST changes: -/ESOM40CA OR; -/ONDA4TA PO; -/PANT40TA PO; +CEFT1INJ65 IV; -CEFT2VL IV; -HYDR1CR TOP; +HYDR1CRE93 TOP; +NEXI1CAP3 OR; +ONDA-1 PO; +PROT1TAB2 PO
[2018-05-12] MEDS ORDERED: ACAM0.05 (18:08)
[2018-05-12] MEDS ORDERED: SPIR100T3 (18:08)
[2018-05-12 20:26] LABS: BASO % 0.8 % (0.0-1.0); HEMATOCRIT 25.5 % (42.0-52.0); HEMOGLOBIN 7.4 g/dl (13.5-17.5); LYMPH # 0.4 10^3/uL (1.5-4.5); LYMPH % 10.7 % (24.0-44.0); MEAN CORPUSCULAR HEMOGLOBIN 30.1 pg (27.0-33.0); MEAN CORPUSCULAR VOLUME 103.7 fl (80.0-96.0); MONO # 0.4 10^3/uL (0.0-0.8); MONO % 9.6 % (0.0-5.0); NEUTROPHILS # 2.9 10^3/uL (1.8-7.7); NEUTROPHILS % 78.4 % (36.0-66.0); RED BLOOD COUNT 2.46 10^6/uL (4.30-6.10); WHITE BLOOD COUNT 3.7 10^3/uL (4.0-10.0)
[2018-05-12 20:29] LABS: PLATELET COUNT, AUTOMATED 26 10^3/uL (150-450)
[2018-05-12 20:42] LABS: INR 1.56; PROTHROMBIN TIME 18.9 SECONDS (12.1-14.4)
[2018-05-12 20:43] LABS: PARTIAL THROMBOPLASTIN TIME 34.2 SECONDS (25.4-37.6)
[2018-05-12 20:49] LABS: ALBUMIN 2.5 GM/DL (3.2-5.2); ALT/SGPT 38 U/L (12-78); BILIRUBIN,DIRECT 5.6 MG/DL (0.0-0.2); BLOOD UREA NITROGEN 24 MG/DL (7-18); CALCIUM LEVEL 10.8 MG/DL (8.5-10.1); CARBON DIOXIDE LEVEL 16 MEQ/L (21-32); CHLORIDE LEVEL 97 MEQ/L (98-107); CPK CREATINE PHOSPHOKINASE 32 U/L (39-308); CREATININE FOR GFR 1.54 MG/DL (0.70-1.30); ETHYL ALCOHOL (ETHANOL) < 0.003 % (0.000-0.010); GLOMERULAR FILTRATION RATE 50.8 (>56); GLUCOSE, FASTING 433 MG/DL (70-100); LIPASE 144 U/L (73-393); MB/CK RELATIVE INDEX 6.25 (< OR =4); POTASSIUM SERUM 4.7 MEQ/L (3.5-5.1); SODIUM LEVEL 131 MEQ/L (136-145); TOTAL PROTEIN 7.8 GM/DL (6.4-8.2); TROPONIN I < 0.02 NG/ML (< 0.10)
[2018-05-12 21:47] LABS: VENOUS BASE EXCESS -10.8 (-2.0-2.0); VENOUS HCO3 14.7 MEQ/L (23.0-27.0); VENOUS O2 SATURATION 61.1 % (60.0-80.0); VENOUS PARTIAL PRESSURE CO2 30.9 mmHg (38.0-50.0); VENOUS PH 7.294 UNITS (7.330-7.430); VENOUS STANDARD HCO3 15.3 MEQ/L; VENOUS TOTAL CO2 15.6 MEQ/L (24.0-28.0)
[2018-05-12 21:52] LABS: ACETONE/KETONE > 46.00 MG/DL (<2.81)
[2018-05-12] MEDS ORDERED: NS 1,000 ML IV ONE (22:15)
--- NOTE | 2018-05-12 22:19 | REP ---
Clinical: Weakness . Comparison: 05/02/2018 . Findings: The mediastinum and cardiac silhouette are stable and within normal limits for portable technique. The lung andrew demonstrate chronic changes without acute consolidation, effusion, or pneumothorax. Skeletal structures are intact. Impression: No acute cardiopulmonary process appreciated. Electronically Signed by Sadi Uriarte MD 05/12/2018 10:10 P
[2018-05-12] MEDS ORDERED: INSULIN HUMAN REGULAR 100 UNITS in NS 99 ML IV SCH ×2 (22:59→23:04)
[2018-05-12] MEDS ORDERED: INSULIN IV RATE CHANGE DOCUMENTATION ML/HR XX SCH (23:00)
[2018-05-12] MEDS ORDERED: ACAM0.05 PO (23:37)
[2018-05-12] MEDS ORDERED: FURO40TA2 PO (23:39)
[2018-05-12] MEDS ORDERED: ALBU83IN INH (23:40)
[2018-05-12] MEDS ORDERED: PROAAER10 INH (23:40)
[2018-05-13] VITALS (18 sets, daily range): BP systolic 90–158; BP diastolic 51–88
[2018-05-13] MEDS ORDERED: INSULIN HUMAN REGULAR 100 UNITS in NS 99 ML IV SCH ×4
[2018-05-13] MEDS ORDERED: INSULIN IV RATE CHANGE DOCUMENTATION ML/HR XX SCH ×2
[2018-05-13] MEDS ORDERED: D5W/0.45% SODIUM CHLORIDE 1,000 ML IV SCH (00:01)
[2018-05-13] MEDS ORDERED: IPRATROPIUM 0.5MG/ALBUTEROL 2.5MG INH SOL UD 3ML (DUONEB)(J7620) NEB PRN (00:15)
[2018-05-13] MEDS ORDERED: LORazepam 2 MG TAB PO PRN (00:15)
[2018-05-13] MEDS ORDERED: ONDANSETRON 4MG/2ML VIAL (J2405) IV PRN (00:15)
[2018-05-13 00:37] LABS: MAGNESIUM LEVEL 1.4 MG/DL (1.8-2.4); PERCENT SATURATION 41.3 % (19.7-50.0)
[2018-05-13 00:51] LABS: HEMOGLOBIN A1c 10.5 %
[2018-05-13] MEDS ORDERED: POTASSIUM CHLORIDE INJ 10 MEQ in NS 1,000 ML IV SCH (01:00)
[2018-05-13 01:30] LABS: CALCIUM LEVEL 9.7 MG/DL (8.5-10.1); CREATININE FOR GFR 1.38 MG/DL (0.70-1.30); GLOMERULAR FILTRATION RATE 57.6 (>56)
[2018-05-13] MEDS: MAG SULF 1GM/100ML (MAG RUN) 1 GM in APPROPRIATE DILUENT 1 EA IV SCH ×2 (03:43→05:18)
[2018-05-13 04:30] LABS: BLOOD UREA NITROGEN 21 MG/DL (7-18); CALCIUM LEVEL 9.6 MG/DL (8.5-10.1); CARBON DIOXIDE LEVEL 20 MEQ/L (21-32); CHLORIDE LEVEL 105 MEQ/L (98-107); CREATININE FOR GFR 1.28 MG/DL (0.70-1.30); GLOMERULAR FILTRATION RATE > 60.0 (>56); GLUCOSE, FASTING 234 MG/DL (70-100); POTASSIUM SERUM 3.5 MEQ/L (3.5-5.1); SODIUM LEVEL 136 MEQ/L (136-145)
[2018-05-13] MEDS ORDERED: KCL 40MEQ IN D5/0.45NS 1000ML 1,000 ML IV SCH (05:45)
[2018-05-13 09:00] LABS: BLOOD UREA NITROGEN 19 MG/DL (7-18); CALCIUM LEVEL 9.7 MG/DL (8.5-10.1); CARBON DIOXIDE LEVEL 22 MEQ/L (21-32); CHLORIDE LEVEL 105 MEQ/L (98-107); CREATININE FOR GFR 1.26 MG/DL (0.70-1.30); GLOMERULAR FILTRATION RATE > 60.0 (>56); GLUCOSE, FASTING 169 MG/DL (70-100); POTASSIUM SERUM 3.4 MEQ/L (3.5-5.1); SODIUM LEVEL 136 MEQ/L (136-145)
[2018-05-13] MEDS ORDERED: MAG SULF 1GM/100ML (MAG RUN) 1 GM in APPROPRIATE DILUENT 1 EA IV ONE (09:00)
[2018-05-13] MEDS: FOLIC ACID 1 MG TAB PO SCH (09:35)
[2018-05-13] MEDS: THIAMINE 100 MG TAB PO SCH ×2 (09:35→21:43)
[2018-05-13] MEDS: SUCRALFATE SUSP 1GM/10ML UD PO SCH ×2 (09:35→21:43)
[2018-05-13] MEDS: MULTIVITAMINS/MINERALS THERAP 1 TAB PO SCH (09:35)
[2018-05-13] MEDS: NADOLOL 20MG TABLET PO SCH (09:36)
[2018-05-13] MEDS: PANTOPRAZOLE 40MG TAB (PROTONIX) PO SCH (09:36)
[2018-05-13] MEDS: LEVEMIR (INSULIN DETEMIR) 1 UNITS/0.01ML SC SCH ×2 (09:36→21:43)
[2018-05-13] MEDS ORDERED: GLUCAGON FOR INJ 1 MG VIAL (J1610) SC PRN (11:15)
[2018-05-13] MEDS ORDERED: DEXTROSE 50% 50 ML SYRINGE IV PRN (11:15)
[2018-05-13] MEDS ORDERED: GLUCOSE 4 GM CHEW TABLET PO PRN (11:15)
[2018-05-13] MEDS: HumaLOG INSULIN (NovoLOG) PER UNIT SC SCH ×3 (12:48→21:00)
[2018-05-13 14:27] LABS: HEMATOCRIT 26.9 % (42.0-52.0); HEMOGLOBIN 8.4 g/dl (13.5-17.5); MEAN CORPUSCULAR HEMOGLOBIN 30.3 pg (27.0-33.0); MEAN CORPUSCULAR HGB CONC 31.2 g/dl (32.0-36.5); MEAN CORPUSCULAR VOLUME 97.1 fl (80.0-96.0); RED BLOOD COUNT 2.77 10^6/uL (4.30-6.10); WHITE BLOOD COUNT 3.1 10^3/uL (4.0-10.0)
[2018-05-13 14:34] LABS: PLATELET COUNT, AUTOMATED 22 10^3/uL (150-450)
[2018-05-13 14:45] LABS: BLOOD UREA NITROGEN 17 MG/DL (7-18); CALCIUM LEVEL 9.4 MG/DL (8.5-10.1); CARBON DIOXIDE LEVEL 22 MEQ/L (21-32); CHLORIDE LEVEL 103 MEQ/L (98-107); CREATININE FOR GFR 1.17 MG/DL (0.70-1.30); GLOMERULAR FILTRATION RATE > 60.0 (>56); GLUCOSE, FASTING 142 MG/DL (70-100); MAGNESIUM LEVEL 1.9 MG/DL (1.8-2.4); POTASSIUM SERUM 3.5 MEQ/L (3.5-5.1); SODIUM LEVEL 133 MEQ/L (136-145)
--- NOTE | 2018-05-13 16:49 | HPE ---
DATE OF ADMISSION: 05/13/2018 CHIEF COMPLAINT: Generalized weakness. HISTORY OF PRESENT ILLNESS (HPI): The patient is a 52-year-old male with significant past medical history of ETOH cirrhosis with varices. He is status post banding, follows with Dr. Lopez, insulin-dependent diabetes, gastroesophageal reflux disease (GERD), asthma, chronic pulmonary obstructive disease (COPD), hypertension and hyperlipidemia. He presents to the emergency room complaining of generalized weakness. He denies cough, chest pain, shortness of breath, fever or chills. He states he is recently getting over a upper respiratory infection (URI) about 10 days ago. He was also recently prescribed acamprosate by one of the residents in the clinic; however, he was not able to fill it for the past three days. He denies any abdominal pain, constipation, diarrhea, nausea, vomiting, polyuria or polydipsia. On admission he is noticed to be in diabetic ketoacidosis (DKA). He is pancytopenic likely secondary to liver disease. His hemoglobin is 7.4, baseline hemoglobin around 8. He does not appear to be actively bleeding. He denies any hematemesis. He denies any melena. He denies any hematochezia. He denies any diarrhea as well. PAST MEDICAL HISTORY: See HPI. PAST SURGICAL HISTORY: 1. Rotator cuff surgery. 2. Banding. HOME MEDICATIONS: - acamprosate - albuterol - Tums - Lasix - magnesium - multivitamin - thiamine - nadolol - Carafate SOCIAL HISTORY: He denies tobacco or illicit drug use. He states his last drink was two days ago. He drinks daily for many years, he says he drinks 2-3 beers on a daily basis. He denies a history of intravenous (IV) drug use but he has a history of endocarditis in the past and a murmur on admission about 10-12 years ago. ALLERGIES: NO KNOWN DRUG ALLERGIES. FAMILY HISTORY: Diabetes type 1 in his great grandmother and Parkinson's. REVIEW OF SYSTEMS: A 12-point review of systems was completed all of which were negative except those listed the HPI. VITAL SIGNS ON ADMISSION: Temperature 99.6, pulse 105, respirations 17, satting 96% on room air, blood pressure 174/84. PHYSICAL EXAMINATION: GENERAL: Well nourished in no apparent distress. HEAD: Normocephalic atraumatic. EYES: Extraocular movements are intact. Pupils equal, round, and reactive to light. NECK: Supple, no jugular venous pulse (JVP). LUNGS: Clear to auscultation, no crackles, wheezes, rales or rhonchi. CARDIOVASCULAR: He has a grade 2/6 murmur at the left lower sternal border. Regular rate and rhythm. ABDOMEN: Soft, nontender, nondistended, positive bowel sounds, no rebound or guarding. EXTREMITIES: No edema or calf tenderness. SKIN: Jaundiced. He has scleral icterus. NEUROLOGICAL: Awake, alert and oriented times three, no focal deficit appreciated in the exam. No tremors of the tongue or the outstretched extremities. LABS AND IMAGING COMPLETED IN THE EMERGENCY ROOM: White count 3.7, hemoglobin 7, hematocrit 25, platelet count of 26. MCV 103. COAG: INR 1.56. Blood gas: pH 7.294. Complete metabolic profile (CMP) shows sodium of 131, chloride 97, bicarbonate 16, anion gap of 18, BUN 24, creatinine 1.54, baseline creatinine 1.44, lactate of 2.2. Glucose on the basic metabolic panel (BMP) 433, glucose on the fingerstick 392. Liver function tests: Total bilirubin (T-bili) 8, direct bilirubin 5.6, AST 64, Alkaline phosphatase 244, troponins are negative. Chest x-ray shows no acute disease. ASSESSMENT AND PLAN: 1. Diabetic ketoacidosis (DKA): This is likely secondary to medication noncompliance. He does admit to missing his insulin for one day and not clear if it is multiple days but he states that he only missed it for one day. Will send a urinalysis (UA) tests for any infection. Chest x-ray is unremarkable. He does not appear to be toxic. Will place him on an insulin drip as per protocol, normal saline with 10 of K. Fingersticks every hour, basic metabolic panel every four hours. Will change the D5 1/2 at 90 when the fingersticks drop below 200 if the patient still remains in DKA, once he is out of DKA, would bridge accordingly and allow the patient to eat. The patient will need diabetic teaching, will also send a hemoglobin A1c. 2. Alcoholic cirrhosis. He is not currently decompensated. Will hold Lasix in the setting of DKA while he is being hydrated. 3. ETOH abuse. Will place him on a Clinical [place] Withdrawal Assessment (CIWA) protocol. Will hold acamprosate for now. 4. Gastroesophageal reflux disease. Will continue to use Carafate. 5. History of chronic pulmonary obstructive disease asthma, stable, will continue DuoNebs as needed. 6. Alcohol abuse. Will continue thiamine, folic acid, multivitamin. 7. Prophylactics for his varices. Will continue nadolol. 8. Pancytopenia, anemia. He does not appear to be actively bleeding at this time. Will send stool for occult blood. Will continue Carafate. Will continue to trend his hemoglobin, will do every 12 for now. If any signs of bleeding the patient can likely be placed on octreotide, proton pump inhibitor twice a day and gastrointestinal be consulted. However, this is around his baseline hemoglobin, will transfuse if hemoglobin falls below 7. Will send an anemia profile.
--- NOTE | 2018-05-13 17:46 | IPNPDOC ---
Text Note Date of Service The patient was seen on 05/13/18. NOTE S: Pt examined at bedside in ICU. He states that he has felt fatigued over the past couple of days and thus has not taken his medications. He also admits to dark tarry stools over the past couple of days, but states he has had similar episodes in the past due to his cirrhosis and varices. He states his last alcoholic drink was 2 days ago. This morning, he feels slightly better after received 1 unit PRBC thus far, with a rise in hemoglobin from 6.9 to 7.1. No f monse or chills. He continues on insulin drip this morning to which she is responding well. PE: General: NAD, A&O, resting comfortably HEENT: NCAT, PERRLA, EOMI, scleral icterus present, pale conjunctiva, dry mucous membrane CV: RRR, 2/6 systolic murmur heard best on the left second intercostal space, no radiation RESP: CTAB, no w/r/r/ ABD: soft, NT, ND. 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 DKA in setting of IDDM 2 * Likely 2/2 noncompliance, as he admits to not taking his medication over the past couple of days due to fatigue. Concern of A1c of 10.5 discussed with patient * His DKA has resolved this morning, he is tolerating diet well. Will bridge him to insulin sliding scale and long-acting insulin * Patient counseled on compliance and importance of taking all his medications Anemia of chronic disease * And likely acute blood loss as well, as he admits to melanotic stools over the past couple of days, which he often gets intermittently due to his varices * Hgb kamila from 6.9-7.1 after 1 unit was transfused. He is due to get another unit transfused later today * Trend H&H q6h. It appears his baseline Hgb's around 8. 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 Lopez for possible rescoping. Last EGD and colonoscopy were done 2017 revealing esophageal and anorectal varices & portal hypertension gastropathy. These are also likely the source of his bleed currently Thrombocytopenia * Related to pancytopenia. Platelets are in the 20s, likely 2/2 end-stage liver disease * We'll continue to trend. Currently he is hemodynamically stable and not actively bleeding. Will consider platelet transfusion should his levels drop further EtOH cirrhosis with esophageal and anorectal varices & Portal HTN Gastropathy * S/P banding with Dr. Lopez * Patient continues to drink alcohol, 2-3 beers per day. He states his last drink was 2 days ago and that he is aiming to be sober for 6 months that he can get liver transplant * Continue nadolol for varices * Home Lasix & Spironolactone on hold given he is requiring active fluid resuscitation. BP WNL Alcohol abuse * See above * On CIWA protocol, thiamine folate multivitamin * Home acamprosate on hold GERD Continue Carafate & Protonix Asthma/COPD Stable. RA at baseline. DuoNeb prn Hx of subacute bacterial endocarditis stable, no signs of infection DVT PPX: TEDs SCDs, avoid AC 2/2 thrombocytopenia DISPO: pending clinical improvement VS,Robe, I+O VS, Danielbone, I+O Laboratory Tests 05/12/18 20:09 Red Blood Count 2.46 L, Mean Corpuscular Volume 103.7 H, Mean Corpuscular Hemoglobin 30.1, Mean Corpuscular Hemoglobin Concent 29.0 L, Red Cell Distribution Width 18.7 H, Neutrophils (%) (Auto) 78.4 H, Lymphocytes (%) (Auto) 10.7 L, Monocytes (%) (Auto) 9.6 H, Eosinophils (%) (Auto) 0.0, Basophils (%) (Auto) 0.8, Neutrophils # (Auto) 2.9, Lymphocytes # (Auto) 0.4 L, Monocytes # (Auto) 0.4, Eosinophils # (Auto) 0.0, Basophils # (Auto) 0.0 05/13/18 00:57 Calcium Level 9.7 05/13/18 04:05 Calcium Level 9.6 05/13/18 08:25 Calcium Level 9.7 05/13/18 14:04 Red Blood Count 2.77 L, Mean Corpuscular Volume 97.1 H, Mean Corpuscular Hemoglobin 30.3, Mean Corpuscular Hemoglobin Concent 31.2 L, Red Cell Distribution Width 19.2 H, Calcium Level 9.4 Vital Signs Date Time Temp Pulse Resp B/P (MAP) Pulse Ox O2 Delivery O2 Flow Rate FiO2 05/13/18 15:00 67 20 114/58 (76) 92 05/13/18 13:30 97.8 1.0 05/13/18 02:29 Nasal Cannula I&O- Last 24 Hours up to 6 AM 05/13/18 06:00 Intake Total 1300 ml Output Total 0 ml Balance 1300 ml GME ATTESTATION GME ATTESTATION My faculty preceptor for this patient encounter was physically present during the encounter and was fully available. All aspects of the patient interview, examination, medical decision making process, and medical care plan development were reviewed and approved by the faculty preceptor. The faculty preceptor is aware and concurs with the plan as stated in the body of this note and will attest to such by his/her cosignature. DARNELL HAILE DO May 13, 2018 17:46
[2018-05-13 21:34] LABS: APPEARANCE, URINE HAZY (CLEAR); BACTERIA, URINE AUTO NEGATIVE (NEGATIVE); BILIRUBIN, URINE AUTO 1+ (NEGATIVE); BLOOD, URINE BLOOD 2+ (NEGATIVE); COLOR, URINE AMBER (YELLOW); GLUCOSE, URINE (UA) AUTO 2+ mg/dL (NEGATIVE); KETONE, URINE AUTO TRACE mg/dL (NEGATIVE); LEUKOCYTE ESTERASE, URINE AUTO NEGATIVE (NEGATIVE); MUCUS, URINE SMALL (NEGATIVE); NITRITE, URINE AUTO NEGATIVE (NEGATIVE); PROTEIN, URINE AUTO 1+ mg/dL (NEGATIVE); RBC, URINE AUTO 23 /HPF (0-3); SPECIFIC GRAVITY URINE AUTO 1.016 (1.002-1.035); SQUAMOUS EPITHELIAL CELL UR AU 0 /HPF (0-6); WBC, URINE AUTO 1 /HPF (0-3)
--- NOTE | 2018-05-13 21:59 | ECGEPIP ---
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
[2018-05-14] VITALS (7 sets, daily range): BP systolic 91–140; BP diastolic 48–70
[2018-05-14 04:47] LABS: HEMATOCRIT 27.5 % (42.0-52.0); HEMOGLOBIN 8.6 g/dl (13.5-17.5); MEAN CORPUSCULAR HGB CONC 31.3 g/dl (32.0-36.5); MEAN CORPUSCULAR VOLUME 95.8 fl (80.0-96.0); RED BLOOD COUNT 2.87 10^6/uL (4.30-6.10); WHITE BLOOD COUNT 3.3 10^3/uL (4.0-10.0)
[2018-05-14 04:52] LABS: PLATELET COUNT, AUTOMATED 23 10^3/uL (150-450)
[2018-05-14 05:09] LABS: BLOOD UREA NITROGEN 17 MG/DL (7-18); CARBON DIOXIDE LEVEL 22 MEQ/L (21-32); CHLORIDE LEVEL 104 MEQ/L (98-107); CREATININE FOR GFR 1.24 MG/DL (0.70-1.30); GLOMERULAR FILTRATION RATE > 60.0 (>56); GLUCOSE, FASTING 188 MG/DL (70-100); MAGNESIUM LEVEL 1.5 MG/DL (1.8-2.4); PHOSPHORUS LEVEL 1.4 MG/DL (2.5-4.9); POTASSIUM SERUM 3.6 MEQ/L (3.5-5.1); SODIUM LEVEL 134 MEQ/L (136-145)
[2018-05-14] MEDS: MAG SULF 1GM/100ML (MAG RUN) 1 GM in APPROPRIATE DILUENT 1 EA IV SCH ×2 (06:28→07:44)
[2018-05-14] MEDS ORDERED: K-PHOS ORIGINAL (POT.ACID PHOSPHATE) 500MG TAB PO ONE (08:00)
[2018-05-14] MEDS: SUCRALFATE SUSP 1GM/10ML UD PO SCH ×2 (08:13→21:30)
[2018-05-14] MEDS: NADOLOL 20MG TABLET PO SCH (08:16)
[2018-05-14] MEDS: LEVEMIR (INSULIN DETEMIR) 1 UNITS/0.01ML SC SCH ×2 (08:17→21:31)
[2018-05-14] MEDS: FOLIC ACID 1 MG TAB PO SCH (08:17)
[2018-05-14] MEDS: FUROSEMIDE 40 MG TAB PO SCH (08:18)
[2018-05-14] MEDS: MULTIVITAMINS/MINERALS THERAP 1 TAB PO SCH (08:18)
[2018-05-14] MEDS: PANTOPRAZOLE 40MG TAB (PROTONIX) PO SCH (08:18)
[2018-05-14] MEDS: THIAMINE 100 MG TAB PO SCH ×2 (08:18→21:30)
[2018-05-14] MEDS: HumaLOG INSULIN (NovoLOG) PER UNIT SC SCH ×4 (08:19→21:31)
--- NOTE | 2018-05-14 17:47 | IPNPDOC ---
Text Note Date of Service The patient was seen on 05/14/18. NOTE S: Pt examined at bedside. No issues overnight. He states he feels almost back to his normal. H&H remain stable s/p 2U PRBC transfused. Is tolerating diet well and off insulin drip. States his fatigue is better too. States he still had dark tarry stool yesterday, for which fecal occult was negative. Denies abd pain or cramping or changes in bowel habits. PE: General: NAD, A&O, resting comfortably Telemetry: no arrhythmias overnight HEENT: NCAT, PERRLA, EOMI, scleral icterus present, pale conjunctiva, dry mucous membrane CV: RRR, 2/6 systolic murmur heard best on the left second intercostal space, no radiation, S2 splitting present RESP: CTAB, no w/r/r/ ABD: soft, NT, ND. 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 Anemia of chronic disease * Likely 2/2 cirrhotic liver and admitted noncompliance. Anemia w/u WNL * Although patient admits to chronically having melanotic stools intermittently, Fecal occult was negative * s/p 2U PRBC, now back to his baseline Hgb 8-9. Continue monitoring blood levels and transfuse as needed to maintain hgb>8 * Last EGD and colonoscopy were done 2017 revealing esophageal and anorectal varices & portal hypertension gastropathy. He'll need to continue following up outpatient with his PCP and GI. Currently there is no overt bleeding DKA in setting of IDDM 2 * 2/2 noncompliance. Resolved S/P insulin drip * Blood sugars are now better controlled. His A1c on admission was 10.5. He's been counseled in depth on importance of compliance Fatigue * Is essentially resolved this morning, likely 2/2 DKA and severe anemia with Hgb 6.9 on admission * He feels almost back to his normal self today Thrombocytopenia * Related to chronic pancytopenia. Platelets are in the 20s, likely 2/2 end- stage liver disease * Continue to trend. Remains hemodynamically stable and not actively bleeding. Monitor EtOH cirrhosis with esophageal and rectal varices & Portal HTN Gastropathy * S/P banding with Dr. Lopez * Patient continues to drink alcohol 2-3 beers per day. He states his last drink was 2 days prior to admission and that he is aiming to be sober for 6 months so that he can get liver transplant. * Continue nadolol for varices * On Lasix & Spironolactone Alcohol abuse * See above. Patient counseled on alcohol abstinence * On CIWA protocol, thiamine folate multivitamin. No signs of withdrawal * Home acamprosate on hold Hypomagnesemia and hypophosphatemia * Supplemented. Patient asymptomatic GERD Continue Carafate & Protonix Asthma/COPD Stable. RA at baseline. DuoNeb prn Hx of subacute bacterial endocarditis stable, no signs of infection DVT PPX: TEDs SCDs, avoid AC 2/2 thrombocytopenia DISPO: monitor blood levels. Likely dc home tomorrow VS,Fishbone, I+O VS, Fishbone, I+O Laboratory Tests 05/13/18 14:04 Red Blood Count 2.77 L, Mean Corpuscular Volume 97.1 H, Mean Corpuscular Hemoglobin 30.3, Mean Corpuscular Hemoglobin Concent 31.2 L, Red Cell Distribution Width 19.2 H, Calcium Level 9.4 05/14/18 04:20 Red Blood Count 2.87 L, Mean Corpuscular Volume 95.8, Mean Corpuscular Hemoglobin 30.0, Mean Corpuscular Hemoglobin Concent 31.3 L, Red Cell Distribution Width 20.1 H, Calcium Level 9.0 Vital Signs Date Time Temp Pulse Resp B/P (MAP) Pulse Ox O2 Delivery O2 Flow Rate FiO2 05/14/18 08:16 63 118/57 05/14/18 04:00 98.9 18 98 1.0 05/13/18 02:29 Nasal Cannula I&O- Last 24 Hours up to 6 AM 05/14/18 06:00 Intake Total 2406 ml Output Total 1050 ml Balance 1356 ml GME ATTESTATION GME ATTESTATION My faculty preceptor for this patient encounter was physically present during the encounter and was fully available. All aspects of the patient interview, examination, medical decision making process, and medical care plan development were reviewed and approved by the faculty preceptor. The faculty preceptor is aware and concurs with the plan as stated in the body of this note and will attest to such by his/her cosignature. DARNELL HAILE DO May 14, 2018 09:21
[2018-05-15 06:00] VITALS: BP_SYST 108; BP_DIAS 49; BP_DIAS 59
[2018-05-15 06:27] LABS: HEMATOCRIT 26.2 % (42.0-52.0); HEMOGLOBIN 8.3 g/dl (13.5-17.5); MEAN CORPUSCULAR HGB CONC 31.7 g/dl (32.0-36.5); MEAN CORPUSCULAR VOLUME 94.6 fl (80.0-96.0); RED BLOOD COUNT 2.77 10^6/uL (4.30-6.10); WHITE BLOOD COUNT 3.3 10^3/uL (4.0-10.0)
[2018-05-15 06:32] LABS: PLATELET COUNT, AUTOMATED 31 10^3/uL (150-450)
[2018-05-15 06:47] LABS: CALCIUM LEVEL 9.3 MG/DL (8.5-10.1); CREATININE FOR GFR 1.34 MG/DL (0.70-1.30); GLOMERULAR FILTRATION RATE 59.6 (>56); POTASSIUM SERUM 3.5 MEQ/L (3.5-5.1)
[2018-05-15 08:31] LABS: MAGNESIUM LEVEL 1.5 MG/DL (1.8-2.4); PHOSPHORUS LEVEL 2.2 MG/DL (2.5-4.9)
[2018-05-15] MEDS: FOLIC ACID 1 MG TAB PO SCH (08:37)
[2018-05-15] MEDS: MULTIVITAMINS/MINERALS THERAP 1 TAB PO SCH (08:37)
[2018-05-15] MEDS: SUCRALFATE SUSP 1GM/10ML UD PO SCH (08:37)
[2018-05-15] MEDS: PANTOPRAZOLE 40MG TAB (PROTONIX) PO SCH (08:37)
[2018-05-15] MEDS: THIAMINE 100 MG TAB PO SCH (08:37)
[2018-05-15] MEDS: FUROSEMIDE 40 MG TAB PO SCH ×2 (08:37→09:00)
[2018-05-15] MEDS: HumaLOG INSULIN (NovoLOG) PER UNIT SC SCH ×3 (08:38→17:27)
[2018-05-15] MEDS: LEVEMIR (INSULIN DETEMIR) 1 UNITS/0.01ML SC SCH (08:38)
[2018-05-15 09:00] VITALS: BP 98/56
[2018-05-15] MEDS ORDERED: SPIRONOLACTONE 50 MG TAB PO SCH (09:00)
[2018-05-15] MEDS: NADOLOL 20MG TABLET PO SCH (09:00)
[2018-05-15] MEDS ORDERED: FOLI1TAB11 PO (09:42)
[2018-05-15] MEDS ORDERED: MAGNESIUM OXIDE 400 MG TAB (MAG-OX) PO ONE (10:00)
[2018-05-15] MEDS ORDERED: K-PHOS ORIGINAL (POT.ACID PHOSPHATE) 500MG TAB PO ONE (11:00)
[2018-05-15 12:33] LABS: HEMATOCRIT 26.8 % (42.0-52.0); HEMOGLOBIN 8.4 g/dl (13.5-17.5)
[2018-05-15 14:00] VITALS: BP 116/61
--- NOTE | 2018-05-16 13:59 | DS.PDOC ---
Discharge Summary General Date of Admission May 13, 2018 at 00:01 Date of Discharge 05/15/18 Attending Physician: GINO BOYCE MD Discharge Summary PROCEDURES PERFORMED DURING STAY: 2U PRBC transfused ADMITTING DIAGNOSES: 1. fatigue & generalized weakness DISCHARGE DIAGNOSES: 1. Mild DKA 2/2 noncompliance 2. Anemia Hgb 6.9, in the setting of anemia of chronic disease 3. Hypomagnesemia & hypophosphatemia likely 2/2 DKA Uncontrolled IDDM2, A1c 10.5 Alcoholic cirrhosis with esophageal rectal varices and portal hypertension gastropathy s/p banding with Dr. Lopez 2016 Chronic Pancytopenia 2/2 cirrhosis History of alcohol abuse CKD II-III GERD Asthma/COPD History of subacute bacterial endocarditis COMPLICATIONS/CHIEF COMPLAINT: Anemia; Dka. HISTORY OF PRESENT ILLNESS: 52 yo M brought himself to ER because he felt fatigued over the past couple of days and thus also missed most of his medication doses. He also admits to dark tarry stools over the past couple of days, but states he has had similar episodes in the past due to his cirrhosis and varices. He states his last alcoholic drink was 2 days prior to admission. On admission, he was found to have a Hgb 7.1, below his normal of 8, and also mild ketoacidosis. HOSPITAL COURSE: He was admitted to ICU on insulin drip per DKA protocol, and also transfused 2U, to which he responded well, Hgb kamila to his baseline. His fecal occult was negative, and his H&H remained stable. This was likely a slow drop in his Hgb 2/2 noncompliance of meds and his longstanding cirrhosis with varices. He was no longer in DKA, and transitioned off the drip and to sc insulin, tolerating diet well, and overall feeling better. His blood levels were monitored and remained stable, and he stated he felt back to his normal self. Hi s A1c check this admission was 10.5, aPt was counseled on importance of compliance, and he agreed to be better and also that his goal was to be sober 6 months so he may get on a liver transplant list. Throughout his stay, he did not show signs of alcohol withdrawal and overall did well. He was discharged home to f/u with PCP within 1 week and return to ER for emergency. He was discharged on MVI, folate, thiamine, and resumed on his acamprosate. Of note, he was found to be hypomagnesemic and hypophosphatemic during stay, supplemented, but still low on d/c. He has been recommended to f/u o/p. DISCHARGE MEDICATIONS: Please see below. ALLERGIES: Please see below. PHYSICAL EXAMINATION ON DISCHARGE: VITAL SIGNS: Please see below. General: NAD, A&O, resting comfortably HEENT: NCAT, PERRLA, EOMI, scleral icterus present, pale conjunctiva, moist mucous membrane CV: RRR, 2/6 systolic murmur heard best on the left second intercostal space, no radiation, S2 splitting present RESP: CTAB, no w/r/r/ ABD: soft, NT, ND. Benign EXTREMITIES: 2+ radial pulses b/l, able to move all extremities, 1+ pitting edema bilaterally SKIN: Jaundiced throughout, less pale-appearing, no visible lesions or rashes NEURO: no focal deficits, fully conversant & coherent, no tremors LABORATORY DATA: Please see below. IMAGIN05/12/2018 CXR: No acute cardiopulmonary process appreciated. PROGNOSIS: poor long-term ACTIVITY: As tolerated. DIET: consistent carb, 2g sodium, 1800cc restriction DISPOSITION: home DISCHARGE INSTRUCTIONS: 1. Follow-up with PCP within a week 2. Return to ER for emergency DISCHARGE CONDITION: Stable. TIME SPENT ON DISCHARGE: Greater than 35 minutes. Vital Signs/I&Os Vital Signs Date Time Temp Pulse Resp B/P (MAP) Pulse Ox O2 Delivery O2 Flow Rate FiO2 05/15/18 14:00 98.1 65 20 116/61 (79) 96 05/14/18 08:00 1.0 05/13/18 02:29 Nasal Cannula I&O- Last 24 Hours up to 6 AM 05/16/18 06:00 Intake Total 180 ml Output Total 0 ml Balance 180 ml Laboratory Data Labs 24H Laboratory Tests 2 05/15/18 16:52: Bedside Glucose (Misc Panel) 176H 05/16/18 10:15: Lab Scanned Report Transfusion Record FSBS Laboratory Tests Test 05/15/18 16:52 Range/Units Bedside Glucose (Misc Panel) 176 70-105 MG/DL Microbiology Microbiology 05/12/18 Blood Culture - Preliminary, Resulted No Growth after 72 hours. All specime... 05/12/18 Blood Culture - Preliminary, Resulted No Growth after 72 hours. All specime... 05/13/18 Stool Occult Blood (RASHAAD) - Final, Complete 05/13/18 MRSA Screen - Final, Complete Discharge Medications Scheduled Acamprosate Calcium (Acamprosate Calcium Dr) 333 Mg Tab, 666 MG PO TID, (Repo rted) HAS NOT STARTED YET Folic Acid (Folic Acid) 1 Mg Tab, 1 MG PO DAILY Furosemide (Furosemide) 40 Mg Tab, 40 MG PO DAILY, (Reported) Magnesium Oxide (Magnesium Oxide) 400 Mg Tab, 400 MG PO DAILY, (Reported) Multivitamins *[facility] STOCKED* (Thera M Plus *[facility] STOCKED*) 1 Tab Tab, 1 TAB PO DAILY, (Reported) Nadolol (Nadolol) 40 Mg Tab, 40 MG PO DAILY, (Reported) Sucralfate (Carafate) 1 Gm/10 Ml Maria G, 10 ML PO BID, (Reported) Thiamine HCl (Thiamine HCl) 100 Mg Tab, 100 MG PO DAILY, (Reported) Scheduled PRN Albuterol Sulfate (Proair Hfa) 108 Mcg/Act Aer, 2 PUFF INH Q4H PRN for SHORTNESS OF BREATH, (Reported) Albuterol Sulfate (Albuterol Sulfate) 2.5 Mg/3 Ml Nebu, 2.5 MG INH QID PRN for SHORTNESS OF BREATH, (Reported) Allergies Coded Allergies: ENVIROMENTAL (Verified Allergy, Unknown, 09/12/11) GME ATTESTATION GME ATTESTATION My faculty preceptor for this patient encounter was physically present during the encounter and was fully available. All aspects of the patient interview, examination, medical decision making process, and medical care plan development were reviewed and approved by the faculty preceptor. The faculty preceptor is aware and concurs with the plan as stated in the body of this note and will attest to such by his/her cosignature. DARNELL HAILE DO May 16, 2018 13:59
== END 2018-05-15 17:43 | disposition home health service (06) | DRG 638 ==
LOC: M ED 17:52 → M ED INP 05-13 00:01 → M ICU 05-13 02:34 → M MSPAV 05-14 15:40
PROVIDERS: ADMIT Internal Medicine; ATTEND Internal Medicine
PROC: 30233N1 Transfusion of Nonautologous Red Blood Cells into Peripheral Vein, Percutaneous Approach (ICD-10-PCS; principal; 2018-05-13)
DX: E11.10 Type 2 diabetes mellitus with ketoacidosis without coma (principal); K76.6 Portal hypertension; I85.10 Secondary esophageal varices without bleeding; D61.818 Other pancytopenia; E83.42 Hypomagnesemia; J43.9 Emphysema, unspecified; K21.9 Gastro-esophageal reflux disease without esophagitis; N18.3 Chronic kidney disease, stage 3 (moderate); Z91.14 Patient's other noncompliance with medication regimen; E83.39 Other disorders of phosphorus metabolism; D63.1 Anemia in chronic kidney disease; Z79.899 Other long term (current) drug therapy

== ENCOUNTER → 2018-05-19 | Outpatient (REF) | payer MEDICARE, OTHER ==
[~2018-05-19] MED LIST changes: +ACAM0.05; +ACAM0.05 PO; +SPIR100T3
== END ==
LOC: M SFHCPLAZ 10:45
PROVIDERS: ATTEND Internal Medicine
DX: K70.30 Alcoholic cirrhosis of liver without ascites (principal); E11.69 Type 2 diabetes mellitus with other specified complication; Z53.8 Procedure and treatment not carried out for other reasons

== ENCOUNTER 2018-07-26 17:13 | Inpatient (IN) | payer MEDICARE, OTHER ==
[~2018-07-26] VITALS: Ht 167.6 cm; Wt 81.8 kg
[2018-07-26] MEDS ORDERED: SPIR100T3 PO (17:23)
[2018-07-26 18:27] LABS: BASO % 1.3 % (0.0-1.0); EOS # 0.1 10^3/uL (0.0-0.50); EOS % 4.7 % (0.0-3.0); HEMATOCRIT 22.8 % (42.0-52.0); HEMOGLOBIN 7.3 g/dl (13.5-17.5); LYMPH # 0.7 10^3/uL (1.5-4.5); LYMPH % 28.3 % (24.0-44.0); MEAN CORPUSCULAR HEMOGLOBIN 32.6 pg (27.0-33.0); MEAN CORPUSCULAR VOLUME 101.8 fl (80.0-96.0); MONO # 0.3 10^3/uL (0.0-0.8); MONO % 11.2 % (0.0-5.0); NEUTROPHILS # 1.3 10^3/uL (1.8-7.7); NEUTROPHILS % 54.1 % (36.0-66.0); RED BLOOD COUNT 2.24 10^6/uL (4.30-6.10); WHITE BLOOD COUNT 2.3 10^3/uL (4.0-10.0)
[2018-07-26 18:35] LABS: INR 1.51; PROTHROMBIN TIME 18.4 SECONDS (12.1-14.4)
[2018-07-26 18:36] LABS: PARTIAL THROMBOPLASTIN TIME 41.2 SECONDS (25.4-37.6); PLATELET COUNT, AUTOMATED 16 10^3/uL (150-450)
[2018-07-26 19:01] LABS: ALBUMIN 2.3 GM/DL (3.2-5.2); ALT/SGPT 29 U/L (12-78); BILIRUBIN,DIRECT 3.1 MG/DL (0.0-0.2); BILIRUBIN,TOTAL 4.1 MG/DL (0.2-1.0); BLOOD UREA NITROGEN 18 MG/DL (7-18); CALCIUM LEVEL 8.3 MG/DL (8.5-10.1); CARBON DIOXIDE LEVEL 19 MEQ/L (21-32); CHLORIDE LEVEL 112 MEQ/L (98-107); CREATININE FOR GFR 1.02 MG/DL (0.70-1.30); GLOMERULAR FILTRATION RATE > 60.0 (>56); GLUCOSE, FASTING 135 MG/DL (70-100); POTASSIUM SERUM 4.1 MEQ/L (3.5-5.1); SODIUM LEVEL 141 MEQ/L (136-145); TOTAL PROTEIN 6.1 GM/DL (6.4-8.2)
--- NOTE | 2018-07-26 19:23 | REPVR ---
EXAM: CT Maxillofacial Without Contrast EXAM DATE/TIME: 07/26/2018 6:20 PM CLINICAL HISTORY: 52 years old, male; Injury or trauma; Fall; Initial encounter; Blunt trauma (contusions or hematomas); Nose; Additional info: Fell/ ? nasal fracture TECHNIQUE: Imaging protocol: Axial computed tomography images of the face without intravenous contrast. Coronal and sagittal reformatted images were created and reviewed. Radiation optimization: All CT scans at this facility use at least one of these dose optimization techniques: automated exposure control; mA and/or kV adjustment per patient size (includes targeted exams where dose is matched to clinical indication); or iterative reconstruction. COMPARISON: CT Maxilofacial w/out contrast 01/06/2017 7:02 PM FINDINGS: Orbits: No acute intraorbital abnormality. Globes are unremarkable. Mastoid air cells: Opacified left mastoid air cells consistent with mastoiditis. Sinuses: Inflammatory changes in both maxillary sinuses. Bones/joints: Contour abnormality anterior nasal bones consistent with an impacted fracture, age-indeterminate. Soft tissues: No significant facial soft tissue swelling. IMPRESSION: 1. Contour abnormality anterior nasal bones consistent with an impacted fracture, age-indeterminate. 2. Opacified left mastoid air cells consistent with mastoiditis. Electronically signed by: Rob German On 07/26/2018 19:23:25 PM
[2018-07-26] MEDS ORDERED: FOLI1TAB11 PO (20:12)
[2018-07-26] MEDS ORDERED: GLUCAGON FOR INJ 1 MG VIAL (J1610) SC PRN (20:15)
[2018-07-26] MEDS ORDERED: GLUCOSE 4 GM CHEW TABLET PO PRN (20:15)
[2018-07-26] MEDS ORDERED: EPINEPHrine 1MG/ML INJ 30ML MD-VIAL IR ONE (20:15)
[2018-07-26] MEDS ORDERED: DEXTROSE 50% 50 ML SYRINGE IV PRN (20:15)
[2018-07-26] MEDS ORDERED: VANCOMYCIN HCL 1,000 MG, VIAL MATE ADAPTER 1 EACH in D5W 250 ML IV ONE (20:15)
[2018-07-26] MEDS ORDERED: LANTINJ4 SC ×2 (20:15)
--- NOTE | 2018-07-26 20:40 | HPEPDOC ---
General Date of Admission 07/27/2018 Date of Service: Jul 26, 2018 Attending Physician: MAMIE AGUILAR MD Chief Complaint The patient is a 52-year-old male admitted with a reason for visit of Nose Bleed. History of Present Illness Patient is a 52-year-old male, past medical history significant for advanced liver cirrhosis due to alcohol abuse, diabetes mellitus, insulin-dependent, trauma cytopenia due to advanced liver disease, presenting to the emergency room on account of nosebleed. Patient states last night he fell after losing his balance. He noticed he was bleeding from his left nostril but managed to stop the bleeding. This morning the bleeding recurred and he was unable to stop it and decided to come to the emergency room. Initial evaluation in the emergency room by CT showed mastoiditis, nasal fracture, trombocytopenia with a platelet count of 16. Hemoglobin count was also low at 7.3. ENT specialist was called for intervention. At time of evaluation was still being expected to evaluate patient and help stop the bleeding. Patient denied any shortness of breath, wheezing, chest pain, weakness, chills, fever. Home Medications Scheduled Acamprosate Calcium (Acamprosate Calcium) 333 Mg Tab, 666 MG PO TID, (Reported) Albuterol Sulf (Albuterol Sulfate) 2.5 Mg/3 Ml Nebu, 1 INH INH QID, (Reported) Folic Acid (Folic Acid) 1 Mg Tablet, 1 MG PO DAILY, (Reported) Furosemide (Furosemide) 40 Mg Tab, 40 MG PO DAILY, (Reported) Magnesium Oxide (Magnesium Oxide) 400 Mg Tab, 400 MG PO DAILY, (Reported) Multivitamins (Thera M Plus Tablet) 1 Tab Tab, 1 TAB PO DAILY, (Reported) Nadolol (Nadolol) 40 Mg Tab, 40 MG PO DAILY, (Reported) Spironolactone (Spironolactone) 100 Mg Tablet, 100 MG PO DAILY, (Reported) Sucralfate (Carafate) 1 Gm/10 Ml Maria G, 10 ML PO BID, (Reported) Scheduled PRN Albuterol Sulfate (Proair Hfa) 108 Mcg/Act Aer, 2 PUFF INH Q4H PRN for SHORTNESS OF BREATH, (Reported) Allergies Coded Allergies: ENVIROMENTAL (Verified Allergy, Unknown, 09/12/11) Past Medical History Medical History Liver cirrhosis Hypertension Hyperlipidemia Diabetes mellitus, insulin-dependent. GERD COPD Alcohol abuse Pancytopenia Surgical History Right rotator cuff repair Variceal Banding Family History Father: Hypertension Mother: Hypertension Social History * Smoker: Denies Alcohol: heavy Drugs: denies A-FIB/CHADSVASC A-FIB History Current/History of A-Fib/PAF?: No Current PO Anticoag Therapy: No Review of Systems Other systems A 10 point pertinent review of systems was completed, negative except as stated in the history of presenting illness. Physical Examination Other physical findings GENERAL: NAD SKIN : nasal bridge contusion with dried blood HEENT: sceleral icterus, swollen nasal bridge with dried blood, normocephalic, moist mucous membrane CARDIOVASCULAR: Regular rate and rhythm, tachycardic, no JVD, BLE 3+ edema, distal pulses not palpable RESP: CTAB, no accessory muscle use noted ABDOMEN: BS+ non distended non tender MS: no joint deformities NEURO: Alert and oriented x 3, CN2-12 grossly intact PSYCH: no anxiety or agitation, appropriate mood and affect. Vital Signs Vital Signs Date Time Temp Pulse Resp B/P (MAP) Pulse Ox O2 Delivery O2 Flow Rate FiO2 07/26/18 19:06 97.9 93 18 131/63 (85) 96 Room Air Laboratory Data Labs 24H Laboratory Tests 2 07/26/18 18:10: Immature Granulocyte % (Auto) 0.4, White Blood Count 2.3L, Red Blood Count 2.24L, Hemoglobin 7.3L, Hematocrit 22.8L, Mean Corpuscular Volume 101.8H, Mean Corpuscular Hemoglobin 32.6, Mean Corpuscular Hemoglobin Concent 32.0, Red Cell Distribution Width 17.9H, Platelet Count 16*L, Neutrophils (%) (Auto) 54.1, Lymphocytes (%) (Auto) 28.3, Monocytes (%) (Auto) 11.2H, Eosinophils (%) (Auto) 4.7H, Basophils (%) (Auto) 1.3H, Neutrophils # (Auto) 1.3L, Lymphocytes # (Auto) 0.7L, Monocytes # (Auto) 0.3, Eosinophils # (Auto) 0.1, Basophils # (Auto) 0.0, Nucleated Red Blood Cells % (auto) 0.0, Immature Platelet Fraction 1.9, Prothrombin Time 18.4H, Prothromb Time International Ratio 1.51, Activated Partial Thromboplast Time 41.2H, Anion Gap 10, Glomerular Filtration Rate > 60.0, Calcium Level 8.3L, Aspartate Amino Transf (AST/SGOT) 90H, Alanine Aminotransferase (ALT/SGPT) 29, Alkaline Phosphatase 167H, Total Bilirubin 4.1H, Direct Bilirubin 3.1H, Total Protein 6.1L, Albumin 2.3L, Albumin/Globulin Ratio 0.61L CBC/BMP Laboratory Tests 07/26/18 18:10 Red Blood Count 2.24 L, Mean Corpuscular Volume 101.8 H, Mean Corpuscular Hemoglobin 32.6, Mean Corpuscular Hemoglobin Concent 32.0, Red Cell Distribution Width 17.9 H, Neutrophils (%) (Auto) 54.1, Lymphocytes (%) (Auto) 28.3, Monocytes (%) (Auto) 11.2 H, Eosinophils (%) (Auto) 4.7 H, Basophils (%) (Auto) 1.3 H, Neutrophils # (Auto) 1.3 L, Lymphocytes # (Auto) 0.7 L, Monocytes # (Auto) 0.3, Eosinophils # (Auto) 0.1, Basophils # (Auto) 0.0 Assessment/Plan Nasal Fracture -s/p fall with nasal hemorrhage -Dr Carias-ENT has been notified and will be evaluating patient for nasal packing if indicated Mastoiditis -seen on CT imaging study -patient has had prior nasal fracture-possibly due to impaired drainage -defer to ENT for management if drainage indicated -start on empiric antibiotic therapy with vanc and cefepime Throbocytopenia -type/cross, transfuse 1 unit FFP -monitor for signs and symptoms of bleeding -repeat transfusion if needed to stop bleeding DM insulin dependent -fingerstick checks ACHS -continue on home insulin regimen -calorie controlled diet Liver Cirrhosis -advanced, due to alcohol abuse with pancytopenia -avoid all worsening hepatotoxic medications -Hgb is stable and at patients baseline S/P fall -multiple episodes with repeat nasal fracture -PT/OT evaluation for rehabilitation potential DVT prophylaxis -TEDs with SCD due to underlying thrombocytopenia Plan / VTE VTE Prophylaxis Ordered?: Yes DALIA AG Jul 26, 2018 20:40
[2018-07-26] MEDS ORDERED: LIDOCAINE W/EPINEPHRINE 1% 20ML VIAL As Ordered ONE (20:42)
[2018-07-26] MEDS ORDERED: ALBUTEROL 90 MCG/ACT 8GM HFA INHALER INH PRN (21:00)
[2018-07-26 23:50] VITALS: BP 147/80
[2018-07-27] MEDS: LEVEMIR (INSULIN DETEMIR) 1 UNITS/0.01ML SC SCH ×3 (00:34→21:00)
[2018-07-27] MEDS: SUCRALFATE SUSP 1GM/10ML UD PO SCH ×3 (00:38→22:56)
[2018-07-27] MEDS: ACAMPROSATE CALCIUM 333 MG TABLET (CAMPRAL) PO SCH ×4 (01:28→22:56)
[2018-07-27] MEDS: CEFEPIME HCL 1 GM in D5W MINI-BAG PLUS 50 ML IV SCH ×3 (01:29→16:58)
[2018-07-27 02:00] VITALS: BP 136/77
[2018-07-27] MEDS: VANCOMYCIN HCL 1,000 MG, VIAL MATE ADAPTER 1 EACH in D5W 250 ML IV SCH ×2 (02:27→15:51)
[2018-07-27 06:00] VITALS: BP 165/78
--- NOTE | 2018-07-27 06:03 | PHACANCOPD ---
PHARMACY VANCOMYCIN DOSING Pt Demographics Demographics Patient Age:52 , Weight:81.800 , Gender: male Adjusted Body Weight Date: 07/27/18, Adjusted Body Weight: [71.6] Kg Vancomycin Vancomycin indication: MASTOIDITIS Vancomycin Target Ranges: 10-20 mcg/ml Vancomycin Load Y/N: Yes Load Dose Date Time Vancomycin Load Dose: 2GM Date: 07/26 Time: 12&0100 Vancomycin Dose Date: 07/27/18. Current Vancomycin Dose: [1 GM Q12H] Intermittent Dosing?: No Labs Labs Laboratory Tests 07/26/18 18:10 Red Blood Count 2.24 L, Mean Corpuscular Volume 101.8 H, Mean Corpuscular Hemoglobin 32.6, Mean Corpuscular Hemoglobin Concent 32.0, Red Cell Distribution Width 17.9 H, Neutrophils (%) (Auto) 54.1, Lymphocytes (%) (Auto) 28.3, Monocytes (%) (Auto) 11.2 H, Eosinophils (%) (Auto) 4.7 H, Basophils (%) (Auto) 1.3 H, Neutrophils # (Auto) 1.3 L, Lymphocytes # (Auto) 0.7 L, Monocytes # (Auto) 0.3, Eosinophils # (Auto) 0.1, Basophils # (Auto) 0.0 Creatinine Clearance Date:07/27/18. Creatinine Clearance: [85.8].CALCULATED Assessment and Plan Maintaining Current Dose?: Yes Reason for dose change: No Dose Change Pharmacist Note Pharmacist Note Date: 07/27/18. Pharmacist note:[id number] ADMITTED W/MASTOIDTIS.SCR=1.02,CRCL=85.8.PATIENT TO RECEIVE CEFEPME 1 GM IV Q8H AND PHARMACY DOSED VANCOMYCIN.Vancomycin 1 gm in 07/16@2345 ,additional 1 gm@0100-then to begin scheduled regimen of 1 gram q12h.First trough is scheduled for 07/26@12 mid-will continue to follow labs ARNIE ROSS PHARMACY Jul 27, 2018 06:03
[2018-07-27] MEDS: ALBUTEROL SULFATE 2.5 MG/0.5 ML INH NEB SOLN INH SCH ×4 (07:21→20:00)
[2018-07-27 07:30] LABS: HEMATOCRIT 18.7 % (42.0-52.0); MEAN CORPUSCULAR HEMOGLOBIN 32.6 pg (27.0-33.0); MEAN CORPUSCULAR HGB CONC 31.6 g/dl (32.0-36.5); MEAN CORPUSCULAR VOLUME 103.3 fl (80.0-96.0); RED BLOOD COUNT 1.81 10^6/uL (4.30-6.10)
[2018-07-27 07:33] LABS: PLATELET COUNT, AUTOMATED 23 10^3/uL (150-450)
[2018-07-27 07:35] LABS: HEMOGLOBIN 5.9 g/dl (13.5-17.5)
[2018-07-27 07:59] LABS: ALBUMIN 2.3 GM/DL (3.2-5.2); ALT/SGPT 26 U/L (12-78); BILIRUBIN,TOTAL 4.1 MG/DL (0.2-1.0); BLOOD UREA NITROGEN 24 MG/DL (7-18); CALCIUM LEVEL 8.4 MG/DL (8.5-10.1); CARBON DIOXIDE LEVEL 20 MEQ/L (21-32); CHLORIDE LEVEL 111 MEQ/L (98-107); CREATININE FOR GFR 1.01 MG/DL (0.70-1.30); GLOMERULAR FILTRATION RATE > 60.0 (>56); GLUCOSE, FASTING 164 MG/DL (70-100); MAGNESIUM LEVEL 1.2 MG/DL (1.8-2.4); POTASSIUM SERUM 3.8 MEQ/L (3.5-5.1); SODIUM LEVEL 141 MEQ/L (136-145); TOTAL PROTEIN 5.9 GM/DL (6.4-8.2)
[2018-07-27] MEDS: FOLIC ACID 1 MG TAB PO SCH (08:37)
[2018-07-27] MEDS: MULTIVITAMINS/MINERALS THERAP 1 TAB PO SCH (08:37)
[2018-07-27] MEDS: FUROSEMIDE 40 MG TAB PO SCH (08:37)
[2018-07-27] MEDS: SPIRONOLACTONE 50 MG TAB PO SCH (08:37)
[2018-07-27] MEDS: NADOLOL 20MG TABLET PO SCH (08:37)
[2018-07-27] MEDS: HumaLOG INSULIN (NovoLOG) PER UNIT SC SCH ×5 (08:38→21:00)
[2018-07-27] MEDS: MAGNESIUM OXIDE 400 MG TAB (MAG-OX) PO SCH (08:38)
[2018-07-27 10:00] VITALS: BP 145/78
[2018-07-27] MEDS: MAG SULF 1GM/100ML (MAG RUN) 1 GM in APPROPRIATE DILUENT 1 EA IV SCH ×2 (12:16→14:24)
[2018-07-27 14:00] VITALS: BP 155/65
--- NOTE | 2018-07-27 14:54 | IPNPDOC ---
Date Seen The patient was seen on 07/27/18. Progress Note SUBJECTIVE: Patient tells me that his nose is still bleeding, he can feel it draining down the back of his throat is making him nauseous and he feels full from having swallowed so much blood. He tells me that he was not drunk while he fell that he tripped while getting up at 1 AM in the dark from a mattress on the floor trying to make his way to the restroom otherwise patient denies chest delicia n, shortness breath, fevers, chills OBJECTIVE PHYSICAL EXAMINATION: VITAL SIGNS: Please see below. GENERAL: Pleasant disheveled morbidly obese man lying flat in bed awake alert oriented speaking in complete sentences no acute distress, stigmata of chronic liver disease HEENT: Moist mucous membranes mild elevation in CVP CARDIOVASCULAR: S1 S2 regular no additional heart sounds appreciated. RESPIRATORY: Clear to auscultation bilaterally. ABDOMINAL: Bowel sounds present abdomen soft and nontender, With medusa EXTREMITIES: No clubbing cyanosis trace edema NEUROLOGICAL: Spontaneously moves all 4 extremities cranial 2 through 12 grossly intact no gross focal deficits appreciated PSYCHOLOGICAL: Appropriate LABORATORY DATA, MICROBIOLOGY: Please see below. IMAGING STUDIES: Maxillofacial CT:1. Contour abnormality anterior nasal bones consistent with an impacted fracture, age-indeterminate. 2. Opacified left mastoid air cells consistent with mastoiditis ASSESSMENT AND PLAN: This is a 52-year-old man with epistaxis and nasal bone fracture in the setting of liver cirrhosis. PROBLEMS: 1. Epistaxis with nasal bone fracture secondary to trauma in the setting of liver cirrhosis: ENT has evaluated the patient yesterday evening and packed his nose. Given that his platelets are still below 50 is hemoglobin has dropped this morning there appears to be bright red blood on tissue is next to him and he reports active drainage and bleeding I will have ENT revisit the patient this morning they have agreed to see him today. I will continue to transfuse with a goal platelets greater than 50 and a hemoglobin greater than 7. He remains on empiric cefepime 2. Pancytopenia: Secondary to alcoholic liver cirrhosis. 3. liver cirrhosis: Secondary to alcohol abuse. Continue with folic acid furosemide atenolol spironolactone. No evidence of asterixis on exam. Still actively drinking not a transplant candidate meld score indicates 6% 3 month mortality 4. Diabetes: Sliding scale insulin consistent carb diet. 5. Fall: Denies being intoxicated when he fell PTOT consult placed with attempting to ambulate in the dark on a messy floor from a mattress on the floor DVT prophylaxis: Sequentials teds no pharmacological agents in the setting of th rombocytopenia and active bleeding DISPOSITION: Pending clinical improvement. VS, I&O, 24H, Fishbone Vital Signs/I&O Vital Signs Date Time Temp Pulse Resp B/P (MAP) Pulse Ox O2 Delivery O2 Flow Rate FiO2 07/27/18 14:00 97.7 100 19 155/65 (95) 94 07/26/18 22:00 Room Air I&O- Last 24 Hours up to 6 AM 07/27/18 06:00 Intake Total 150 ml Balance 150 ml Laboratory Data 24H LABS Laboratory Tests 2 07/26/18 18:10: Immature Granulocyte % (Auto) 0.4, White Blood Count 2.3L, Red Blood Count 2.24L, Hemoglobin 7.3L, Hematocrit 22.8L, Mean Corpuscular Volume 101.8H, Mean Corpuscular Hemoglobin 32.6, Mean Corpuscular Hemoglobin Concent 32.0, Red Cell Distribution Width 17.9H, Platelet Count 16*L, Neutrophils (%) (Auto) 54.1, Lymphocytes (%) (Auto) 28.3, Monocytes (%) (Auto) 11.2H, Eosinophils (%) (Auto) 4.7H, Basophils (%) (Auto) 1.3H, Neutrophils # (Auto) 1.3L, Lymphocytes # (Auto) 0.7L, Monocytes # (Auto) 0.3, Eosinophils # (Auto) 0.1, Basophils # (Auto) 0.0, Nucleated Red Blood Cells % (auto) 0.0, Immature Platelet Fraction 1.9, Prothrombin Time 18.4H, Prothromb Time International Ratio 1.51, Activated Partial Thromboplast Time 41.2H, Anion Gap 10, Glomerular Filtration Rate > 60.0, Calcium Level 8.3L, Aspartate Amino Transf (AST/SGOT) 90H, Alanine Aminotransferase (ALT/SGPT) 29, Alkaline Phosphatase 167H, Total Bilirubin 4.1H, Direct Bilirubin 3.1H, Total Protein 6.1L, Albumin 2.3L, Albumin/Globulin Ratio 0.61L 07/26/18 23:57: Bedside Glucose (Misc Panel) 117H 07/27/18 07:15: Nucleated Red Blood Cells % (auto) 0.0, Anion Gap 10, Glomerular Filtration Rate > 60.0, Calcium Level 8.4L, Aspartate Amino Transf (AST/SGOT) 73H, Alanine Aminotransferase (ALT/SGPT) 26, Alkaline Phosphatase 135H, Total Bilirubin 4.1H, Total Protein 5.9L, Albumin 2.3L, Albumin/Globulin Ratio 0.64L, Blood Urea Nitrogen 24H, Creatinine 1.01, Sodium Level 141, Potassium Level 3.8, Chloride Level 111H, Carbon Dioxide Level 20L, Magnesium Level 1.2L 07/27/18 12:09: Bedside Glucose (Misc Panel) 145H CBC/BMP Laboratory Tests 07/26/18 18:10 Red Blood Count 2.24 L, Mean Corpuscular Volume 101.8 H, Mean Corpuscular Hemoglobin 32.6, Mean Corpuscular Hemoglobin Concent 32.0, Red Cell Distribution Width 17.9 H, Neutrophils (%) (Auto) 54.1, Lymphocytes (%) (Auto) 28.3, Monocytes (%) (Auto) 11.2 H, Eosinophils (%) (Auto) 4.7 H, Basophils (%) (Auto) 1.3 H, Neutrophils # (Auto) 1.3 L, Lymphocytes # (Auto) 0.7 L, Monocytes # (Auto) 0.3, Eosinophils # (Auto) 0.1, Basophils # (Auto) 0.0 07/27/18 07:15 Red Blood Count 1.81 L, Mean Corpuscular Volume 103.3 H, Mean Corpuscular Hemoglobin 32.6, Mean Corpuscular Hemoglobin Concent 31.6 L, Red Cell Distribution Width 17.8 H, Calcium Level 8.4 L, Aspartate Amino Transf (AST/SGOT) 73 H, Alanine Aminotransferase (ALT/SGPT) 26, Alkaline Phosphatase 135 H, Total Bilirubin 4.1 H, Total Protein 5.9 L, Albumin 2.3 L ZACH PORTER MD Jul 27, 2018 14:54
--- NOTE | 2018-07-27 16:22 | CR ---
DATE OF CONSULTATION: 07/26/2018 Will is a 52-year-old gentleman who presents with a history of epistaxis. The patient has a history of alcoholism and anemia and thrombocytopenia. The patient developed bleeding after a fall and fracturing his nose. The patient has continued to bleed despite measures to stop it. The patient is not on an anticoagulant. PHYSICAL EXAMINATION: The patient is alert and oriented. He is somewhat tremulous. He has a history of alcoholism. I examined his nose. There is bleeding anterior distal area and superiorly on the left side. I prepared the nose with Lidocaine and epinephrine. I used pledgets of adrenaline 1:100,000. I did cauterize his nose, but there was still bleeding. It was my impression that his bleeding was mainly related to his thrombocytopenia. Platelet count was 16,000. I packed his nose anteriorly on that left side. The bleeding therefore stopped. Oropharynx was clear. The patient is being transfused platelets and fresh frozen plasma. This should correct his bleeding problem. I will follow him.
[2018-07-27 18:14] LABS: HEMATOCRIT 24.2 % (42.0-52.0); MEAN CORPUSCULAR HGB CONC 32.6 g/dl (32.0-36.5); RED BLOOD COUNT 2.47 10^6/uL (4.30-6.10); WHITE BLOOD COUNT 3.4 10^3/uL (4.0-10.0)
[2018-07-27 18:22] LABS: HEMOGLOBIN 7.9 g/dl (13.5-17.5); PLATELET COUNT, AUTOMATED 45 10^3/uL (150-450)
[2018-07-27 22:00] VITALS: BP 137/75
[2018-07-28] MEDS: CEFEPIME HCL 1 GM in D5W MINI-BAG PLUS 50 ML IV SCH ×3 (01:44→16:16)
[2018-07-28 02:00] VITALS: BP 124/61
[2018-07-28] MEDS: VANCOMYCIN HCL 1,000 MG, VIAL MATE ADAPTER 1 EACH in D5W 250 ML IV SCH ×2 (04:48→23:05)
--- NOTE | 2018-07-28 05:13 | PHACANCOPD ---
PHARMACY VANCOMYCIN DOSING Pt Demographics Demographics Patient Age:52 , Weight:81.800 , Gender: male Adjusted Body Weight Date: 07/27/18, Adjusted Body Weight: [71.6] Kg Vancomycin Vancomycin indication: MASTOIDITIS Vancomycin Target Ranges: 10-20 mcg/ml Vancomycin Load Y/N: Yes Load Dose Date Time Vancomycin Load Dose: 2GM Date: 07/26 Time: 12&0100 Vancomycin Dose Date: 07/27/18. Current Vancomycin Dose: [1 GM Q12H] Intermittent Dosing?: No Labs Micro Microbiology 07/27/18 Stool Occult Blood (RASHAAD), Received Pending 07/27/18 Gastrointestinal Tract Panel (PCR), Received Pending Creatinine Clearance Date:07/27/18. Creatinine Clearance: [85.8].CALCULATED Assessment and Plan Maintaining Current Dose?: No Reason for dose change: Trough too high Pharmacist Note Pharmacist Note Date: 07/28/18. Pharmacist note:Vancomycin trough drawn 07/27@23.33 reported as 21.9(trough gial=10-20).Will adjust regimen to 1 gram IV [id number] to begin 07/28@0500. follow up trough will be drawn 07/29@1600-will continue to follow labs Date: 07/27/18. Pharmacist note:52YOM ADMITTED W/MASTOIDTIS.SCR=1.02,CRCL=85.8.PATIENT TO RECEIVE CEFEPME 1 GM IV Q8H AND PHARMACY DOSED VANCOMYCIN.Vancomycin 1 gm in 07/16@2345 ,additional 1 gm@0100-then to begin scheduled regimen of 1 gram q12h.First trough is scheduled for 07/26@12 mid-will continue to follow labs ARNIE ROSS PHARMACY Jul 28, 2018 05:13
[2018-07-28 06:00] VITALS: BP 138/73
[2018-07-28 06:25] LABS: HEMATOCRIT 22.4 % (42.0-52.0); HEMOGLOBIN 7.2 g/dl (13.5-17.5); MEAN CORPUSCULAR HEMOGLOBIN 31.6 pg (27.0-33.0); MEAN CORPUSCULAR HGB CONC 32.1 g/dl (32.0-36.5); MEAN CORPUSCULAR VOLUME 98.2 fl (80.0-96.0); RED BLOOD COUNT 2.28 10^6/uL (4.30-6.10); WHITE BLOOD COUNT 3.2 10^3/uL (4.0-10.0)
[2018-07-28 06:28] LABS: PLATELET COUNT, AUTOMATED 24 10^3/uL (150-450)
[2018-07-28 06:32] LABS: INR 1.63; PROTHROMBIN TIME 19.6 SECONDS (12.1-14.4)
[2018-07-28 06:40] LABS: BLOOD UREA NITROGEN 29 MG/DL (7-18); CALCIUM LEVEL 8.5 MG/DL (8.5-10.1); CARBON DIOXIDE LEVEL 25 MEQ/L (21-32); CHLORIDE LEVEL 108 MEQ/L (98-107); CREATININE FOR GFR 1.06 MG/DL (0.70-1.30); GLOMERULAR FILTRATION RATE > 60.0 (>56); GLUCOSE, FASTING 135 MG/DL (70-100); POTASSIUM SERUM 3.2 MEQ/L (3.5-5.1); SODIUM LEVEL 141 MEQ/L (136-145)
[2018-07-28] MEDS: ALBUTEROL SULFATE 2.5 MG/0.5 ML INH NEB SOLN INH SCH ×4 (07:50→20:00)
[2018-07-28 08:09] LABS: MAGNESIUM LEVEL 1.3 MG/DL (1.8-2.4)
[2018-07-28] MEDS: SPIRONOLACTONE 50 MG TAB PO SCH (08:26)
[2018-07-28] MEDS: FUROSEMIDE 40 MG TAB PO SCH (08:26)
[2018-07-28] MEDS: MAGNESIUM OXIDE 400 MG TAB (MAG-OX) PO SCH (08:26)
[2018-07-28] MEDS: SUCRALFATE SUSP 1GM/10ML UD PO SCH ×2 (08:26→23:04)
[2018-07-28] MEDS: FOLIC ACID 1 MG TAB PO SCH (08:26)
[2018-07-28] MEDS: MULTIVITAMINS/MINERALS THERAP 1 TAB PO SCH (08:26)
[2018-07-28] MEDS: HumaLOG INSULIN (NovoLOG) PER UNIT SC SCH ×4 (08:27→21:00)
[2018-07-28] MEDS: LEVEMIR (INSULIN DETEMIR) 1 UNITS/0.01ML SC SCH ×2 (08:28→21:00)
[2018-07-28] MEDS: ACAMPROSATE CALCIUM 333 MG TABLET (CAMPRAL) PO SCH ×3 (08:32→23:04)
[2018-07-28] MEDS: NADOLOL 20MG TABLET PO SCH (08:36)
[2018-07-28 10:00] VITALS: BP 113/59
[2018-07-28] MEDS: MAG SULF 1GM/100ML (MAG RUN) 1 GM in APPROPRIATE DILUENT 1 EA IV SCH ×2 (10:57→12:35)
--- NOTE | 2018-07-28 12:46 | IPNPDOC ---
Date Seen The patient was seen on 07/28/18. Progress Note SUBJECTIVE: Patient tells me that his nose is still bleeding but much less. He can feel a little in the back of his throat at time but no blood draining from his nares. otherwise patient denies chest pain, shortness breath, fevers, chills OBJECTIVE PHYSICAL EXAMINATION: VITAL SIGNS: Please see below. GENERAL: Pleasant disheveled morbidly obese man sitting in a chair awake alert oriented speaking in complete sentences no acute distress, stigmata of chronic liver disease HEENT: Moist mucous membranes mild elevation in CVP, dried blood around his nares ecchymosis CARDIOVASCULAR: S1 S2 regular no additional heart sounds appreciated. RESPIRATORY: Clear to auscultation bilaterally. ABDOMINAL: Bowel sounds present abdomen soft and nontender, With caput medusa EXTREMITIES: No clubbing cyanosis trace edema NEUROLOGICAL: Spontaneously moves all 4 extremities cranial 2 through 12 grossly intact no gross focal deficits appreciated PSYCHOLOGICAL: Appropriate LABORATORY DATA, MICROBIOLOGY: Please see below. IMAGING STUDIES: Maxillofacial CT:1. Contour abnormality anterior nasal bones consistent with an impacted fracture, age-indeterminate. 2. Opacified left mastoid air cells consistent with mastoiditis ASSESSMENT AND PLAN: This is a 52-year-old man with epistaxis and nasal bone fracture in the setting of liver cirrhosis. PROBLEMS: 1. Epistaxis with nasal bone fracture secondary to trauma in the setting of liver cirrhosis: ENT has evaluated the patient and packed his nose. Given that his platelets are still below 50 I will continue to transfuse with a goal platelets greater than 50 and a hemoglobin greater than 7. He remains on empiric cefepime. He does appear improved today. His INR is slightly higher today an as such I will provide 2U FFP also. 2. Pancytopenia: Secondary to alcoholic liver cirrhosis. 3. liver cirrhosis: Secondary to alcohol abuse. Continue with folic acid furosemide atenolol spironolactone. No evidence of asterixis on exam. Still actively drinking not a transplant candidate meld score indicates 6% 3 month mortality 4. Diabetes: Sliding scale insulin consistent carb diet. 5. Fall: Denies being intoxicated when he fell PTOT consult placed with attempting to ambulate in the dark on a messy floor from a mattress on the floor DVT prophylaxis: Sequentials teds no pharmacological agents in the setting of thrombocytopenia and active bleeding DISPOSITION: Pending clinical improvement & PT/OT VS, I&O, 24H, [facility] Vital Signs/I&O Vital Signs Date Time Temp Pulse Resp B/P (MAP) Pulse Ox O2 Delivery O2 Flow Rate FiO2 07/28/18 10:00 98.5 58 20 113/59 (77) 96 07/26/18 22:00 Room Air I&O- Last 24 Hours up to 6 AM 07/28/18 06:00 Intake Total 2237 ml Output Total 550 ml Balance 1687 ml Laboratory Data 24H LABS Laboratory Tests 2 07/27/18 17:08: Bedside Glucose (Misc Panel) 164H 07/27/18 17:55: Nucleated Red Blood Cells % (auto) 0.0 07/27/18 20:30: Bedside Glucose (Misc Panel) 87 07/27/18 23:33: Vancomycin Level Trough 21.9H 07/28/18 05:29: Nucleated Red Blood Cells % (auto) 0.0, Immature Platelet Fraction 3.2, Prothrombin Time 19.6H, Prothromb Time International Ratio 1.63, Anion Gap 8, Glomerular Filtration Rate > 60.0, Blood Urea Nitrogen 29H, Creatinine 1.06, Sodium Level 141, Potassium Level 3.2L, Chloride Level 108H, Carbon Dioxide Level 25, Calcium Level 8.5, Magnesium Level 1.3L 07/28/18 11:43: Bedside Glucose (Misc Panel) 76 CBC/BMP Laboratory Tests 07/27/18 17:55 Red Blood Count 2.47 L, Mean Corpuscular Volume 98.0 H, Mean Corpuscular Hemoglobin 32.0, Mean Corpuscular Hemoglobin Concent 32.6, Red Cell Distribution Width 18.6 H 07/28/18 05:29 Red Blood Count 2.28 L, Mean Corpuscular Volume 98.2 H, Mean Corpuscular Hemoglobin 31.6, Mean Corpuscular Hemoglobin Concent 32.1, Red Cell Distribution Width 19.4 H, Calcium Level 8.5 Microbiology Microbiology 07/27/18 Stool Occult Blood (RASHAAD) - Final, Complete 07/27/18 Gastrointestinal Tract Panel (PCR) - Final, Complete ZACH PORTER MD Jul 28, 2018 12:46
[2018-07-28 14:00] VITALS: BP 138/60
[2018-07-28] MEDS ORDERED: POTASSIUM CHLORIDE 10 MEQ SR TABLET PO ONE (14:00)
[2018-07-28 18:00] VITALS: BP 142/72
[2018-07-28 22:00] VITALS: BP 112/55
[2018-07-28] MEDS ORDERED: LEVEMIR (INSULIN DETEMIR) 1 UNITS/0.01ML SC ONE (22:15)
[2018-07-29] MEDS ORDERED: ONDANSETRON 4MG/2ML VIAL (J2405) IV PRN (00:15)
[2018-07-29] MEDS: CEFEPIME HCL 1 GM in D5W MINI-BAG PLUS 50 ML IV SCH ×2 (00:45→07:52)
[2018-07-29 02:00] VITALS: BP 128/76
[2018-07-29 06:00] VITALS: BP 110/54
[2018-07-29 06:25] LABS: HEMATOCRIT 20.5 % (42.0-52.0); MEAN CORPUSCULAR HEMOGLOBIN 30.9 pg (27.0-33.0); MEAN CORPUSCULAR HGB CONC 31.2 g/dl (32.0-36.5); RED BLOOD COUNT 2.07 10^6/uL (4.30-6.10)
[2018-07-29 06:31] LABS: HEMOGLOBIN 6.4 g/dl (13.5-17.5); PLATELET COUNT, AUTOMATED 26 10^3/uL (150-450)
[2018-07-29 06:35] LABS: INR 1.52; PROTHROMBIN TIME 18.5 SECONDS (12.1-14.4)
[2018-07-29 06:49] LABS: BLOOD UREA NITROGEN 31 MG/DL (7-18); CALCIUM LEVEL 8.9 MG/DL (8.5-10.1); CARBON DIOXIDE LEVEL 25 MEQ/L (21-32); CHLORIDE LEVEL 109 MEQ/L (98-107); CREATININE FOR GFR 1.11 MG/DL (0.70-1.30); GLOMERULAR FILTRATION RATE > 60.0 (>56); GLUCOSE, FASTING 65 MG/DL (70-100); POTASSIUM SERUM 3.4 MEQ/L (3.5-5.1); SODIUM LEVEL 142 MEQ/L (136-145)
[2018-07-29] MEDS: HumaLOG INSULIN (NovoLOG) PER UNIT SC SCH ×4 (07:10→21:00)
[2018-07-29] MEDS: ALBUTEROL SULFATE 2.5 MG/0.5 ML INH NEB SOLN INH SCH ×4 (07:21→20:00)
[2018-07-29] MEDS: SUCRALFATE SUSP 1GM/10ML UD PO SCH ×2 (07:51→22:43)
[2018-07-29] MEDS: FOLIC ACID 1 MG TAB PO SCH (07:54)
[2018-07-29] MEDS: MULTIVITAMINS/MINERALS THERAP 1 TAB PO SCH (07:54)
[2018-07-29] MEDS: ACAMPROSATE CALCIUM 333 MG TABLET (CAMPRAL) PO SCH ×3 (07:54→22:43)
[2018-07-29] MEDS: NADOLOL 20MG TABLET PO SCH (07:54)
[2018-07-29] MEDS: SPIRONOLACTONE 50 MG TAB PO SCH (07:55)
[2018-07-29] MEDS: MAGNESIUM OXIDE 400 MG TAB (MAG-OX) PO SCH (07:55)
[2018-07-29] MEDS: FUROSEMIDE 40 MG TAB PO SCH (07:55)
[2018-07-29] MEDS: LEVEMIR (INSULIN DETEMIR) 1 UNITS/0.01ML SC SCH ×2 (09:00→22:44)
[2018-07-29 10:00] VITALS: BP 120/69
[2018-07-29] MEDS ORDERED: diphenhydrAMINE 25 MG CAP PO ONE (12:30)
[2018-07-29] MEDS ORDERED: ACETAMINOPHEN TAB 650MG DOSE (2X325MG) PO ONE (12:30)
[2018-07-29] MEDS: NS 1,000 ML IV SCH (12:57)
--- NOTE | 2018-07-29 13:36 | IPNPDOC ---
Text Note Date of Service The patient was seen on 07/29/18. NOTE S: patient had nasal packing removed by ENT today. He was admitted because of acute blood loss anemia from epistaxis, worsened by thrombocytopenia due to alcoholic cirrhosis. HE states diarrhea/loose stools resolved. He had been eating extra yogurt for probiotics and is questioning the continued need of antibiotics. He states no N, no V, no signs of DTs. O:vitals as below General: pleasant, NAD, AAOx3 HEENT: inferior nasal bandage in place HRRR LCTA Abdomen soft NT ND NABS A/P: 1. Epistaxis with nasal bone fracture secondary to trauma in the setting of liver cirrhosis: Nasal packing removed by ENT 07/29 D/C antibiotics - no active infeciton . Start probiotics 2. Anemia due to acute bleed (epistaxis). Transfused 3 unit pRBC, 3 FFP and 4 platelets Transfuse 2 unit pRBC 07/29 2. Pancytopenia: Secondary to alcoholic liver cirrhosis. Continuing to transfuse platelets will be unproductive given his cirrhosis. If active ble eding will consider additional FFP or if platelets below 20. 3. liver cirrhosis: Secondary to alcohol abuse. Continue with folic acid furosemide atenolol spironolactone. No evidence of asterixis on exam. Still actively drinking not a transplant candidate meld score indicates 6% 3 month mortality; Continue nadolol for probable varices. If continues to have anemia with no active epistaxis bleeding, then may be GI source. Start PPI and continue carafate. 4. Diabetes: Sliding scale insulin consistent carb diet. 5. Fall: PT/OT consult and no need for further home PT. VS,Danielbone, I+O VS, Fishbone, I+O Laboratory Tests 07/29/18 06:09 Red Blood Count 2.07 L, Mean Corpuscular Volume 99.0 H, Mean Corpuscular Hemoglobin 30.9, Mean Corpuscular Hemoglobin Concent 31.2 L, Red Cell Distribution Width 19.2 H, Calcium Level 8.9 Vital Signs Date Time Temp Pulse Resp B/P (MAP) Pulse Ox O2 Delivery O2 Flow Rate FiO2 07/29/18 10:00 97.6 69 20 120/69 (86) 97 07/26/18 22:00 Room Air I&O- Last 24 Hours up to 6 AM 07/29/18 06:00 Intake Total 3633 ml Balance 3633 ml ALF NAVARRO DO Jul 29, 2018 12:25
[2018-07-29 14:00] VITALS: BP 121/69
[2018-07-29] MEDS: LACTOBACILLUS ACIDOPHILUS CAP (BACID) PO SCH (17:35)
[2018-07-29 18:00] VITALS: BP 143/83
[2018-07-29 22:00] VITALS: BP 143/70
[2018-07-29] MEDS: PANTOPRAZOLE 40MG TAB (PROTONIX) PO SCH (22:43)
[2018-07-30 02:00] VITALS: BP 111/66
[2018-07-30 05:43] LABS: HEMATOCRIT 32.6 % (42.0-52.0); MEAN CORPUSCULAR HEMOGLOBIN 31.1 pg (27.0-33.0); MEAN CORPUSCULAR HGB CONC 31.9 g/dl (32.0-36.5); MEAN CORPUSCULAR VOLUME 97.6 fl (80.0-96.0); RED BLOOD COUNT 3.34 10^6/uL (4.30-6.10); WHITE BLOOD COUNT 5.4 10^3/uL (4.0-10.0)
[2018-07-30 05:46] LABS: HEMOGLOBIN 10.4 g/dl (13.5-17.5); PLATELET COUNT, AUTOMATED 49 10^3/uL (150-450)
[2018-07-30 05:54] LABS: INR 1.4; PROTHROMBIN TIME 17.4 SECONDS (12.1-14.4)
[2018-07-30 06:00] VITALS: BP 153/67
[2018-07-30 06:06] LABS: BLOOD UREA NITROGEN 31 MG/DL (7-18); CALCIUM LEVEL 9.4 MG/DL (8.5-10.1); CARBON DIOXIDE LEVEL 25 MEQ/L (21-32); CHLORIDE LEVEL 108 MEQ/L (98-107); CREATININE FOR GFR 1.24 MG/DL (0.70-1.30); GLOMERULAR FILTRATION RATE > 60.0 (>56); GLUCOSE, FASTING 37 MG/DL (70-100); POTASSIUM SERUM 3.5 MEQ/L (3.5-5.1); SODIUM LEVEL 138 MEQ/L (136-145)
[2018-07-30] MEDS: HumaLOG INSULIN (NovoLOG) PER UNIT SC SCH ×2 (07:30→11:53)
[2018-07-30 08:00] VITALS: BP 127/76
[2018-07-30] MEDS: ALBUTEROL SULFATE 2.5 MG/0.5 ML INH NEB SOLN INH SCH ×2 (08:00→11:56)
[2018-07-30] MEDS: SUCRALFATE SUSP 1GM/10ML UD PO SCH (08:38)
[2018-07-30] MEDS: FOLIC ACID 1 MG TAB PO SCH (08:39)
[2018-07-30] MEDS: MULTIVITAMINS/MINERALS THERAP 1 TAB PO SCH (08:39)
[2018-07-30] MEDS: FUROSEMIDE 40 MG TAB PO SCH (08:39)
[2018-07-30 08:40] VITALS: BP 153/67
[2018-07-30] MEDS: MAGNESIUM OXIDE 400 MG TAB (MAG-OX) PO SCH (08:40)
[2018-07-30] MEDS: ACAMPROSATE CALCIUM 333 MG TABLET (CAMPRAL) PO SCH (08:40)
[2018-07-30] MEDS: NADOLOL 20MG TABLET PO SCH (08:40)
[2018-07-30] MEDS: LACTOBACILLUS ACIDOPHILUS CAP (BACID) PO SCH (08:41)
[2018-07-30] MEDS: PANTOPRAZOLE 40MG TAB (PROTONIX) PO SCH (08:41)
[2018-07-30] MEDS: SPIRONOLACTONE 50 MG TAB PO SCH (08:41)
[2018-07-30 10:00] VITALS: BP 110/60
[2018-07-30] MEDS ORDERED: PANT40TA3 PO (12:20)
[2018-07-30] MEDS: NS 1,000 ML IV SCH (12:23)
--- NOTE | 2018-07-30 12:36 | DS.PDOC ---
Discharge Summary General Date of Admission Jul 26, 2018 at 20:08 Date of Discharge 07/30/18 Primary Care Physician: ERI MILLER MD Attending Physician: ALF NAVARRO DO Specialist/Consultants Involve: HARIKA CARIAS MD Discharge Summary PROCEDURES PERFORMED DURING STAY: 07/26/18 Cauterize nasal bleeding; nasal packing 07/26/18 Transfused 3 unit pRBC, 3 FFP and 4 platelets 07/29/18 Transfuse 2 unit pRBC ADMITTING DIAGNOSES: Nasal Fracture s/p fall with nasal hemorrhage Mastoiditis- asymptomatic and seen on CT Thombocytopenia DM insulin dependent Liver Cirrhosis-advanced, due to alcohol abuse with pancytopenia DISCHARGE DIAGNOSES: 1. Epistaxis with nasal bone fracture secondary to trauma in the setting of liver cirrhosis: 2. Anemia due to acute bleed (epistaxis). 3. Pancytopenia with thrombocytopenia: Secondary to alcoholic liver cirrhosis. 4 Alocholic liver cirrhosis. 5 Diabetes: on mcc insulin with hyperglycemia and hypoglycemia 6. Fall history prior to admission COMPLICATIONS/CHIEF COMPLAINT: Nasal Bleeding. HISTORY OF PRESENT ILLNESS: 52-year-old male, past medical history significant for advanced liver cirrhosis due to alcohol abuse, diabetes mellitus, insulin- dependent, trauma cytopenia due to advanced liver disease, presenting to the emergency room on account of nosebleed. Patient states last night he fell after losing his balance. He noticed he was bleeding from his left nostril but managed to stop the bleeding. The morning of admission, the bleeding recurred and he was unable to stop it and decided to come to the emergency room.Initial evaluation in the emergency room by CT showed mastoiditis, nasal fracture, trombocytopenia with a platelet count of 16. Hemoglobin count was also low at 7.3. ENT specialist (dr Carias) was called . See H&P for details HOSPITAL COURSE: Patient admitted, transfused pRBC , FFP and platelets as above. Nasal area was cauterized without improvement and packing placed. No further bleeding wtih packing. Packing removed by ENT on 07/28 with no further bleeding. H/H remained stable prior to discharge and no further active bleeding present. Patient initially placed on vanc/zosyn for possible mastoiditis and nasal fracture. Antibiotics were discontinued on 07/28 and WBC improved. no reoccurance of bleeding or signs of infection. PT consulted and patient did not require interventions. Patient had episodes of hypoglycemia during hospitalization because "I'm not eating like I do at home". DISCHARGE MEDICATIONS: Please see below. ALLERGIES: Please see below. PHYSICAL EXAMINATION ON DISCHARGE: VITAL SIGNS: Please see below. GENERAL: NAD AAOx3 HEENT:chronic aniscora, EOMI, pupils reactive (left larger than right) HRRR LCTA LABORATORY DATA: Please see below. IMAGING: CT Face:IMPRESSION: 1. Contour abnormality anterior nasal bones consistent with an impacted fracture, age-indeterminate. 2. Opacified left mastoid air cells consistent with mastoiditis. PROGNOSIS:good ACTIVITY:as tolerated DIET: regular DISPOSITION: Discharge home DISCHARGE INSTRUCTIONS: 1. follow up with PCP - Dr Miller in 1 week to recheck labs (CBC, BMP) 2. Follow up with ENT in 2 weeks for recheck of nasal bleeding area DISCHARGE CONDITION: stable TIME SPENT ON DISCHARGE: 30 minutes Vital Signs/I&Os Vital Signs Date Time Temp Pulse Resp B/P (MAP) Pulse Ox O2 Delivery O2 Flow Rate FiO2 07/30/18 10:00 97.4 70 18 110/60 (77) 96 07/26/18 22:00 Room Air I&O- Last 24 Hours up to 6 AM 07/30/18 06:00 Intake Total 3162 ml Output Total 0 ml Balance 3162 ml Laboratory Data Labs 24H Laboratory Tests 2 07/29/18 16:48: Bedside Glucose (Misc Panel) 160H 07/29/18 22:14: Bedside Glucose (Misc Panel) 213H 07/30/18 05:15: Bedside Glucose (Misc Panel) 23*L 07/30/18 05:22: Bedside Glucose (Misc Panel) 37*L 07/30/18 05:31: Nucleated Red Blood Cells % (auto) 0.4H, Prothrombin Time 17.4H, Prothromb Time International Ratio 1.40, Bedside Glucose Confirm (Misc) 36*L, Anion Gap 5L, Glomerular Filtration Rate > 60.0, Blood Urea Nitrogen 31H, Creatinine 1.24, Sodium Level 138, Potassium Level 3.5, Chloride Level 108H, Carbon Dioxide Level 25, Calcium Level 9.4 07/30/18 06:12: Bedside Glucose (Misc Panel) 75 07/30/18 07:53: Bedside Glucose (Misc Panel) 138H 07/30/18 11:47: Bedside Glucose (Misc Panel) 208H CBC/BMP Laboratory Tests 07/30/18 05:31 Red Blood Count 3.34 L, Mean Corpuscular Volume 97.6 H, Mean Corpuscular Hemoglobin 31.1, Mean Corpuscular Hemoglobin Concent 31.9 L, Red Cell Dis tribution Width 19.9 H, Calcium Level 9.4 FSBS Laboratory Tests Test 07/29/18 16:48 07/29/18 22:14 07/30/18 05:15 07/30/18 05:22 Range/Units Bedside Glucose (Misc Panel) 160 213 23 37 70-105 MG/DL Test 07/30/18 06:12 07/30/18 07:53 07/30/18 11:47 Range/Units Bedside Glucose (Misc Panel) 75 138 208 70-105 MG/DL Microbiology Microbiology 07/27/18 Stool Occult Blood (RASHAAD) - Final, Complete 07/27/18 Gastrointestinal Tract Panel (PCR) - Final, Complete Discharge Medications Scheduled Acamprosate Calcium (Acamprosate Calcium) 333 Mg Tab, 666 MG PO TID, (Reported) Albuterol Sulf (Albuterol Sulfate) 2.5 Mg/3 Ml Nebu, 1 INH INH QID, (Reported) Folic Acid (Folic Acid) 1 Mg Tablet, 1 MG PO DAILY, (Reported) Furosemide (Furosemide) 40 Mg Tab, 40 MG PO DAILY, (Reported) Insulin Glargine,Hum.rec.anlog (Lantus Solostar) 100 Unit/1 Ml Insuln.pen, 30 UNITS SC QAM, (Reported) Insulin Glargine,Hum.rec.anlog (Lantus Solostar) 100 Unit/1 Ml Insuln.pen, 40 UNIT SC QPM, (Reported) TAKES BEFORE DINNERTIME Magnesium Oxide (Magnesium Oxide) 400 Mg Tab, 400 MG PO DAILY, (Reported) Multivitamins (Thera M Plus Tablet) 1 Tab Tab, 1 TAB PO DAILY, (Reported) Nadolol (Nadolol) 40 Mg Tab, 40 MG PO DAILY, (Reported) Pantoprazole Sodium (Pantoprazole Sodium) 40 Mg Tablet.dr, 40 MG PO BID Spironolactone (Spironolactone) 100 Mg Tablet, 100 MG PO DAILY, (Reported) Sucralfate (Carafate) 1 Gm/10 Ml Maria G, 10 ML PO BID, (Reported) Scheduled PRN Albuterol Sulfate (Proair Hfa) 108 Mcg/Act Aer, 2 PUFF INH Q4H PRN for SHORTNESS OF BREATH, (Reported) Allergies Coded Allergies: ENVIROMENTAL (Verified Allergy, Unknown, 09/12/11) ALF NAVARRO DO Jul 30, 2018 12:36
[2018-07-30] MEDS ORDERED: LEVEMIR (INSULIN DETEMIR) 1 UNITS/0.01ML SC SCH (21:00)
== END 2018-07-30 14:05 | disposition home or self-care (01) | DRG 813 ==
LOC: M ED 17:13 → M ED INP 20:08 → M MSPAV 23:45
PROVIDERS: ADMIT Hospitalist; ATTEND Family Medicine
PROC: 30233K1 Transfusion of Nonautologous Frozen Plasma into Peripheral Vein, Percutaneous Approach (ICD-10-PCS; 2018-07-26)
PROC: 30233N1 Transfusion of Nonautologous Red Blood Cells into Peripheral Vein, Percutaneous Approach (ICD-10-PCS; principal; 2018-07-27)
PROC: 2Y41X5Z Packing of Nasal Region using Packing Material (ICD-10-PCS; 2018-07-27)
PROC: 30233R1 Transfusion of Nonautologous Platelets into Peripheral Vein, Percutaneous Approach (ICD-10-PCS; 2018-07-27)
DX: D69.59 Other secondary thrombocytopenia (principal); D61.818 Other pancytopenia; D62 Acute posthemorrhagic anemia; R04.0 Epistaxis; S02.2XXA Fracture of nasal bones, initial encounter for closed fracture; K70.30 Alcoholic cirrhosis of liver without ascites; E11.65 Type 2 diabetes mellitus with hyperglycemia; D69.6 Thrombocytopenia, unspecified; E11.649 Type 2 diabetes mellitus with hypoglycemia without coma; Z79.4 Long term (current) use of insulin; D75.9 Disease of blood and blood-forming organs, unspecified; Z79.899 Other long term (current) drug therapy; W18.30XA Fall on same level, unspecified, initial encounter; Y92.009 Unspecified place in unspecified non-institutional (private) residence as the place of occurrence of the external cause; H70.90 Unspecified mastoiditis, unspecified ear; E78.5 Hyperlipidemia, unspecified; K21.9 Gastro-esophageal reflux disease without esophagitis; J44.9 Chronic obstructive pulmonary disease, unspecified; I10 Essential (primary) hypertension

== ENCOUNTER → 2018-08-28 | Outpatient (REF) | payer MEDICARE, OTHER ==
[~2018-08-28] MED LIST changes: +PENT400T23 PO; -PENT40TASA PO
[2018-08-28 17:37] LABS: ALBUMIN 2.5 GM/DL (3.2-5.2); ALT/SGPT 32 U/L (12-78); BILIRUBIN,TOTAL 3.4 MG/DL (0.2-1.0); BLOOD UREA NITROGEN 15 MG/DL (7-18); CALCIUM LEVEL 9.6 MG/DL (8.5-10.1); CARBON DIOXIDE LEVEL 19 MEQ/L (21-32); CHLORIDE LEVEL 110 MEQ/L (98-107); CHOLESTEROL LEVEL 127 MG/DL (<200); CHOLESTEROL RISK RATIO 3.968 (<5); CREATININE FOR GFR 1.01 MG/DL (0.70-1.30); GLOMERULAR FILTRATION RATE > 60.0 (>56); GLUCOSE, FASTING 168 MG/DL (70-100); HDL CHOLESTEROL 32 MG/DL (>40); LDL CHOLESTEROL 71 MG/DL (<100); MAGNESIUM LEVEL 1.4 MG/DL (1.8-2.4); NON-HDL-C 95 MG/DL; POTASSIUM SERUM 3.9 MEQ/L (3.5-5.1); SODIUM LEVEL 141 MEQ/L (136-145); TRIGLYCERIDES LEVEL 119 MG/DL (<150)
[2018-08-28 17:40] LABS: HEMATOCRIT 26.3 % (42.0-52.0); HEMOGLOBIN 8.1 g/dl (13.5-17.5); MEAN CORPUSCULAR HEMOGLOBIN 30.9 pg (27.0-33.0); MEAN CORPUSCULAR HGB CONC 30.8 g/dl (32.0-36.5); MEAN CORPUSCULAR VOLUME 100.4 fl (80.0-96.0); RED BLOOD COUNT 2.62 10^6/uL (4.30-6.10); WHITE BLOOD COUNT 2.2 10^3/uL (4.0-10.0)
[2018-08-28 17:55] LABS: CREATININE, URINE 45.4 MG/DL
[2018-08-28 18:36] LABS: PLATELET COUNT, AUTOMATED 15 10^3/uL (150-450)
[2018-09-02 00:07] LABS: AFP TUMOR L3% 8.5 % (0.0-9.9); AFP TUMOR TOTAL 4.3 ng/mL (0.0-8.0)
== END ==
LOC: M SFHCPLAZ 13:20
PROVIDERS: ATTEND Family Medicine
DX: K70.30 Alcoholic cirrhosis of liver without ascites (principal); D64.9 Anemia, unspecified; E11.69 Type 2 diabetes mellitus with other specified complication; E78.5 Hyperlipidemia, unspecified; I10 Essential (primary) hypertension

== ENCOUNTER 2018-10-03 14:47 | Inpatient (IN) | payer MEDICARE, OTHER ==
[2018-10-03] VITALS (16 sets, daily range): BP systolic 102–129; BP diastolic 53–60
[~2018-10-03] VITALS: Ht 167.6 cm; Wt 80.0 kg
[~2018-10-03 14:47] MED LIST changes: +ALBU83IN NEB; -MAGN400T PO; +MAGN400T3 PO
--- NOTE | 2018-10-03 15:18 | REP ---
Portable chest, 02:00 p.m., single AP view with the patient sitting: Comparison is 05/12/2018. The lung andrew are clear. The cardiac size is normal. The bandar, mediastinum, and skeletal structures are unremarkable. Impression: Negative portable chest. There is no interval change. Electronically Signed by Trevon Sadler MD 10/03/2018 03:10 P
[2018-10-03 16:02] LABS: HEMATOCRIT 11.2 % (42.0-52.0); LYMPH # 0.5 10^3/uL (1.5-4.5); LYMPH % 11.8 % (24.0-44.0); MEAN CORPUSCULAR HEMOGLOBIN 28.6 pg (27.0-33.0); MEAN CORPUSCULAR HGB CONC 28.6 g/dl (32.0-36.5); MONO # 0.4 10^3/uL (0.0-0.8); MONO % 10.3 % (0.0-5.0); NEUTROPHILS # 2.9 10^3/uL (1.8-7.7); NEUTROPHILS % 77.4 % (36.0-66.0); RED BLOOD COUNT 1.12 10^6/uL (4.30-6.10); WHITE BLOOD COUNT 3.8 10^3/uL (4.0-10.0)
[2018-10-03 16:03] LABS: HEMOGLOBIN 3.2 g/dl (13.5-17.5); PLATELET COUNT, AUTOMATED 31 10^3/uL (150-450)
[2018-10-03 16:07] LABS: ALBUMIN 2.3 GM/DL (3.2-5.2); BILIRUBIN,DIRECT 2.7 MG/DL (0.0-0.2); CALCIUM LEVEL 8.4 MG/DL (8.5-10.1); CK-MB VALUE MASS 7.7 NG/ML (<3.6); CREATININE FOR GFR 1.68 MG/DL (0.70-1.30); ETHYL ALCOHOL (ETHANOL) 0.03 % (0.000-0.010); GLOMERULAR FILTRATION RATE 45.9 (>56); MAGNESIUM LEVEL 1.6 MG/DL (1.8-2.4); MB/CK RELATIVE INDEX 2.01 (< OR =4); POTASSIUM SERUM 3.3 MEQ/L (3.5-5.1); THYROID STIMULATING HORMONE 5.76 uIU/ML (0.358-3.740); TOTAL PROTEIN 5.6 GM/DL (6.4-8.2); TROPONIN I 0.14 NG/ML (< 0.10)
[2018-10-03] MEDS ORDERED: ISOVUE-370 76% 100ML VIAL (Q9967) As Ordered ONE (16:13)
[2018-10-03] MEDS ORDERED: PANTOPRAZOLE 40MG INJ (PROTONIX) (C9113) IV ONE (17:00)
[2018-10-03] MEDS ORDERED: OCTREOTIDE ACETATE 100 MCG/ML VIAL (J2354) IV ONE (17:00)
[2018-10-03] MEDS ORDERED: ACETAMINOPHEN TAB 650MG DOSE (2X325MG) PO PRN (17:30)
[2018-10-03] MEDS ORDERED: OCTREOTIDE ACETATE 1,200 MCG in NS 238.8 ML IV SCH (17:30)
[2018-10-03] MEDS ORDERED: SPIR50TA4 PO (17:35)
--- NOTE | 2018-10-03 17:35 | REP ---
REASON: Trauma. COMPARISON: 01/06/2017. TECHNIQUE: 4.5 mm contiguous transaxial sections were obtained from the skull base to the cerebral convexities with thin cuts through the posterior fossa without the administration of intravenous contrast. FINDINGS: The ventricles and sulci are consistent with the patient's age. There are no extra-axial fluid collections. There is no mass effect. The deep cerebral white matter is consistent with the patient's age. The orbital and petrous structures, cerebellopontine angles, and posterior fossa are unremarkable. The sella turcica, cavernous, and paracavernous structures are essentially unremarkable. The visualized portions of the paranasal sinuses and mastoid air cells are clear. Images of the skull base show no gross abnormality. IMPRESSION: Essentially unremarkable CT examination of the brain. Electronically Signed by Maged Licea DO 10/14/2018 10:07 A
[2018-10-03] MEDS ORDERED: PANT-23 PO (17:36)
--- NOTE | 2018-10-03 17:36 | REP ---
REASON: Pain in the neck after trauma. PRIORS: None. Vertebral body height and alignment is within normal limits. There is mild posterior disc space narrowing at every level. The facet joints are well aligned bilaterally. There is no acute cervical spine fracture. There is no abnormal paraspinal soft tissue swelling. IMPRESSION:Mild chronic changes. No acute fracture. Electronically Signed by Maged Licea DO 10/14/2018 10:07 A
--- NOTE | 2018-10-03 17:44 | REP ---
HISTORY: Trauma. COMPARISON: 12/12/2015. CONTRAST: 100 mL Isovue-370 The examination was performed with particular attention to the thoracic aorta. There is no mediastinal or hilar adenopathy. There are no pleural or pericardial effusions. The thoracic aorta is within normal limits. Secondary to the admixture of blood and contrast in the pulmonary arteries I cannot comment on the pulmonary arterial vasculature. Bone window technique throughout the exam shows the osseous structures to be stable and intact. The imaged upper abdomen shows a small amount of ascites. There is splenomegaly. The liver has a nodular appearing surface. The only change between today's exam and the prior exam is the ascites. Evaluation of the lung andrew show scattered asymmetric opacities consistent with fibrotic and/or subsegmental atelectatic changes. No new nodules or spiculated masses have developed. IMPRESSION: 1. No evidence of a thoracic aortic abnormality. 2. Findings involving the imaged upper abdomen as described above. Please refer to the abdominal and pelvic CT obtained same day. 3. Likely subsegmental atelectatic changes in the lung andrew. Consider followup if clinically relevant. 4. Other findings as described above. Electronically Signed by Maged Licea DO 10/14/2018 10:07 A
[2018-10-03] MEDS ORDERED: DEXTROSE 50% 50 ML SYRINGE IV PRN (17:45)
[2018-10-03] MEDS ORDERED: GLUCAGON FOR INJ 1 MG VIAL (J1610) SC PRN (17:45)
[2018-10-03] MEDS ORDERED: GLUCOSE 4 GM CHEW TABLET PO PRN (17:45)
--- NOTE | 2018-10-03 17:49 | REP ---
HISTORY: Trauma. COMPARISON: 06/01/2017 CONTRAST: 100 mL Isovue-370. There is a nodular hepatic surface. This is unchanged. There is ascites, status quo. There is splenomegaly, status quo. There is cholelithiasis, status quo. There is no free intraperitoneal air. The bowel loops are unremarkable in appearance. The pancreas, adrenal glands, and kidneys are unchanged. The abdominal aorta and periaortic regions are within normal limits. CT PELVIS: There is moderate free pelvic fluid. There is no pelvic mass or adenopathy. Bone window technique throughout the exam shows no significant change in the appearance of the osseous structures. IMPRESSION: Cholelithiasis, status quo. Ascites, splenomegaly and evidence of cirrhosis status quo. There is no evidence of acute intra-abdominal or intrapelvic disease or significant change compared to 01/31/2018. Electronically Signed by Maged Licea DO 10/14/2018 10:07 A
--- NOTE | 2018-10-03 17:58 | HPEPDOC ---
General Date of Admission 10/03/18 Date of Service: Oct 03, 2018 Primary Care Physician: HUA MILLER DO Attending Physician: JANET ZEPEDA MD Chief Complaint The patient is a 52-year-old male admitted with a reason for visit of Weakness. Source: Patient Exam Limitations: Clinical conditions Timing/Duration: Week(s) Severity: Severe Associated Symptoms: Other History of Present Illness This is 52 years old white male with past medical history of advanced liver disease, pancytopenia secondary to alcohol abuse, type 2 diabetes mellitus was admitted in this hospital in July of this year with the diagnosis of a nosebleed and what discharge once he was stabilized. As per patient, he has not been feeling well since his discharge he has increasing tired, weakness and fatigue and recently started physical therapy, but he was so tired he was unable to finish it. He denies any chest pain, shortness of breath, nausea, vomiting, diarrhea, or loss of consciousness. As per patient, he did notice dark stools since July but he didn't pay much attention to it. Patient's last drink was yesterday and he denies smoking Home Medications Scheduled Acamprosate Calcium (Acamprosate Calcium) 333 Mg Tab, 666 MG PO TID, (Reported) Albuterol Sulf (Albuterol Sulfate) 2.5 Mg/3 Ml Nebu, 1 VIAL NEB QID, (Reported) Folic Acid (Folic Acid) 1 Mg Tablet, 1 MG PO DAILY, (Reported) Furosemide (Furosemide) 40 Mg Tab, 40 MG PO DAILY, (Reported) Insulin Glargine,Hum.rec.anlog (Lantus Solostar) 100 Unit/1 Ml Insuln.pen, 30 UNITS SC QAM, (Reported) Insulin Glargine,Hum.rec.anlog (Lantus Solostar) 100 Unit/1 Ml Insuln.pen, 40 UNIT SC QPM, (Reported) TAKES BEFORE DINNERTIME Magnesium Oxide (Magnesium Oxide) 400 Mg Tab, 400 MG PO DAILY, (Reported) Multivitamins (Thera M Plus Tablet) 1 Tab Tab, 1 TAB PO DAILY, (Reported) Nadolol (Nadolol) 40 Mg Tab, 40 MG PO DAILY, (Reported) Pantoprazole Sodium (Pantoprazole Sodium) 40 Mg Tablet.dr, 40 MG PO BID, (Reported) Spironolactone (Spironolactone) 50 Mg Tablet, 50 MG PO BID, (Reported) Sucralfate (Carafate) 1 Gm/10 Ml Maria G, 10 ML PO BID, (Reported) Scheduled PRN Albuterol Sulfate (Proair Hfa) 108 Mcg/Act Aer, 2 PUFF INH Q4H PRN for SHORTNESS OF BREATH, (Reported) Allergies Coded Allergies: ENVIROMENTAL (Verified Allergy, Unknown, 09/12/11) Past Medical History Medical History Liver cirrhosis, hypertension, hyperlipidemia, diabetes mellitus, GERD, COPD, alcohol abuse, pancytopenia Surgical History Right shoulder rotator cuff repair, and variceal banding Family History Significant Family History: No pertinent family hx Social History * Smoker: Denies Alcohol: heavy Drugs: denies A-FIB/CHADSVASC A-FIB History Current/History of A-Fib/PAF?: No Review of Systems Constitutional: Reports: Malaise, Weakness, Fatigue Eyes: Denies: Pain, Vision change, Conjunctivae inflammation, Eyelid inflammation, Redness, Other ENT: Denies: Head Aches, Ear Pain, Dysphagia, Sinus Congestion, Post Nasal Drip, Sore Throat, Epistaxis, Other Symptoms Skin: Denies: Rash, Lesions, Jaundice, Bruising, Itching, Dry, Breakdown, Nail Changes, Other Pulmonary: Denies: Dyspnea, Cough, Pleuritic Chest Pain, Other Symptoms Cardiovascular: Denies: Chest Pain, Palpitations, Orthopnea, Paroxysmal Noc. Dyspnea, Edema, Lt Headedness, Other Symptoms Gastrointestinal: Reports: Other Symptoms (dark stools) Genitourinary: Denies: Dysuria, Frequency, Incontinence, Hematuria, Retention, Other Symptoms Hematologic: Denies: Bruising, Bleeding Excessively, Petecchia, Purpura, Enlarged Lymph Nodes, Other Hematologic Endocrine: Denies: Polydipsia, Polyphagia, Polyuria, Heat Intolerance, Cold Intolerance, Other Endocrine Sx Musculoskeletal: Denies: Neck Pain, Back Pain, Shoulder Pain, Arm Pain, Hand Pain, Leg Pain, Foot Pain, Joint Pain, Muscle Pain, Spasms, Other Symptoms Neurological: Denies: Weakness, Numbness, Incoordination, Change in speech, Confusion, Seizures, Other Symptoms Psych: Denies: Mood Normal, Anxiety, Depression, Memory Issues, Thoughts of Self Harm, Anger, Thoughts of Harming Other, Other Psych Physical Examination General Exam: Positive: Alert, Cooperative Eye Exam: Positive: PERRLA, Other Eye Symptoms (yellowish conjunctivae) ENT Exam: Positive: Atraumatic, Other ENT (pale mucous membrane) Neck Exam: Positive: Supple Chest Exam: Positive: Clear to auscultation, Normal air movement Heart Exam: Positive: Rate Normal, Normal S1, Normal S2 Abdomen Exam: Positive: Normal bowel sounds, Soft Extremity Exam: Positive: Normal pulses Skin Exam: Positive: Other skin issue (pale yellowish skin cold to touch) Neuro Exam: Positive: Strength at 5/5 X4 ext, Sensation Intact Psych Exam: Positive: Oriented x 3 Vital Signs Vital Signs Date Time Temp Pulse Resp B/P (MAP) Pulse Ox O2 Delivery O2 Flow Rate FiO2 10/03/18 14:59 97.0 96 20 114/57 (76) 96 Room Air Laboratory Data Labs 24H Laboratory Tests 2 10/03/18 15:20: Immature Granulocyte % (Auto) 0.5, White Blood Count 3.8L, Red Blood Count 1.12L, Hemoglobin 3.2*L, Hematocrit 11.2L, Mean Corpuscular Volume 100.0H, Mean Corpuscular Hemoglobin 28.6, Mean Corpuscular Hemoglobin Concent 28.6L, Red Cell Distribution Width 18.4H, Platelet Count 31L, Neutrophils (%) (Auto) 77.4H, Lymphocytes (%) (Auto) 11.8L, Monocytes (%) (Auto) 10.3H, Eosinophils (%) (Auto) 0.0, Basophils (%) (Auto) 0.0, Neutrophils # (Auto) 2.9, Lymphocytes # (Auto) 0.5L, Monocytes # (Auto) 0.4, Eosinophils # (Auto) 0.0, Basophils # (Auto) 0.0, Nucleated Red Blood Cells % (auto) 0.0, Immature Platelet Fraction 5.0, Anion Gap 20H, Glomerular Filtration Rate 45.9L, Osmolality 309H, Calcium Level 8.4L, Magnesium Level 1.6L, Aspartate Amino Transf (AST/SGOT) 75H, Alanine Aminotransferase (ALT/SGPT) 32, Alkaline Phosphatase 130H, Total Bilirubin 4.0H, Direct Bilirubin 2.7H, Ammonia 28, Total Creatine Kinase 383H, Creatine Kinase MB 7.7H, Creatine Kinase MB Relative Index 2.01, Troponin I 0.14H, Total Protein 5.6L, Albumin 2.3L, Albumin/Globulin Ratio 0.70L, Thyroid Stimulating Hormone (TSH) 5.760H, Ethyl Alcohol Level 0.030H 10/03/18 15:21: Lactic Acid Level 7.0*H 10/03/18 17:27: CBC/BMP Laboratory Tests 10/03/18 15:20 Red Blood Count 1.12 L, Mean Corpuscular Volume 100.0 H, Mean Corpuscular Hemoglobin 28.6, Mean Corpuscular Hemoglobin Concent 28.6 L, Red Cell D istribution Width 18.4 H, Neutrophils (%) (Auto) 77.4 H, Lymphocytes (%) (Auto) 11.8 L, Monocytes (%) (Auto) 10.3 H, Eosinophils (%) (Auto) 0.0, Basophils (%) (Auto) 0.0, Neutrophils # (Auto) 2.9, Lymphocytes # (Auto) 0.5 L, Monocytes # (Auto) 0.4, Eosinophils # (Auto) 0.0, Basophils # (Auto) 0.0 Microbiology Microbiology 10/03/18 Blood Culture, Received Pending Problems (1) Anemia due to gastrointestinal blood loss Status: Acute Problem Text: 52 years old white male with past medical history of end-stage liver cirrhosis, hypertension, hyperlipidemia, diabetes mellitus, GERD, COPD, pancytopenia, history of active use of alcohol was admitted in this hospital in July with the diagnoses of epistaxis when he was stabilized and sent back home, but as per patient, he started noticing dark stools on and off and also increasing tired and fatigued with which he did not pay much attention until he started doing physical therapy. I am and he was too tired to perform physical therapy and decided to come to ER where he was diagnosed with severe anemia most likely secondary to acute on chronic GI bleed. Also was found to have thrombocytopenia with platelets of 31,000 and pancytopenia as well. Patient was also found to have hypo-hypokalemia, hypomagnesemia and elevated troponin, which most likely secondary to ischemic demand affect. Patient's ammonia is within normal range. His TSH is also slightly elevated 5.760, but with normal heart rate. Patient will be admitted to ICU for close monitoring and care IV fluid normal saline 800 mL per hour Transfusion 2 units of PRBC as ordered from ED . Patient also received transfusion of 1 unit of platelets as ordered from ED CBC every every 4 hours to confirm platelet number and transfuse if needed Oxygen support by 2 L nasal cannula Vital signs as per ICU protocol Intake and output Dr. Lopez for GI was called by Dr. Cassidy DVT prophylaxis with bilateral SCDs Clear liquid diet Bed rest Prognosis poor (2) GI bleeding Status: Acute Problem Text: Most likely acute on chronic GI bleed His H&H on presentation was 3.2/11.2 and platelets of 31,000 Started on Protonix drip Also started on octreotide drip Monitor H&H Transfuse as needed CT abdomen, pelvis and chest were within normal range as per Dr. Cassidy CT of the head and neck were also essentially were normal (3) Hypokalemia Status: Acute Problem Text: Potassium supplement has been ordered Repeat CMP in a.m. (4) Thrombocytopenia Status: Chronic Problem Text: Patient receiving transfusion of platelets CBC every 4 hours to monitor platelet number and transfuse as needed. No indication of active bleeding at the present time bedside GI bleed as guaiac stools are positive for Hemoccult (5) Hypomagnesemia Status: Acute Problem Text: Magnesium supplement has been ordered Repeat levels in a.m. (6) Alcoholic cirrhosis Status: Chronic Problem Text: History of alcohol cirrhosis and he still is active drinker . His ammonia is 28, AST 75, ALT 32 Further, as per GI recommendations Plan / VTE VTE Prophylaxis Ordered?: Yes JANET ZEPEDA MD Oct 03, 2018 17:58
[2018-10-03] MEDS ORDERED: NS 1,000 ML IV SCH (18:00)
[2018-10-03 18:03] LABS: AMPHETAMINES LEVEL URINE NEGATIVE (NEGATIVE); BARBITURATES URINE NEGATIVE (NEGATIVE); BENZODIAZEPINES URINE NEGATIVE (NEGATIVE); CANNABINOIDS URINE NEGATIVE (NEGATIVE); COCAINE METABOLITE URINE NEGATIVE (NEGATIVE); METHADONE URINE NEGATIVE (NEGATIVE); OPIATES URINE NEGATIVE (NEGATIVE); PHENCYCLIDINE URINE NEGATIVE (NEGATIVE)
[2018-10-03] MEDS: OCTREOTIDE ACETATE 1,200 MCG in NS 238.8 ML IV SCH (18:20)
[2018-10-03] MEDS: PANTOPRAZOLE SODIUM 40 MG in D5W 50 ML IV SCH ×2 (18:20→23:06)
[2018-10-03] MEDS ORDERED: ONDANSETRON 4MG/2ML VIAL (J2405) As Ordered ONE (18:45)
[2018-10-03] MEDS: KCL 10MEQ/100ML SWI (KRUN) 10 MEQ in IV 1 EA IV SCH ×2 (18:47→20:17)
[2018-10-03] MEDS: ONDANSETRON 4MG/2ML VIAL (J2405) IV PRN (18:48)
[2018-10-03] MEDS ORDERED: LORazepam 2 MG TAB PO PRN (20:00)
[2018-10-03] MEDS ORDERED: MAG SULF 1GM/100ML (MAG RUN) 1 GM in IV 1 EA IV ONE (20:00)
[2018-10-03] MEDS: HumaLOG INSULIN (NovoLOG) PER UNIT SC SCH ×2 (20:24→23:51)
[2018-10-03] MEDS: THIAMINE 100 MG TAB PO SCH (20:24)
[2018-10-03] MEDS ORDERED: FUROSEMIDE 20 MG/2 ML VIAL (J1940) IV ONE (21:00)
[2018-10-03 21:26] LABS: HEMATOCRIT 14.4 % (42.0-52.0); MEAN CORPUSCULAR HEMOGLOBIN 28.8 pg (27.0-33.0); MEAN CORPUSCULAR HGB CONC 29.2 g/dl (32.0-36.5); MEAN CORPUSCULAR VOLUME 98.6 fl (80.0-96.0); RED BLOOD COUNT 1.46 10^6/uL (4.30-6.10); WHITE BLOOD COUNT 3.3 10^3/uL (4.0-10.0)
[2018-10-03 21:29] LABS: HEMOGLOBIN 4.2 g/dl (13.5-17.5); PLATELET COUNT, AUTOMATED 23 10^3/uL (150-450)
--- NOTE | 2018-10-03 23:48 | ECGEPIP ---
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
[2018-10-04] VITALS (44 sets, daily range): BP systolic 78–115; BP diastolic 37–59
[2018-10-04 01:32] LABS: HEMATOCRIT 17.9 % (42.0-52.0); MEAN CORPUSCULAR HEMOGLOBIN 29.2 pg (27.0-33.0); MEAN CORPUSCULAR HGB CONC 31.3 g/dl (32.0-36.5); MEAN CORPUSCULAR VOLUME 93.2 fl (80.0-96.0); RED BLOOD COUNT 1.92 10^6/uL (4.30-6.10); WHITE BLOOD COUNT 3.9 10^3/uL (4.0-10.0)
[2018-10-04 01:38] LABS: HEMOGLOBIN 5.6 g/dl (13.5-17.5); PLATELET COUNT, AUTOMATED 20 10^3/uL (150-450)
[2018-10-04 01:43] LABS: INR 1.76; PROTHROMBIN TIME 20.3 SECONDS (11.8-14.0)
[2018-10-04 01:44] LABS: PARTIAL THROMBOPLASTIN TIME 36.5 SECONDS (25.0-38.4)
[2018-10-04 02:23] LABS: MB/CK RELATIVE INDEX 2.17 (< OR =4); TROPONIN I 0.09 NG/ML (< 0.10)
[2018-10-04] MEDS: ONDANSETRON 4MG/2ML VIAL (J2405) IV PRN (03:26)
[2018-10-04] MEDS: PANTOPRAZOLE SODIUM 40 MG in D5W 50 ML IV SCH ×4 (03:26→18:22)
[2018-10-04] MEDS: HumaLOG INSULIN (NovoLOG) PER UNIT SC SCH ×3 (05:59→18:26)
[2018-10-04 06:48] LABS: HEMATOCRIT 19.9 % (42.0-52.0); MEAN CORPUSCULAR HEMOGLOBIN 29.2 pg (27.0-33.0); MEAN CORPUSCULAR HGB CONC 31.7 g/dl (32.0-36.5); MEAN CORPUSCULAR VOLUME 92.1 fl (80.0-96.0); RED BLOOD COUNT 2.16 10^6/uL (4.30-6.10); WHITE BLOOD COUNT 3.1 10^3/uL (4.0-10.0)
[2018-10-04 06:50] LABS: PLATELET COUNT, AUTOMATED 18 10^3/uL (150-450)
[2018-10-04 06:51] LABS: HEMOGLOBIN 6.3 g/dl (13.5-17.5)
[2018-10-04 06:57] LABS: INR 1.71; PROTHROMBIN TIME 19.8 SECONDS (11.8-14.0)
[2018-10-04 07:32] LABS: ALBUMIN 2.2 GM/DL (3.2-5.2); CALCIUM LEVEL 8.1 MG/DL (8.5-10.1); CREATININE FOR GFR 1.86 MG/DL (0.70-1.30); GLOMERULAR FILTRATION RATE 40.8 (>56); POTASSIUM SERUM 3.5 MEQ/L (3.5-5.1); TOTAL PROTEIN 5.6 GM/DL (6.4-8.2)
[2018-10-04] MEDS: FOLIC ACID 1 MG TAB PO SCH (08:49)
[2018-10-04] MEDS: MULTIVITAMINS/MINERALS THERAP 1 TAB PO SCH (08:49)
[2018-10-04] MEDS: THIAMINE 100 MG TAB PO SCH ×2 (08:49→21:16)
[2018-10-04 10:29] LABS: HEMATOCRIT 19.1 % (42.0-52.0); MEAN CORPUSCULAR HEMOGLOBIN 29.2 pg (27.0-33.0); MEAN CORPUSCULAR HGB CONC 31.9 g/dl (32.0-36.5); MEAN CORPUSCULAR VOLUME 91.4 fl (80.0-96.0); RED BLOOD COUNT 2.09 10^6/uL (4.30-6.10); WHITE BLOOD COUNT 2.9 10^3/uL (4.0-10.0)
[2018-10-04 10:31] LABS: PLATELET COUNT, AUTOMATED 20 10^3/uL (150-450)
[2018-10-04 10:32] LABS: HEMOGLOBIN 6.1 g/dl (13.5-17.5)
--- NOTE | 2018-10-04 10:40 | IPNPDOC ---
Subjective Date Seen The patient was seen on 10/04/18. Subjective Chief Complaint/HPI Is stable, comfortable tachycardic but in no apparent distress. General: Denies: ROS Unobtainable, Chills, Night Sweats, Fatigue, Malaise, Normal Appetite, Other Symptoms Constitutional: Denies: Chills, Fever, Malaise, Night Sweats, Weakness, Fatigue, Weight Loss, Lethargy, Other Eyes: Denies: Pain, Vision change, Conjunctivae inflammation, Eyelid inflammation, Redness, Other ENT: Denies: Head Aches, Ear Pain, Dysphagia, Sinus Congestion, Post Nasal Dri p, Sore Throat, Epistaxis, Other Symptoms Skin: Denies: Rash, Lesions, Jaundice, Bruising, Itching, Dry, Breakdown, Nail Changes, Other Pulmonary: Denies: Dyspnea, Cough, Pleuritic Chest Pain, Other Symptoms Cardiovascular: Denies: Chest Pain, Palpitations, Orthopnea, Paroxysmal Noc. Dyspnea, Edema, Lt Headedness, Other Symptoms Gastrointestinal: Denies: Nausea, Vomiting, Abdominal Pain, Diarrhea, Constipation, Melena, Hematochezia, Other Symptoms Musculoskeletal: Denies: Neck Pain, Back Pain, Shoulder Pain, Arm Pain, Hand Pain, Leg Pain, Foot Pain, Joint Pain, Muscle Pain, Spasms, Other Symptoms Neurological: Denies: Weakness, Numbness, Incoordination, Change in speech, Confusion, Seizures, Other Symptoms Objective Physical Examination General Exam: Positive: Alert, Cooperative Eye Exam: Positive: PERRLA, Other Eye Symptoms (yellowish conjunctivae) ENT Exam: Positive: Atraumatic, Other ENT (pale mucous membrane) Neck Exam: Positive: Supple Chest Exam: Positive: Clear to auscultation, Normal air movement Heart Exam: Positive: Rate Normal, Normal S1, Normal S2 Abdomen Exam: Positive: Normal bowel sounds, Soft Extremity Exam: Positive: Normal pulses Skin Exam: Positive: Other skin issue (pale yellowish skin cold to touch) Neuro Exam: Positive: Strength at 5/5 X4 ext, Sensation Intact Psych Exam: Positive: Oriented x 3 Assessment /Plan Problems (1) Anemia due to gastrointestinal blood loss Status: Acute Problem Text: 52 years old white male with past medical history of end-stage liver cirrhosis, hypertension, hyperlipidemia, diabetes mellitus, GERD, COPD, pancytopenia, history of active use of alcohol was admitted in this hospital in July with the diagnoses of epistaxis when he was stabilized and sent back home, but as per patient, he started noticing dark stools on and off and also increasing tired and fatigued with which he did not pay much attention until he started doing physical therapy. I am and he was too tired to perform physical therapy and decided to come to ER where he was diagnosed with severe anemia most likely secondary to acute on chronic GI bleed. Also was found to have thrombocytopenia with platelets of 31,000 and pancytopenia as well. Patient was also found to have hypo-hypokalemia, hypomagnesemia and elevated troponin, which most likely secondary to ischemic demand affect. Patient's ammonia is within normal range. His TSH is also slightly elevated 5.760, but with normal heart rate. Patient will be admitted to ICU for close monitoring and care IV fluid normal saline 100 mL per hour Repeat hemoglobin after transfusion is 6.1 and platelets of the transfusion is 20,000 Will order 2 more units of PRBC to bring hemoglobin more than 7 Continue monitoring platelet levels. Transfuse red blood count less than 20,000.and active bleeding. GI consult is pending Discussed with patient regarding DNR/DNI, patient wants full code and everything aggressive, which can be done. Poor prognosis (2) GI bleeding Status: Acute Problem Text: Most likely acute on chronic GI bleed His H&H on presentation was 3.2/11.2 and platelets of 31,000 Started on Protonix drip Also started on octreotide drip , We will transfuse 2 units of PRBC is as, hemoglobin is 6.1 after multiple transfusions (3) Hypokalemia Status: Acute Problem Text: Potassium supplement has been ordered Repeat CMP in a.m. (4) Thrombocytopenia Status: Chronic Problem Text: Patient receiving transfusion of platelets CBC every 4 hours to monitor platelet number and transfuse as needed. No indica tion of active bleeding at the present time bedside GI bleed as guaiac stools are positive for Hemoccult (5) Hypomagnesemia Status: Acute Problem Text: Magnesium supplement has been ordered Repeat levels in a.m. (6) Alcoholic cirrhosis Status: Chronic Problem Text: History of alcohol cirrhosis and he still is active drinker . His ammonia is 28, AST 75, ALT 32 Further, as per GI recommendations Plan/VTE VTE Prophylaxis Ordered?: Yes VS, I&O, 24H, Fishbone Vital Signs/I&O Vital Signs Date Time Temp Pulse Resp B/P (MAP) Pulse Ox O2 Delivery O2 Flow Rate FiO2 10/04/18 10:01 109 101/57 (72) 97 2.0 10/04/18 07:01 97.8 18 10/03/18 14:59 Room Air I&O- Last 24 Hours up to 6 AM 10/04/18 06:00 Intake Total 1640 ml Output Total 1000 ml Balance 640 ml Laboratory Data 24H LABS Laboratory Tests 2 10/03/18 15:20: Immature Granulocyte % (Auto) 0.5, White Blood Count 3.8L, Red Blood Count 1.12L, Hemoglobin 3.2*L, Hematocrit 11.2L, Mean Corpuscular Volume 100.0H, Mean Corpuscular Hemoglobin 28.6, Mean Corpuscular Hemoglobin Concent 28.6L, Red Cell Distribution Width 18.4H, Platelet Count 31L, Neutrophils (%) (Auto) 77.4H, Lymphocytes (%) (Auto) 11.8L, Monocytes (%) (Auto) 10.3H, Eosinophils (%) (Auto) 0.0, Basophils (%) (Auto) 0.0, Neutrophils # (Auto) 2.9, Lymphocytes # (Auto) 0.5L, Monocytes # (Auto) 0.4, Eosinophils # (Auto) 0.0, Basophils # (Auto) 0.0, Nucleated Red Blood Cells % (auto) 0.0, Immature Platelet Fraction 5.0, Anion Ga p 20H, Glomerular Filtration Rate 45.9L, Osmolality 309H, Calcium Level 8.4L, Magnesium Level 1.6L, Aspartate Amino Transf (AST/SGOT) 75H, Alanine Aminotransferase (ALT/SGPT) 32, Alkaline Phosphatase 130H, Total Bilirubin 4.0H, Direct Bilirubin 2.7H, Ammonia 28, Total Creatine Kinase 383H, Creatine Kinase MB 7.7H, Creatine Kinase MB Relative Index 2.01, Troponin I 0.14H, Total Protein 5.6L, Albumin 2.3L, Albumin/Globulin Ratio 0.70L, Thyroid Stimulating Hormone (TSH) 5.760H, Ethyl Alcohol Level 0.030H 10/03/18 15:21: Lactic Acid Level 7.0*H 10/03/18 17:27: Urine Color YELLOW, Urine Appearance CLEAR, Urine pH 5.0, Urine Specific Comfrey 1.011, Urine Protein NEGATIVE, Urine Glucose (UA) NEGATIVE, Urine Ketones TRACEH, Urine Blood 1+H, Urine Nitrite NEGATIVE, Urine Bilirubin NEGATIVE, Urine Urobilinogen 2.0H, Urine Leukocyte Esterase NEGATIVE, Urine WBC (Auto) 0, Urine RBC (Auto) 4H, Urine Hyaline Casts (Auto) 15, Urine Bacteria (Auto) NEGATIVE, Ur ine Squamous Epithelial Cells 0, Urine Mucus (Auto) SMALL, Urine Sperm (Auto) , Urine Amphetamines Screen NEGATIVE, Urine Benzodiazepines Screen NEGATIVE, Urine Opiates Screen NEGATIVE, Urine Methadone Screen NEGATIVE, Urine Barbiturates Screen NEGATIVE, Urine Phencyclidine Screen NEGATIVE, Urine Cocaine Metabolite Screen NEGATIVE, Urine Cannabinoids Screen NEGATIVE 10/03/18 19:26: Bedside Glucose (Misc Panel) 132H 10/03/18 20:02: Bedside Glucose (Misc Panel) 137H 10/03/18 21:19: Nucleated Red Blood Cells % (auto) 0.0, Lactic Acid Followup at 4 Hours 2.6*H 10/03/18 23:35: Bedside Glucose (Misc Panel) 161H 10/04/18 01:25: Nucleated Red Blood Cells % (auto) 0.0, Prothrombin Time 20.3H, Prothromb Time International Ratio 1.76, Activated Partial Thromboplast Time 36.5, Total Creatine Kinase 276, Creatine Kinase MB 6.0H, Creatine Kinase MB Relative Index 2.17, Troponin I 0.09# 10/04/18 05:55: Bedside Glucose (Misc Panel) 132H 10/04/18 06:30: Nucleated Red Blood Cells % (auto) 0.0, Prothrombin Time 19.8H, Prothromb Time International Ratio 1.71, Anion Gap 14, Glomerular Filtration Rate 40.8L, Blood Urea Nitrogen 51H, Creatinine 1.86H, Sodium Level 137, Potassium Level 3.5, Chloride Level 105, Carbon Dioxide Level 18L, Calcium Level 8.1L, Aspartate Amino Transf (AST/SGOT) 72H, Alanine Aminotransferase (ALT/SGPT) 31, Alkaline Phosphatase 119H, Total Bilirubin 7.0#H, Total Protein 5.6L, Albumin 2.2L, Albumin/Globulin Ratio 0.65L 10/04/18 10:19: Nucleated Red Blood Cells % (auto) 0.0 CBC/BMP Laboratory Tests 10/03/18 15:20 Red Blood Count 1.12 L, Mean Corpuscular Volume 100.0 H, Mean Corpuscular He moglobin 28.6, Mean Corpuscular Hemoglobin Concent 28.6 L, Red Cell Distribution Width 18.4 H, Neutrophils (%) (Auto) 77.4 H, Lymphocytes (%) (Auto) 11.8 L, Monocytes (%) (Auto) 10.3 H, Eosinophils (%) (Auto) 0.0, Basophils (%) (Auto) 0.0, Neutrophils # (Auto) 2.9, Lymphocytes # (Auto) 0.5 L, Monocytes # (Auto) 0.4, Eosinophils # (Auto) 0.0, Basophils # (Auto) 0.0 10/03/18 21:19 Red Blood Count 1.46 L, Mean Corpuscular Volume 98.6 H, Mean Corpuscular Hemoglobin 28.8, Mean Corpuscular Hemoglobin Concent 29.2 L, Red Cell Distribution Width 19.3 H 10/04/18 01:25 Red Blood Count 1.92 L, Mean Corpuscular Volume 93.2, Mean Corpuscular Hemoglobin 29.2, Mean Corpuscular Hemoglobin Concent 31.3 L, Red Cell Distribution Width 18.6 H 10/04/18 06:30 Red Blood Count 2.16 L, Mean Corpuscular Volume 92.1, Mean Corpuscular Hemoglobin 29.2, Mean Corpuscular Hemoglobin Concent 31.7 L, Red Cell Distribution Width 18.5 H, Calcium Level 8.1 L, Aspartate Amino Transf (AST/SGOT) 72 H, Alanine Aminotransferase (ALT/SGPT) 31, Alkaline Phosphatase 119 H, Total Bilirubin 7.0 #H, Total Protein 5.6 L, Albumin 2.2 L 10/04/18 10:19 Red Blood Count 2.09 L, Mean Corpuscular Volume 91.4, Mean Corpuscular Hemoglobin 29.2, Mean Corpuscular Hemoglobin Concent 31.9 L, Red Cell Distribution Width 19.2 H Microbiology Microbiology 10/03/18 Blood Culture, Received Pending 10/03/18 Blood Culture, Received Pending JANET ZEPEDA MD Oct 04, 2018 10:39
--- NOTE | 2018-10-04 14:53 | ECGEPIP ---
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
[2018-10-04 17:07] LABS: HEMATOCRIT 23.8 % (42.0-52.0); HEMOGLOBIN 7.9 g/dl (13.5-17.5); MEAN CORPUSCULAR HEMOGLOBIN 29.3 pg (27.0-33.0); MEAN CORPUSCULAR HGB CONC 33.2 g/dl (32.0-36.5); MEAN CORPUSCULAR VOLUME 88.1 fl (80.0-96.0); WHITE BLOOD COUNT 3.9 10^3/uL (4.0-10.0)
[2018-10-04 17:10] LABS: PLATELET COUNT, AUTOMATED 25 10^3/uL (150-450)
[2018-10-04] MEDS: OCTREOTIDE ACETATE 1,200 MCG in NS 238.8 ML IV SCH (18:25)
[2018-10-04 21:06] LABS: HEMATOCRIT 23.8 % (42.0-52.0); HEMOGLOBIN 7.6 g/dl (13.5-17.5); MEAN CORPUSCULAR HEMOGLOBIN 28.3 pg (27.0-33.0); MEAN CORPUSCULAR HGB CONC 31.9 g/dl (32.0-36.5); MEAN CORPUSCULAR VOLUME 88.5 fl (80.0-96.0); RED BLOOD COUNT 2.69 10^6/uL (4.30-6.10); WHITE BLOOD COUNT 3.4 10^3/uL (4.0-10.0)
[2018-10-04 21:07] LABS: PLATELET COUNT, AUTOMATED 23 10^3/uL (150-450)
[2018-10-05] VITALS (16 sets, daily range): BP systolic 89–149; BP diastolic 52–81
[2018-10-05 04:15] LABS: HEMATOCRIT 23.8 % (42.0-52.0); HEMOGLOBIN 7.8 g/dl (13.5-17.5); MEAN CORPUSCULAR HEMOGLOBIN 28.8 pg (27.0-33.0); MEAN CORPUSCULAR HGB CONC 32.8 g/dl (32.0-36.5); MEAN CORPUSCULAR VOLUME 87.8 fl (80.0-96.0); PLATELET COUNT, AUTOMATED 23 10^3/uL (150-450); RED BLOOD COUNT 2.71 10^6/uL (4.30-6.10); WHITE BLOOD COUNT 3.1 10^3/uL (4.0-10.0)
[2018-10-05 04:24] LABS: INR 1.65; PROTHROMBIN TIME 19.3 SECONDS (11.8-14.0)
[2018-10-05 04:34] LABS: ALBUMIN 2.3 GM/DL (3.2-5.2); BILIRUBIN,TOTAL 6.2 MG/DL (0.2-1.0); CALCIUM LEVEL 7.8 MG/DL (8.5-10.1); CREATININE FOR GFR 2.36 MG/DL (0.70-1.30); POTASSIUM SERUM 3.2 MEQ/L (3.5-5.1); TOTAL PROTEIN 5.8 GM/DL (6.4-8.2)
[2018-10-05] MEDS: PANTOPRAZOLE SODIUM 40 MG in D5W 50 ML IV SCH ×3 (05:17)
[2018-10-05] MEDS: HumaLOG INSULIN (NovoLOG) PER UNIT SC SCH ×5 (06:00→21:00)
[2018-10-05] MEDS ORDERED: LIDOCAINE 2% INJ 100 MG/5 ML SDV (FOR ANES.) As Ordered ONE (08:18)
[2018-10-05] MEDS ORDERED: propofoL 200 MG/20 ML VIAL As Ordered ONE (08:18)
--- NOTE | 2018-10-05 08:48 | ROOR ---
Patient Name: Will Monet Procedure Date: 10/05/2018 7:31 AM Date of : 1965 Age: 52 Gender: Male Note Status: Finalized Procedure: Upper GI endoscopy Indications: Iron deficiency anemia secondary to chronic blood loss, Melena Providers: Gamaliel Lopez MD Referring MD: Koki Pedersen Do Requesting Provider: Medicines: Monitored Anesthesia Care Complications: No immediate complications. Procedure: Pre-Anesthesia Assessment: - The heart rate, respiratory rate, oxygen saturations, blood pressure, adequacy of pulmonary ventilation, and response to care were monitored throughout the procedure. The Endoscope was introduced through the mouth, and advanced to the second part of duodenum. The upper GI endoscopy was accomplished without difficulty. The patient tolerated the procedure well. Findings: Moderately severe esophagitis with no bleeding was found 40 cm from the incisors. Many cratered esophageal ulcers with no bleeding and no stigmata of recent bleeding were found 40 cm from the incisors. Mild portal hypertensive gastropathy was found in the entire examined stomach. Localized mild inflammation characterized by congestion (edema), erosions and erythema was found in the first portion of the duodenum. The exam was otherwise without abnormality. Impression: - Moderately severe erosive esophagitis. - Non-bleeding esophageal ulcers. - Portal hypertensive gastropathy. - Duodenitis. - The examination was otherwise normal. - No specimens collected. - The examination was otherwise normal. Recommendation: - [facility]. - Continue present medications. - Return to referring physician. - The findings and recommendations were discussed with the patient and their primary physician. Gamaliel Lopez MD Gamaliel Lopez MD 10/05/2018 8:47:59 AM Electronically signed by Gamaliel Lopez MD Number of Addenda: 0 Note Initiated On: 10/05/2018 7:31 AM Estimated Blood Loss: Estimated blood loss: none.
--- NOTE | 2018-10-05 08:50 | IPNPDOC ---
Subjective Date Seen The patient was seen on 10/05/18. Subjective Chief Complaint/HPI Patient is comfortable in no distress. Offers no new complaints General: Denies: ROS Unobtainable, Chills, Night Sweats, Fatigue, Malaise, Normal Appetite, Other Symptoms Constitutional: Denies: Chills, Fever, Malaise, Night Sweats, Weakness, Fatigue, Weight Loss, Lethargy, Other Eyes: Denies: Pain, Vision change, Conjunctivae inflammation, Eyelid inflammation, Redness, Other ENT: Denies: Head Aches, Ear Pain, Dysphagia, Sinus Congestion, Post Nasal Dri p, Sore Throat, Epistaxis, Other Symptoms Skin: Denies: Rash, Lesions, Jaundice, Bruising, Itching, Dry, Breakdown, Nail Changes, Other Pulmonary: Denies: Dyspnea, Cough, Pleuritic Chest Pain, Other Symptoms Cardiovascular: Denies: Chest Pain, Palpitations, Orthopnea, Paroxysmal Noc. Dyspnea, Edema, Lt Headedness, Other Symptoms Gastrointestinal: Denies: Nausea, Vomiting, Abdominal Pain, Diarrhea, Constipation, Melena, Hematochezia, Other Symptoms Musculoskeletal: Denies: Neck Pain, Back Pain, Shoulder Pain, Arm Pain, Hand Pain, Leg Pain, Foot Pain, Joint Pain, Muscle Pain, Spasms, Other Symptoms Neurological: Denies: Weakness, Numbness, Incoordination, Change in speech, Confusion, Seizures, Other Symptoms Objective Physical Examination General Exam: Positive: Alert, Cooperative Eye Exam: Positive: PERRLA, Other Eye Symptoms (yellowish conjunctivae) ENT Exam: Positive: Atraumatic, Other ENT (pale mucous membrane) Neck Exam: Positive: Supple Chest Exam: Positive: Clear to auscultation, Normal air movement Heart Exam: Positive: Rate Normal, Normal S1, Normal S2 Abdomen Exam: Positive: Normal bowel sounds, Soft Extremity Exam: Positive: Normal pulses Skin Exam: Positive: Other skin issue (pale yellowish skin cold to touch) Neuro Exam: Positive: Strength at 5/5 X4 ext, Sensation Intact Psych Exam: Positive: Oriented x 3 Assessment /Plan Problems (1) Anemia due to gastrointestinal blood loss Status: Acute Problem Text: 52 years old white male with past medical history of end-stage liver cirrhosis, hypertension, hyperlipidemia, diabetes mellitus, GERD, COPD, pancytopenia, history of active use of alcohol was admitted in this hospital in July with the diagnoses of epistaxis when he was stabilized and sent back home, but as per patient, he started noticing dark stools on and off and also increasing tired and fatigued with which he did not pay much attention until he started doing physical therapy. I am and he was too tired to perform physical therapy and decided to come to ER where he was diagnosed with severe anemia most likely secondary to acute on chronic GI bleed. Also was found to have thrombocytopenia with platelets of 31,000 and pancytopenia as well. Patient was also found to have hypo-hypokalemia, hypomagnesemia and elevated troponin, which most likely secondary to ischemic demand affect. Patient's ammonia is within normal range. His TSH is also slightly elevated 5.760, but with normal heart rate. Patient will be admitted to ICU for close monitoring and care IV fluid normal saline 100 mL per hour H&H is stable, 11 count is stable at 23,000 , We will transfuse PRBC and platelet platelets if needed EGD done by Dr. Lopez shows ulcerative esophagitis, no large varices, mild portal gastropathy duodenitis and the bleeding has stopped. We will start. We'll continue PPI and add Carafate Can be transferred to PCU today Progress diet (2) GI bleeding Status: Acute Problem Text: Most likely acute on chronic GI bleed Will change Protonix to by mouth Added Carafate Progress diet Monitor H&H (3) Hypokalemia Status: Acute Problem Text: KCl 20 mEq by IV will be provided (4) Thrombocytopenia Status: Chronic Problem Text: No active bleeding , Platelets stable at 23,000 Monitor platelet levels (5) Hypomagnesemia Status: Resolved Problem Text: Magnesium supplement has been ordered Repeat levels in a.m. (6) Alcoholic cirrhosis Status: Chronic Problem Text: History of alcohol cirrhosis and he still is active drinker Supportive care Plan/VTE VTE Prophylaxis Ordered?: Yes VS, I&O, 24H, Fishbone Vital Signs/I&O Vital Signs Date Time Temp Pulse Resp B/P (MAP) Pulse Ox O2 Delivery O2 Flow Rate FiO2 10/05/18 04:00 2.0 10/05/18 02:57 97 20 145/71 (95) 87 10/05/18 00:29 98.3 10/03/18 14:59 Room Air I&O- Last 24 Hours up to 6 AM 10/05/18 06:00 Intake Total 2250 ml Output Total 1145 ml Balance 1105 ml Laboratory Data 24H LABS Laboratory Tests 2 10/04/18 10:19: Nucleated Red Blood Cells % (auto) 0.0 10/04/18 11:44: Bedside Glucose (Misc Panel) 189H 10/04/18 16:59: Nucleated Red Blood Cells % (auto) 0.0, Immature Platelet Fraction 4.5 10/04/18 17:51: Bedside Glucose (Misc Panel) 150H 10/04/18 21:01: Nucleated Red Blood Cells % (auto) 0.0 10/04/18 23:38: Bedside Glucose (Misc Panel) 191H 10/05/18 03:56: Nucleated Red Blood Cells % (auto) 0.7H, Prothrombin Time 19.3H, Prothromb Time International Ratio 1.65, Anion Gap 12, Glomerular Filtration Rate 31.0L, Blood Urea Nitrogen 54H, Creatinine 2.36H, Sodium Level 139, Potassium Level 3.2L, Chloride Level 107, Carbon Dioxide Level 20L, Calcium Level 7.8L, Aspartate Amino Transf (AST/SGOT) 75H, Alanine Aminotransferase (ALT/SGPT) 34, Alkaline Phosphatase 120H, Total Bilirubin 6.2H, Total Protein 5.8L, Albumin 2.3L, Albumin/Globulin Ratio 0.66L CBC/BMP Laboratory Tests 10/04/18 10:19 Red Blood Count 2.09 L, Mean Corpuscular Volume 91.4, Mean Corpuscular Hemoglobin 29.2, Mean Corpuscular Hemoglobin Concent 31.9 L, Red Cell Distribution Width 19.2 H 10/04/18 16:59 Red Blood Count 2.70 L, Mean Corpuscular Volume 88.1, Mean Corpuscular Hemoglobin 29.3, Mean Corpuscular Hemoglobin Concent 33.2, Red Cell Distribution Width 19.9 H 10/04/18 21:01 Red Blood Count 2.69 L, Mean Corpuscular Volume 88.5, Mean Corpuscular Hemoglobin 28.3, Mean Corpuscular Hemoglobin Concent 31.9 L, Red Cell Distribution Width 20.3 H 10/05/18 03:56 Red Blood Count 2.71 L, Mean Corpuscular Volume 87.8, Mean Corpuscular Hemoglobin 28.8, Mean Corpuscular Hemoglobin Concent 32.8, Red Cell Distribution Width 20.5 H, Calcium Level 7.8 L, Aspartate Amino Transf (AST/SGOT) 75 H, Alanine Aminotransferase (ALT/SGPT) 34, Alkaline Phosphatase 120 H, Total Bilirubin 6.2 H, Total Protein 5.8 L, Albumin 2.3 L Microbiology Microbiology 10/03/18 Blood Culture - Preliminary, Resulted No growth after 24 hours . All specim... 10/03/18 Blood Culture - Preliminary, Resulted No growth after 24 hours . All specim... JANET ZEPEDA MD Oct 05, 2018 08:50
[2018-10-05] MEDS: SUCRALFATE 1 GM TAB PO SCH ×4 (09:33→21:00)
[2018-10-05] MEDS: FOLIC ACID 1 MG TAB PO SCH (09:33)
[2018-10-05] MEDS: THIAMINE 100 MG TAB PO SCH ×2 (09:33→21:00)
[2018-10-05] MEDS: PANTOPRAZOLE 40MG TAB (PROTONIX) PO SCH ×2 (09:34→21:00)
[2018-10-05] MEDS: MULTIVITAMINS/MINERALS THERAP 1 TAB PO SCH (09:34)
[2018-10-05] MEDS: KCL 10MEQ/100ML SWI (KRUN) 10 MEQ in IV 1 EA IV SCH ×2 (09:34→11:34)
[2018-10-05 17:23] LABS: BASO % 0.9 % (0.0-1.0); CALCIUM LEVEL 7.7 MG/DL (8.5-10.1); CREATININE FOR GFR 2.43 MG/DL (0.70-1.30); HEMATOCRIT 23.8 % (42.0-52.0); HEMOGLOBIN 7.8 g/dl (13.5-17.5); LYMPH # 0.5 10^3/uL (1.5-4.5); LYMPH % 13.5 % (24.0-44.0); MEAN CORPUSCULAR HEMOGLOBIN 29.1 pg (27.0-33.0); MEAN CORPUSCULAR HGB CONC 32.8 g/dl (32.0-36.5); MEAN CORPUSCULAR VOLUME 88.8 fl (80.0-96.0); MONO # 0.5 10^3/uL (0.0-0.8); NEUTROPHILS # 2.4 10^3/uL (1.8-7.7); NEUTROPHILS % 70.3 % (36.0-66.0); POTASSIUM SERUM 3.4 MEQ/L (3.5-5.1); RED BLOOD COUNT 2.68 10^6/uL (4.30-6.10); WHITE BLOOD COUNT 3.4 10^3/uL (4.0-10.0)
[2018-10-05 17:24] LABS: PLATELET COUNT, AUTOMATED 26 10^3/uL (150-450)
[2018-10-06 05:22] LABS: ALBUMIN 2.1 GM/DL (3.2-5.2); BILIRUBIN,TOTAL 6.5 MG/DL (0.2-1.0); CALCIUM LEVEL 7.8 MG/DL (8.5-10.1); CREATININE FOR GFR 2.09 MG/DL (0.70-1.30); GLOMERULAR FILTRATION RATE 35.7 (>56); MAGNESIUM LEVEL 1.4 MG/DL (1.8-2.4); POTASSIUM SERUM 3.2 MEQ/L (3.5-5.1); TOTAL PROTEIN 5.5 GM/DL (6.4-8.2)
[2018-10-06 05:31] LABS: BASO % 0.9 % (0.0-1.0); EOS # 0.1 10^3/uL (0.0-0.50); HEMATOCRIT 24.1 % (42.0-52.0); HEMOGLOBIN 7.8 g/dl (13.5-17.5); LYMPH # 0.4 10^3/uL (1.5-4.5); MEAN CORPUSCULAR HEMOGLOBIN 28.9 pg (27.0-33.0); MEAN CORPUSCULAR HGB CONC 32.4 g/dl (32.0-36.5); MEAN CORPUSCULAR VOLUME 89.3 fl (80.0-96.0); MONO # 0.4 10^3/uL (0.0-0.8); MONO % 17.5 % (0.0-5.0); NEUTROPHILS # 1.3 10^3/uL (1.8-7.7); NEUTROPHILS % 57.6 % (36.0-66.0); WHITE BLOOD COUNT 2.2 10^3/uL (4.0-10.0)
[2018-10-06 05:32] LABS: PLATELET COUNT, AUTOMATED 23 10^3/uL (150-450)
[2018-10-06 05:40] LABS: INR 1.78; PROTHROMBIN TIME 20.5 SECONDS (11.8-14.0)
[2018-10-06 06:00] VITALS: BP 89/59
[2018-10-06] MEDS ORDERED: POTASSIUM CHLORIDE 10 MEQ SR TABLET PO ONE (07:00)
[2018-10-06] MEDS: THIAMINE 100 MG TAB PO SCH (08:19)
[2018-10-06] MEDS: PANTOPRAZOLE 40MG TAB (PROTONIX) PO SCH ×2 (08:19→20:17)
[2018-10-06] MEDS: MULTIVITAMINS/MINERALS THERAP 1 TAB PO SCH (08:19)
[2018-10-06] MEDS: FOLIC ACID 1 MG TAB PO SCH (08:19)
[2018-10-06] MEDS: SUCRALFATE 1 GM TAB PO SCH ×4 (08:19→20:17)
[2018-10-06] MEDS: HumaLOG INSULIN (NovoLOG) PER UNIT SC SCH ×4 (08:21→21:00)
[2018-10-06] MEDS: MAG SULF 1GM/100ML (MAG RUN) 1 GM in IV 1 EA IV SCH ×2 (08:21→09:24)
[2018-10-06 08:28] VITALS: BP 110/76
--- NOTE | 2018-10-06 10:08 | CR ---
DATE OF CONSULTATION: 10/04/2018 This is a 52-year-old white male known to me previously who has had multiple hospitalizations for anemia, gastrointestinal (GI) bleeding and alcohol induced advanced liver disease. The patient has pancytopenia secondary to chronic alcohol abuse. The patient continues to drink alcohol in spite of the fact that he says he is not. The patient also has type 2 diabetes. The patient has no complaints of abdominal pain, nausea, vomiting, fevers, night sweats, shaking chills. The patient has had black tarry stools. He has been admitted for increased fatigue. He states he has noted that he has had dark stools since July. He denies any history of cigarette smoking. The patient is being seen by GI for again evaluation of his liver disease and anemia. MEDICATIONS: Include: - albuterol - folic acid - Lasix - medications for diabetes - magnesium - multivitamins - nadolol 40 mg daily - pantoprazole 40 mg p.o. b.i.d. - spirolactone 50 mg p.o. b.i.d. - Carafate 10 mL p.o. b.i.d. ALLERGIES: No known declared allergies to medications. PAST MEDICAL HISTORY: Positive for: Hypertension. Hyperlipidemia. Diabetes. Reflux. Chronic obstructive pulmonary disease (COPD). Chronic alcohol abuse. Pancytopenia secondary to liver cirrhosis. PAST SURGICAL HISTORY: Includes: Right shoulder rotator cuff repair. Variceal banding. SOCIAL HISTORY: The patient denies cigarettes. Alcohol chronic heavy abuse. PHYSICAL EXAMINATION: General: He is a well-developed, well-nourished slightly jaundiced white male in no obvious acute distress. Sclera are icteric being. Skin shows somewhat jaundiced appearance. Chest is clear to auscultation. Cardiovascular exam shows a regular rhythm. No murmurs or gallops. Normal physiological split S1-S2. Abdomen is soft, globose, nontender. No hepatosplenomegaly. Bowel sounds positive. Laboratory studies on admission showed a hemoglobin of 3.2, hematocrit of 11.2. The patient's MCV is 100, platelets of 31,000. On admission white count was 3800. Chemistry shows an albumin of 2.2, his BUN and creatinine are 51 and 1.86, respectively. Sodium is 137, potassium 3.5. His total bilirubin is 7.0, AST is 72, ALT is 31, alkaline phosphatase is 119. Toxicology showed an elevated ethyl alcohol level. INR on admission was 1.76. IMAGING STUDIES: The patient had an abdominal CT on 10/03 which shows gallstones, ascites, splenomegaly and the liver shows radiographic findings consistent with cirrhosis. ANALYSIS: 1. Cirrhosis of the liver secondary to chronic alcohol abuse. 2. Pancytopenia secondary #1. 3. Anemia secondary to #1. 4. Thrombocytopenia secondary to #1. At the present time the patient has refused to stop drinking alcohol which precludes him from being a liver transplant candidate. We have talked to him over the years and he has not ever been able to develop the insight to stop drinking. His liver cirrhosis is advanced. CT scan does not seem to show any evidence of any liver masses at this time. Plan will be to repeat upper endoscopy for reevaluation of his stomach. It is unclear when his last endoscopy was. Plan will be to set the patient up for an upper endoscopy tomorrow, maintain blood transfusions and plan will be to possibly discuss with interventional radiology any options that might help stop his chronic bleeding.
--- NOTE | 2018-10-06 12:13 | IPNPDOC ---
Subjective Date Seen The patient was seen on 10/06/18. Subjective Chief Complaint/HPI Patient is comfortable in no apparent distress rate to be transferred to medical floor General: Denies: ROS Unobtainable, Chills, Night Sweats, Fatigue, Malaise, Normal Appetite, Other Symptoms Constitutional: Denies: Chills, Fever, Malaise, Night Sweats, Weakness, Fatigue, Weight Loss, Lethargy, Other Eyes: Denies: Pain, Vision change, Conjunctivae inflammation, Eyelid inflam mation, Redness, Other ENT: Denies: Head Aches, Ear Pain, Dysphagia, Sinus Congestion, Post Nasal Drip, Sore Throat, Epistaxis, Other Symptoms Skin: Denies: Rash, Lesions, Jaundice, Bruising, Itching, Dry, Breakdown, Nail Changes, Other Pulmonary: Denies: Dyspnea, Cough, Pleuritic Chest Pain, Other Symptoms Cardiovascular: Denies: Chest Pain, Palpitations, Orthopnea, Paroxysmal Noc. Dyspnea, Edema, Lt Headedness, Other Symptoms Gastrointestinal: Denies: Nausea, Vomiting, Abdominal Pain, Diarrhea, Constipation, Melena, Hematochezia, Other Symptoms Musculoskeletal: Denies: Neck Pain, Back Pain, Shoulder Pain, Arm Pain, Hand Pain, Leg Pain, Foot Pain, Joint Pain, Muscle Pain, Spasms, Other Symptoms Neurological: Denies: Weakness, Numbness, Incoordination, Change in speech, Confusion, Seizures, Other Symptoms Objective Physical Examination General Exam: Positive: Alert, Cooperative Eye Exam: Positive: PERRLA, Other Eye Symptoms (yellowish conjunctivae) ENT Exam: Positive: Atraumatic, Other ENT (pale mucous membrane) Neck Exam: Positive: Supple Chest Exam: Positive: Clear to auscultation, Normal air movement Heart Exam: Positive: Rate Normal, Normal S1, Normal S2 Abdomen Exam: Positive: Normal bowel sounds, Soft Extremity Exam: Positive: Normal pulses Skin Exam: Positive: Other skin issue (pale yellowish skin cold to touch) Neuro Exam: Positive: Strength at 5/5 X4 ext, Sensation Intact Psych Exam: Positive: Oriented x 3 Assessment /Plan Problems (1) Anemia due to gastrointestinal blood loss Status: Acute Problem Text: 52 years old white male with past medical history of end-stage liver cirrhosis, hypertension, hyperlipidemia, diabetes mellitus, GERD, COPD, pancytopenia, history of active use of alcohol was admitted in this hospital in July with the diagnoses of epistaxis when he was stabilized and sent back home, but as per patient, he started noticing dark stools on and off and also increasing tired and fatigued with which he did not pay much attention until he started doing physical therapy. I am and he was too tired to perform physical therapy and decided to come to ER where he was diagnosed with severe anemia most likely secondary to acute on chronic GI bleed. Also was found to have thrombocytopenia with platelets of 31,000 and pancytopenia as well. Patient was also found to have hypo-hypokalemia, hypomagnesemia and elevated troponin, which most likely secondary to ischemic demand affect. Patient's ammonia is within normal range. His TSH is also slightly elevated 5.760, but with normal heart rate. Patient will be admitted to ICU for close monitoring and care IV fluid normal saline 100 mL per hour Hemoglobin of 4.1 and platelets are 23, K We will transfuse PRBC and platelet platelets if needed EGD done by Dr. Lopez shows ulcerative esophagitis, no large varices, mild portal gastropathy duodenitis and the bleeding has stopped. We will start. We'll continue PPI and add Carafate Can be transferred to [facility] today Tolerating regular diet (2) GI bleeding Status: Acute Problem Text: Most likely acute on chronic GI bleed Will change Protonix to by mouth Added Carafate Progress diet Monitor H&H (3) Hypokalemia Status: Acute Problem Text: KCl 20 mEq by IV will be provided (4) Thrombocytopenia Status: Chronic Problem Text: No active bleeding , Platelets stable at 23,000 Monitor platelet levels (5) Hypomagnesemia Status: Resolved Problem Text: Magnesium supplement has been ordered Repeat levels in a.m. (6) Alcoholic cirrhosis Status: Chronic Problem Text: History of alcohol cirrhosis and he still is active drinker Supportive care Plan/VTE VTE Prophylaxis Ordered?: Yes VS, I&O, 24H, Fishbone Vital Signs/I&O Vital Signs Date Time Temp Pulse Resp B/P (MAP) Pulse Ox O2 Delivery O2 Flow Rate FiO2 10/06/18 08:28 98.9 104 20 110/76 (87) 94 10/05/18 09:41 2.0 10/03/18 14:59 Room Air I&O- Last 24 Hours up to 6 AM 10/06/18 05:59 Intake Total 1820 ml Output Total 1225 ml Balance 595 ml Laboratory Data 24H LABS Laboratory Tests 2 10/05/18 16:52: Immature Granulocyte % (Auto) 0.3, White Blood Count 3.4L, Red Blood Count 2.68L, Hemoglobin 7.8L, Hematocrit 23.8L, Mean Corpuscular Volume 88.8, Mean Corpuscular Hemoglobin 29.1, Mean Corpuscular Hemoglobin Concent 32.8, Red Cell Distribution Width 21.0H, Platelet Count 26*L, Neutrophils (%) (Auto) 70.3H, Lymphocytes (%) (Auto) 13.5L, Monocytes (%) (Auto) 15.0H, Eosinophils (%) (Auto) 0.0, Basophils (%) (Auto) 0.9, Neutrophils # (Auto) 2.4, Lymphocytes # (Auto) 0.5L, Monocytes # (Auto) 0.5, Eosinophils # (Auto) 0.0, Basophils # (Auto) 0.0, Nucleated Red Blood Cells % (auto) 0.0, Immature Platelet Fraction 5.6, Anion Gap 10, Glomerular Filtration Rate 30.0L, Blood Urea Nitrogen 49H, Creatinine 2.43H, Sodium Level 139, Potassium Level 3.4L, Chloride Level 109H, Carbon Dioxide Level 20L, Calcium Level 7.7L 10/05/18 17:05: Bedside Glucose (Misc Panel) 153H 10/05/18 20:57: Bedside Glucose (Misc Panel) 123H 10/06/18 04:48: Immature Granulocyte % (Auto) 0.0, White Blood Count 2.2L, Red Blood Count 2.70L, Hemoglobin 7.8L, Hematocrit 24.1L, Mean Corpuscular Volume 89.3, Mean Corpuscular Hemoglobin 28.9, Mean Corpuscular Hemoglobin Concent 32.4, Red Cell Distribution Width 21.2H, Platelet Count 23*L, Neutrophils (%) (Auto) 57.6, Lymphocytes (%) (Auto) 18.0L, Monocytes (%) (Auto) 17.5H, Eosinophils (%) (Auto) 6.0H, Basophils (%) (Auto) 0.9, Neutrophils # (Auto) 1.3L, Lymphocytes # (Auto) 0.4L, Monocytes # (Auto) 0.4, Eosinophils # (Auto) 0.1, Basophils # (Auto) 0.0, Nucleated Red Blood Cells % (auto) 0.0, Anion Gap 9, Glomerular Filtration Rate 35.7L, Blood Urea Nitrogen 45H, Creatinine 2.09H, Sodium Level 139, Potassium Level 3.2L, Chloride Level 110H, Carbon Dioxide Level 20L, Calcium Level 7.8L, Prothrombin Time 20.5H, Prothromb Time International Ratio 1.78, Aspartate Amino Transf (AST/SGOT) 58H, Alanine Aminotransferase (ALT/SGPT) 29, Alkaline Phosphatase 107, Total Bilirubin 6.5H, Total Protein 5.5L, Albumin 2.1L, Magnesium Level 1.4L, Albumin/Globulin Ratio 0.62L 10/06/18 10:41: Methicillin-Resist S.aureus DNA PCR NOT DETECTED 10/06/18 11:27: Bedside Glucose (Misc Panel) 200H CBC/BMP Laboratory Tests 10/05/18 16:52 Red Blood Count 2.68 L, Mean Corpuscular Volume 88.8, Mean Corpuscular Hemoglobin 29.1, Mean Corpuscular Hemoglobin Concent 32.8, Red Cell Distribution Width 21.0 H, Neutrophils (%) (Auto) 70.3 H, Lymphocytes (%) (Auto) 13.5 L, Monocytes (%) (Auto) 15.0 H, Eosinophils (%) (Auto) 0.0, Basophils (%) (Auto) 0.9, Neutrophils # (Auto) 2.4, Lymphocytes # (Auto) 0.5 L, Monocytes # (Auto) 0.5, Eosinophils # (Auto) 0.0, Basophils # (Auto) 0.0, Calcium Level 7.7 L 10/06/18 04:48 Red Blood Count 2.70 L, Mean Corpuscular Volume 89.3, Mean Corpuscular Hemoglobin 28.9, Mean Corpuscular Hemoglobin Concent 32.4, Red Cell Distribution Width 21.2 H, Neutrophils (%) (Auto) 57.6, Lymphocytes (%) (Auto) 18.0 L, Monocytes (%) (Auto) 17.5 H, Eosinophils (%) (Auto) 6.0 H, Basophils (%) (Auto) 0.9, Neutrophils # (Auto) 1.3 L, Lymphocytes # (Auto) 0.4 L, Monocytes # (Auto) 0.4, Eosinophils # (Auto) 0.1, Basophils # (Auto) 0.0, Calcium Level 7.8 L, Aspartate Amino Transf (AST/SGOT) 58 H, Alanine Aminotransferase (ALT/SGPT) 29, Alkaline Phosphatase 107, Total Bilirubin 6.5 H, Total Protein 5.5 L, Albumin 2.1 L Microbiology Microbiology 10/03/18 Blood Culture - Preliminary, Resulted No Growth after 48 hours. All Specime... 10/03/18 Blood Culture - Preliminary, Resulted No Growth after 48 hours. All Specime... JANET ZEPEDA MD Oct 06, 2018 12:13
[2018-10-06 14:29] VITALS: BP 137/89
[2018-10-06 22:00] VITALS: BP_SYST 132; BP_DIAS 84; BP_DIAS 88
[2018-10-07 05:50] VITALS: BP 115/72
[2018-10-07 06:00] VITALS: BP 115/72
[2018-10-07 06:15] LABS: INR 1.88; PROTHROMBIN TIME 21.4 SECONDS (11.8-14.0)
[2018-10-07] MEDS ORDERED: POTASSIUM CHLORIDE 10% LIQ 20 MEQ/15 ML UDC PO ONE (08:15)
[2018-10-07] MEDS: HumaLOG INSULIN (NovoLOG) PER UNIT SC SCH ×4 (08:21→21:00)
[2018-10-07] MEDS: MULTIVITAMINS/MINERALS THERAP 1 TAB PO SCH (08:22)
[2018-10-07] MEDS: SUCRALFATE 1 GM TAB PO SCH ×4 (08:22→20:14)
[2018-10-07] MEDS: FOLIC ACID 1 MG TAB PO SCH (08:22)
[2018-10-07] MEDS: PANTOPRAZOLE 40MG TAB (PROTONIX) PO SCH ×2 (08:22→20:14)
--- NOTE | 2018-10-07 10:57 | IPNPDOC ---
Subjective Date Seen The patient was seen on 10/07/18. Subjective Chief Complaint/HPI Patient is in his baseline status. Offers no new complaints. No more episode of his oropharyngeal or Nasal bleeding General: Denies: ROS Unobtainable, Chills, Night Sweats, Fatigue, Malaise, Normal Appetite, Other Symptoms Constitutional: Denies: Chills, Fever, Malaise, Night Sweats, Weakness, Fatigue, Weight Loss, Lethargy, Other Eyes: Denies: Pain, Vision change, Conjunctivae inflammation, Eyelid inflammation, Redness, Other ENT: Denies: Head Aches, Ear Pain, Dysphagia, Sinus Congestion, Post Nasal Drip, Sore Throat, Epistaxis, Other Symptoms Skin: Denies: Rash, Lesions, Jaundice, Bruising, Itching, Dry, Breakdown, Nail Changes, Other Pulmonary: Denies: Dyspnea, Cough, Pleuritic Chest Pain, Other Symptoms Cardiovascular: Denies: Chest Pain, Palpitations, Orthopnea, Paroxysmal Noc. Dyspnea, Edema, Lt Headedness, Other Symptoms Gastrointestinal: Denies: Nausea, Vomiting, Abdominal Pain, Diarrhea, Constipation, Melena, Hematochezia, Other Symptoms Musculoskeletal: Denies: Neck Pain, Back Pain, Shoulder Pain, Arm Pain, Hand Pain, Leg Pain, Foot Pain, Joint Pain, Muscle Pain, Spasms, Other Symptoms Neurological: Denies: Weakness, Numbness, Incoordination, Change in speech, Confusion, Seizures, Other Symptoms Objective Physical Examination General Exam: Positive: Alert, Cooperative Eye Exam: Positive: PERRLA, Other Eye Symptoms (yellowish conjunctivae) ENT Exam: Positive: Atraumatic, Other ENT (pale mucous membrane) Neck Exam: Positive: Supple Chest Exam: Positive: Clear to auscultation, Normal air movement Heart Exam: Positive: Rate Normal, Normal S1, Normal S2 Abdomen Exam: Positive: Normal bowel sounds, Soft Extremity Exam: Positive: Normal pulses Skin Exam: Positive: Other skin issue (pale yellowish skin cold to touch) Neuro Exam: Positive: Strength at 5/5 X4 ext, Sensation Intact Psych Exam: Positive: Oriented x 3 Assessment /Plan Problems (1) Anemia due to gastrointestinal blood loss Status: Acute Problem Text: 52 years old white male with past medical history of end-stage liver cirrhosis, hypertension, hyperlipidemia, diabetes mellitus, GERD, COPD, pancytopenia, history of active use of alcohol was admitted in this hospital in July with the diagnoses of epistaxis when he was stabilized and sent back home, but as per patient, he started noticing dark stools on and off and also increasing tired and fatigued with which he did not pay much attention until he started doing physical therapy. I am and he was too tired to perform physical therapy and decided to come to ER where he was diagnosed with severe anemia most likely secondary to acute on chronic GI bleed. Also was found to have thrombocytopenia with platelets of 31,000 and pancytopenia as well. Patient was also found to have hypo-hypokalemia, hypomagnesemia and elevated troponin, which most likely secondary to ischemic demand affect. Patient's ammonia is within normal range. His TSH is also slightly elevated 5.760, but with normal heart rate. Patient will be admitted to ICU for close monitoring and care EGD done by Dr. Lopez shows ulcerative esophagitis, no large varices, mild portal gastropathy duodenitis and the bleeding has stopped. We will start. We'll continue PPI and add Carafate Physical therapy is in progress His hemoglobin is 7.8, hematocrit 24.1 and platelets are 23,000, which has been stable since last few days Patient can be discharged home in a.m. once the repeat electrolytes , potassium and magnesium are within normal range Discharge patient home on by mouth PPIs and Carafate He will follow up with his GI within 1 week (2) GI bleeding Status: Acute Problem Text: Most likely acute on chronic GI bleed Continue Protonix and Carafate Tolerating regular diet (3) Hypokalemia Status: Acute Problem Text: KCl liquid for 40 mEq given today Repeat potassium levels in a.m. (4) Thrombocytopenia Status: Chronic Problem Text: No active bleeding , Platelets stable at 23,000 Monitor platelet levels (5) Hypomagnesemia Status: Resolved Problem Text: . Magnesium sulfate 1 g IV 1 dose given today Repeat magnesium level in a.m. (6) Alcoholic cirrhosis Status: Chronic Problem Text: History of alcohol cirrhosis and he still is active drinker Supportive care Plan/VTE VTE Prophylaxis Ordered?: Yes VS, I&O, 24H, Fishbone Vital Signs/I&O Vital Signs Date Time Temp Pulse Resp B/P (MAP) Pulse Ox O2 Delivery O2 Flow Rate FiO2 10/07/18 06:00 97.9 101 17 115/72 (86) 97 10/05/18 09:41 2.0 10/03/18 14:59 Room Air I&O- Last 24 Hours up to 6 AM 10/07/18 06:00 Intake Total 1560 ml Balance 1560 ml Laboratory Data 24H LABS Laboratory Tests 2 10/06/18 11:27: Bedside Glucose (Misc Panel) 200H 10/06/18 16:49: Bedside Glucose (Misc Panel) 174H 10/06/18 20:49: Bedside Glucose (Misc Panel) 119H 10/07/18 05:38: Prothrombin Time 21.4H, Prothromb Time International Ratio 1.88 10/07/18 06:06: Bedside Glucose (Misc Panel) 179H Microbiology Microbiology 10/03/18 Blood Culture - Preliminary, Resulted No Growth after 72 hours. All specime... 10/03/18 Blood Culture - Preliminary, Resulted No Growth after 72 hours. All specime... JANET ZEPEDA MD Oct 07, 2018 10:57
[2018-10-07] MEDS ORDERED: MAG SULF 1GM/100ML (MAG RUN) 1 GM in IV 1 EA IV ONE (11:00)
[2018-10-07 14:00] VITALS: BP 127/93
[2018-10-07 22:00] VITALS: BP_SYST 119; BP_SYST 145; BP_DIAS 74; BP_DIAS 82
[2018-10-08 06:00] VITALS: BP 125/76
[2018-10-08 06:05] LABS: BASO % 1.2 % (0.0-1.0); EOS # 0.1 10^3/uL (0.0-0.50); EOS % 4.4 % (0.0-3.0); HEMATOCRIT 26.1 % (42.0-52.0); HEMOGLOBIN 8.3 g/dl (13.5-17.5); LYMPH # 0.5 10^3/uL (1.5-4.5); LYMPH % 19.7 % (24.0-44.0); MEAN CORPUSCULAR HEMOGLOBIN 28.7 pg (27.0-33.0); MEAN CORPUSCULAR HGB CONC 31.8 g/dl (32.0-36.5); MEAN CORPUSCULAR VOLUME 90.3 fl (80.0-96.0); MONO # 0.5 10^3/uL (0.0-0.8); MONO % 18.1 % (0.0-5.0); NEUTROPHILS # 1.4 10^3/uL (1.8-7.7); NEUTROPHILS % 56.2 % (36.0-66.0); RED BLOOD COUNT 2.89 10^6/uL (4.30-6.10); WHITE BLOOD COUNT 2.5 10^3/uL (4.0-10.0)
[2018-10-08 06:21] LABS: INR 1.88; PROTHROMBIN TIME 21.4 SECONDS (11.8-14.0)
[2018-10-08 06:23] LABS: PLATELET COUNT, AUTOMATED 25 10^3/uL (150-450)
[2018-10-08 06:26] LABS: ALBUMIN 2.1 GM/DL (3.2-5.2); CALCIUM LEVEL 8.3 MG/DL (8.5-10.1); CREATININE FOR GFR 1.35 MG/DL (0.70-1.30); GLOMERULAR FILTRATION RATE 59.1 (>56); MAGNESIUM LEVEL 1.5 MG/DL (1.8-2.4); POTASSIUM SERUM 4.1 MEQ/L (3.5-5.1); TOTAL PROTEIN 5.6 GM/DL (6.4-8.2)
[2018-10-08] MEDS: FOLIC ACID 1 MG TAB PO SCH (09:45)
[2018-10-08] MEDS: MAG SULF 1GM/100ML (MAG RUN) 1 GM in IV 1 EA IV SCH ×2 (09:45→11:10)
[2018-10-08] MEDS: MULTIVITAMINS/MINERALS THERAP 1 TAB PO SCH (09:45)
[2018-10-08] MEDS: PANTOPRAZOLE 40MG TAB (PROTONIX) PO SCH (09:45)
[2018-10-08] MEDS: HumaLOG INSULIN (NovoLOG) PER UNIT SC SCH ×2 (09:45→12:00)
[2018-10-08] MEDS: SUCRALFATE 1 GM TAB PO SCH ×2 (09:45→13:26)
--- NOTE | 2018-10-08 12:51 | DS.PDOC ---
Discharge Summary General Date of Admission Oct 03, 2018 at 17:26 Date of Discharge 10/08/18 Discharge Summary PROCEDURES PERFORMED DURING STAY: [None]. ADMITTING DIAGNOSES: 1. Acute blood loss anemia 2. GI Bleed 3. Chronic alcohol abuse 4. Liver cirrhosis 2/2 alcohol 5. HTN 6. HLD 7. DM 8. GERD 9. COPD 10. Pancytopenia DISCHARGE DIAGNOSES: 1. Acute blood loss anemia 2. GI Bleed 3. Chronic alcohol abuse 4. Liver cirrhosis 2/2 alcohol 5. HTN 6. HLD 7. DM 8. GERD 9. COPD 10. Pancytopenia COMPLICATIONS/CHIEF COMPLAINT: Anemia D/T Gastrointestinal Blood Loss. HISTORY OF PRESENT ILLNESS: "This is 52 years old white male with past medical history of advanced liver disease, pancytopenia secondary to alcohol abuse, type 2 diabetes mellitus was admitted in this hospital in July of this year with the diagnosis of a nosebleed and what discharge once he was stabilized. As per patient, he has not been feeling well since his discharge he has increasing tired, weakness and fatigue and recently started physical therapy, but he was so tired he was unable to finish it. He denies any chest pain, shortness of breath, nausea, vomiting, diarrhea, or loss of consciousness. As per patient, he did notice dark stools since July but he didn't pay much attention to it. Patient's last drink was yesterday and he denies smoking" HOSPITAL COURSE: Patient was admitted for stabelization and underwent EGD by GI/Dr. Lopez with evidence of ulcerative esophagitis with mild portal gastropathy duodenitis but no large varices noted. Bleeding resolved and Hb remained stable. Platelets were noted to be low with no evidence of further bleeding however. Pancytopenia noted but has been chronic 2/2 chronic alcohol use. Patient appear well today and denies any having complaints at all. Will discharge to follow up with PMD as well as GI within 1 week. DISCHARGE MEDICATIONS: Please see below. ALLERGIES: Please see below. PHYSICAL EXAMINATION ON DISCHARGE: VITAL SIGNS: Please see below. General: No acute distress, Alert Eyes: EOMI, YOCASTA HENT: Atraumatic, neck supple, moist mucous membranes Cardiovascular: Normal rate, normal rhythm. Pulmonary: Clear to auscultation b/l, no wheezing GI: Soft, nontender, nondistended Skin: Warm and dry Neuro: CN grossly intact. No focal deficits. Strengths equal b/l. Psych: oriented x 3 LABORATORY DATA: Please see below. IMAGING: Abdominal/pelvis CT- IMPRESSION: Cholelithiasis, status quo. Ascites, splenomegaly and evidence of cirrhosis status quo. There is no evidence of acute intra-abdominal or intrapelvic disease or significant change compared to 01/31/2018. CT Chest angio- IMPRESSION: 1. No evidence of a thoracic aortic abnormality. 2. Findings involving the imaged upper abdomen as described above. Please refer to the abdominal and pelvic CT obtained same day. 3. Likely subsegmental atelectatic changes in the lung andrew. Consider followup if clinically relevant. 4. Other findings as described above. Head CT- IMPRESSION: Essentially unremarkable CT examination of the brain. ACTIVITY: [As tolerated]. DIET: Regular DISCHARGE PLAN: f/u PMD and GI within 1 week DISPOSITION: Home. DISCHARGE INSTRUCTIONS: f/u PMD and GI within 1 week ITEMS TO FOLLOWUP ON ON OUTPATIENT: None DISCHARGE CONDITION: [Stable]. TIME SPENT ON DISCHARGE: 33 minutes. Vital Signs/I&Os Vital Signs Date Time Temp Pulse Resp B/P (MAP) Pulse Ox O2 Delivery O2 Flow Rate FiO2 10/08/18 06:00 98.1 97 17 125/76 (92) 98 10/05/18 09:41 2.0 10/03/18 14:59 Room Air I&O- Last 24 Hours up to 6 AM 10/08/18 06:00 Intake Total 1400 ml Output Total 0 ml Balance 1400 ml Laboratory Data Labs 24H Laboratory Tests 2 10/07/18 16:30: Bedside Glucose (Misc Panel) 219H 10/07/18 20:40: Bedside Glucose (Misc Panel) 190H 10/08/18 05:25: Immature Granulocyte % (Auto) 0.4, White Blood Count 2.5L, Red Blood Count 2.89L, Hemoglobin 8.3L, Hematocrit 26.1L, Mean Corpuscular Volume 90.3, Mean Corpuscular Hemoglobin 28.7, Mean Corpuscular Hemoglobin Concent 31.8L, Red Cell Distribution Width 22.5H, Platelet Count 25*L, Neutrophils (%) (Auto) 56.2, Lymphocytes (%) (Auto) 19.7L, Monocytes (%) (Auto) 18.1H, Eosinophils (%) (Auto) 4.4H, Basophils (%) (Auto) 1.2H, Neutrophils # (Auto) 1.4L, Lymphocytes # (Auto) 0.5L, Monocytes # (Auto) 0.5, Eosinophils # (Auto) 0.1, Basophils # (Auto) 0.0, Nucleated Red Blood Cells % (auto) 0.0, Immature Platelet Fraction 0.8, Prothrombin Time 21.4H, Prothromb Time International Ratio 1.88, Anion Gap 8, Glomerular Filtration Rate 59.1, Blood Urea Nitrogen 28H, Creatinine 1.35H, Sodium Level 143, Potassium Level 4.1#, Chloride Level 113H, Carbon Dioxide Level 22, Calcium Level 8.3L, Aspartate Amino Transf (AST/SGOT) 46H, Alanine Aminotransferase (ALT/SGPT) 26, Alkaline Phosphatase 140H, Total Bilirubin 7.0H, Total Protein 5.6L, Albumin 2.1L, Magnesium Level 1.5L, Albumin/Globulin Ratio 0.60L 10/08/18 11:39: Bedside Glucose (Misc Panel) 212H CBC/BMP Laboratory Tests 10/08/18 05:25 Red Blood Count 2.89 L, Mean Corpuscular Volume 90.3, Mean Corpuscular Hemoglobin 28.7, Mean Corpuscular Hemoglobin Concent 31.8 L, Red Cell Distribution Width 22.5 H, Neutrophils (%) (Auto) 56.2, Lymphocytes (%) (Auto) 19.7 L, Monocytes (%) (Auto) 18.1 H, Eosinophils (%) (Auto) 4.4 H, Basophils (%) (Auto) 1.2 H, Neutrophils # (Auto) 1.4 L, Lymphocytes # (Auto) 0.5 L, Monocytes # (Auto) 0.5, Eosinophils # (Auto) 0.1, Basophils # (Auto) 0.0, Calcium Level 8.3 L, Aspartate Amino Transf (AST/SGOT) 46 H, Alanine Aminotransferase (ALT/SGPT) 26, Alkaline Phosphatase 140 H, Total Bilirubin 7.0 H, Total Protein 5.6 L, Albumin 2.1 L FSBS Laboratory Tests Test 10/07/18 16:30 10/07/18 20:40 10/08/18 11:39 Range/Units Bedside Glucose (Misc Panel) 219 190 212 70-105 MG/DL Microbiology Microbiology 10/03/18 Blood Culture - Preliminary, Resulted No Growth after 72 hours. All specime... 10/03/18 Blood Culture - Preliminary, Resulted No Growth after 72 hours. All specime... Discharge Medications Scheduled Acamprosate Calcium (Acamprosate Calcium) 333 Mg Tab, 666 MG PO TID, (Reported) Albuterol Sulf (Albuterol Sulfate) 2.5 Mg/3 Ml Nebu, 1 VIAL NEB QID, (Reported) Folic Acid (Folic Acid) 1 Mg Tablet, 1 MG PO DAILY, (Reported) Furosemide (Furosemide) 40 Mg Tab, 40 MG PO DAILY, (Reported) Insulin Glargine,Hum.rec.anlog (Lantus Solostar) 100 Unit/1 Ml Insuln.pen, 30 UNITS SC QAM, (Reported) Insulin Glargine,Hum.rec.anlog (Lantus Solostar) 100 Unit/1 Ml Insuln.pen, 40 UNIT SC QPM, (Reported) TAKES BEFORE DINNERTIME Magnesium Oxide (Magnesium Oxide) 400 Mg Tab, 400 MG PO DAILY, (Reported) Multivitamins (Thera M Plus Tablet) 1 Tab Tab, 1 TAB PO DAILY, (Reported) Nadolol (Nadolol) 40 Mg Tab, 40 MG PO DAILY, (Reported) Pantoprazole Sodium (Pantoprazole Sodium) 40 Mg Tablet.dr, 40 MG PO BID, (Reported) Spironolactone (Spironolactone) 50 Mg Tablet, 50 MG PO BID, (Reported) Sucralfate (Carafate) 1 Gm/10 Ml Maria G, 10 ML PO BID, (Reported) Scheduled PRN Albuterol Sulfate (Proair Hfa) 108 Mcg/Act Aer, 2 PUFF INH Q4H PRN for SHORTNESS OF BREATH, (Reported) Allergies Coded Allergies: ENVIROMENTAL (Verified Allergy, Unknown, 09/12/11) ANAHI KWAN MD Oct 08, 2018 12:51
== END 2018-10-08 14:41 | disposition home or self-care (01) | DRG 378 ==
LOC: EDBD 14:47 → M ED 14:47 → M ED INP 17:26 → EEVIPCON 17:26 → M ICU 19:50 → M MSPAV 10-06 14:23
PROVIDERS: ADMIT Internal Medicine; ATTEND Student in an Organized Health Care Education/Training Program
PROC: 30233N1 Transfusion of Nonautologous Red Blood Cells into Peripheral Vein, Percutaneous Approach (ICD-10-PCS; principal; 2018-10-03)
PROC: 30233R1 Transfusion of Nonautologous Platelets into Peripheral Vein, Percutaneous Approach (ICD-10-PCS; 2018-10-04)
PROC: 0DJ08ZZ Inspection of Upper Intestinal Tract, Via Natural or Artificial Opening Endoscopic (ICD-10-PCS; 2018-10-05)
DX: K92.2 Gastrointestinal hemorrhage, unspecified (principal); D62 Acute posthemorrhagic anemia; D61.818 Other pancytopenia; K29.80 Duodenitis without bleeding; K20.9 Esophagitis, unspecified; I10 Essential (primary) hypertension; K21.9 Gastro-esophageal reflux disease without esophagitis; K70.30 Alcoholic cirrhosis of liver without ascites; J44.9 Chronic obstructive pulmonary disease, unspecified; Z79.4 Long term (current) use of insulin; Z79.899 Other long term (current) drug therapy; E78.5 Hyperlipidemia, unspecified; E87.6 Hypokalemia; E83.42 Hypomagnesemia; K31.89 Other diseases of stomach and duodenum

== ENCOUNTER → 2019-05-17 | Outpatient (REF) ==
[~2019-05-17] MED LIST changes: +PANT-23 PO
== END ==
LOC: M LAB 14:26